=== PATIENT | female | born 1970 | race Two or more races ===

== ENCOUNTER 2020-03-19 14:58 | Outpatient (REF) | payer OTHER, SELFPAY | END 2020-03-19 14:59 | disposition home or self-care (01) | LOC: HO.LAB 14:58 | PROVIDERS: Visit Provider Internal Medicine | DX: Z20.828 Contact with and (suspected) exposure to other viral communicable diseases (principal) | CPT/HCPCS: C9803; U0003 ==

== ENCOUNTER 2020-03-23 13:32 | Outpatient (REF) | payer OTHER, SELFPAY ==
--- NOTE | 2020-03-23 13:39 | XR_ITS ---
EXAMINATION: XR CHEST CLINICAL INFORMATION: Cough COMPARISON: Previous chest x-ray December 2019 TECHNIQUE: 2 views of the chest were obtained. FINDINGS: No significant abnormality is noted involving the heart, lungs, mediastinum, bony thorax or soft tissues. XR/XR chest 2V IMPRESSION: Unremarkable examination.
== END 2020-03-23 13:33 | disposition home or self-care (01) ==
LOC: HO.XRAY 13:32
PROVIDERS: Absent Provider General Practice; PCP General Practice; Visit Provider Internal Medicine
DX: R05 Cough (principal)
CPT/HCPCS: 71046

== ENCOUNTER 2020-06-07 08:00 | Outpatient (REF) | payer MEDICAID, SELFPAY ==
--- NOTE | 2020-06-07 | PFT_ITS ---
Forced vital capacity and FEV1 are both slightly decreased. FEV1/FVC ratio is normal. [id number] and MVV are normal. Post bronchodilator therapy, there is no significant change. Total lung capacity normal. Residual volume is moderately increased. Diffusion capacity normal. CONCLUSION: FVC and FEV1 slightly decreased, but total lung capacity is normal, so there is no evidence of obstructive or restrictive pulmonary disorder. No response to bronchodilator therapy. Residual volume is moderately increased. This could be due to technical reason or some degree of air trapping. Clinical correlation recommended. MD SHANNON Whitman/MODL / [id number]
== END 2020-06-07 08:01 | disposition home or self-care (01) ==
LOC: HO.RESP 08:00
PROVIDERS: PCP General Practice; Visit Provider General Practice
DX: R05 Cough (principal); F17.210 Nicotine dependence, cigarettes, uncomplicated
CPT/HCPCS: 94060; 94727; 94729

== ENCOUNTER 2020-07-12 11:30 | Outpatient (REF) | payer MEDICAID, SELFPAY ==
--- NOTE | ~2020-07-12 | XR_ITS ---
EXAMINATION: RIGHT ANKLE AND FOOT X-RAY CLINICAL INFORMATION: Pain COMPARISON: None TECHNIQUE: 3 views of the right ankle and 3 views of the right foot FINDINGS: Right ankle: Bone alignment is normal. No fracture or dislocation is seen. The ankle mortise is normal. Soft tissues are normal. Right foot: Bone alignment is normal. No fracture or dislocation is seen. The joint spaces are normal. There are calcaneal spurs. Soft tissues are otherwise normal. XR/XR ankle RT min 3V IMPRESSION: Calcaneal spurs otherwise unremarkable exam.
--- NOTE | ~2020-07-12 | XR_ITS ---
EXAMINATION: RIGHT ANKLE AND FOOT X-RAY CLINICAL INFORMATION: Pain COMPARISON: None TECHNIQUE: 3 views of the right ankle and 3 views of the right foot FINDINGS: Right ankle: Bone alignment is normal. No fracture or dislocation is seen. The ankle mortise is normal. Soft tissues are normal. Right foot: Bone alignment is normal. No fracture or dislocation is seen. The joint spaces are normal. There are calcaneal spurs. Soft tissues are otherwise normal. XR/XR foot RT 2V IMPRESSION: Calcaneal spurs otherwise unremarkable exam.
== END 2020-07-12 11:31 | disposition home or self-care (01) ==
LOC: HO.XRAY 11:30
PROVIDERS: PCP General Practice; Visit Provider Student in an Organized Health Care Education/Training Program
DX: M25.571 Pain in right ankle and joints of right foot (principal)
CPT/HCPCS: 73610; 73620

== ENCOUNTER → 2020-08-10 09:01 | Outpatient (BNVA) | payer MEDICAID, SELFPAY | PROVIDERS: PCP General Practice; Visit Provider Internal Medicine Pulmonary Disease | DX: R05 Cough (principal); R06.00 Dyspnea, unspecified | CPT/HCPCS: 99202 ==

== ENCOUNTER 2020-10-27 13:04 | Outpatient (REF) | payer MEDICAID, SELFPAY ==
--- NOTE | ~2020-10-27 | MM_ITS ---
EXAMINATION: MM SCREENING DIGITAL BREAST TOMOSYNTHESIS, BILATERAL CLINICAL INFORMATION: Screening. Asymptomatic. The lifetime risk of breast cancer based on the Tyrer-Cuzick Model is 9%. COMPARISON: Mammography: 09/17/2018, 09/17/2015 TECHNIQUE: Digital breast tomosynthesis is performed in both the craniocaudal and mediolateral oblique views along with computer-aided detection (CAD). Synthesized 2D images are generated from the tomosynthesis. Additional left CC view is provided. FINDINGS: The breasts are almost entirely fatty (ACR BI-RADS breast composition Category a). There are no significant masses, abnormal calcifications, or other abnormalities. Background stromal markings are stable. The axilla and skin contours are unremarkable. MM/MM tomosynthesis screening BI IMPRESSION: No mammographic evidence of malignancy. ASSESSMENT: BI-RADS 1: Negative RECOMMENDATION: Routine annual mammography screening. This patient's information was entered into a reminder system with a target due date for their next mammogram.
== END 2020-10-27 13:05 | disposition home or self-care (01) ==
LOC: HO.MAMMO 13:04
PROVIDERS: PCP General Practice; Visit Provider General Practice
DX: Z12.31 Encounter for screening mammogram for malignant neoplasm of breast (principal)
CPT/HCPCS: 77063; 77067

== ENCOUNTER 2020-12-17 08:55 | Outpatient (REF) | payer MEDICAID, SELFPAY ==
[2020-12-17 09:50] LABS: COVID-19 Test Negative (Negative)
== END 2020-12-17 08:56 | disposition home or self-care (01) ==
LOC: HO.LAB 08:55
PROVIDERS: PCP General Practice; Visit Provider Internal Medicine
DX: Z20.822 Contact with and (suspected) exposure to COVID-19 (principal)
CPT/HCPCS: 36415; 87635; C9803

== ENCOUNTER 2021-02-11 09:15 | Outpatient (REF) | payer MEDICAID, SELFPAY ==
[2021-02-11 12:13] LABS: TSH reflex Free T4 1.31 uIU/mL (0.32-4.0)
[2021-02-11 12:21] LABS: Folate 4.6 ng/mL (> or = 4.0); Vitamin B12 449 pg/mL (200-900)
[2021-02-14 16:16] LABS: Transglutaminase Ab IgG <1.0 U/mL; Transglutaminase IgA <1.0 U/mL
[2021-02-17 17:22] LABS: Vitamin D 25-OH, D2 <4 ng/mL; Vitamin D 25-OH, D3 21 ng/mL; Vitamin D 25-OH, Total 21 ng/mL (30-100)
== END 2021-02-11 09:16 | disposition home or self-care (01) ==
LOC: HO.LAB 09:15
PROVIDERS: PCP General Practice; Referring Provider General Practice; Visit Provider Nurse Practitioner Family
DX: K21.9 Gastro-esophageal reflux disease without esophagitis (principal); K58.2 Mixed irritable bowel syndrome; R14.0 Abdominal distension (gaseous); R13.10 Dysphagia, unspecified; R19.7 Diarrhea, unspecified; R10.11 Right upper quadrant pain; E55.9 Vitamin D deficiency, unspecified
CPT/HCPCS: 36415; 82306; 82607; 82746; 83516; 84443; 99202

== ENCOUNTER 2021-03-18 10:22 | Outpatient (REF) | payer MEDICAID, SELFPAY ==
--- NOTE | ~2021-03-18 | FL_ITS ---
EXAMINATION: FL BARIUM SWALLOW CLINICAL INFORMATION: Dysphagia COMPARISON: None TECHNIQUE: Barium swallow examination is performed using fluoroscopic evaluation in addition to multiple fluoroscopic spot views. The patient is imaged both upright and prone and using both thick and thin sulfate along with effervescent granules. Fluoroscopy time: 2.2 minutes DAP: 10.509 Gycm2 Images: 57 FINDINGS: Following oral administration of thin, thick barium, barium coated saltine crackers and barium coated turkey in upright view there is normal propagation of bolus from the oral cavity through the pharynx, esophagus into the stomach without any evidence of obstruction, narrowing or stricture. There is no laryngeal penetration or aspiration or retention of barium in the valleculae or piriform sinuses. On placing patient supine and prone lying and oral administration of thick barium there is good distention of the entire esophagus without any intraluminal filling defect or extrinsic impression. No gastroesophageal reflux seen in supine or lying position. FL/FL barium swallow IMPRESSION: Unremarkable barium swallow exam. No obstructive or constricting lesions seen. No intraluminal filling defect.
== END 2021-03-18 10:23 | disposition home or self-care (01) ==
LOC: HO.XRAY 10:22
PROVIDERS: Visit Provider Nurse Practitioner Family
DX: R13.10 Dysphagia, unspecified (principal)
CPT/HCPCS: 74220

== ENCOUNTER → 2021-05-12 08:01 | Outpatient (BNVA) | payer MEDICAID, SELFPAY | PROVIDERS: PCP General Practice; Referring Provider General Practice; Visit Provider Nurse Practitioner Family | DX: K21.9 Gastro-esophageal reflux disease without esophagitis (principal); K58.1 Irritable bowel syndrome with constipation; R14.0 Abdominal distension (gaseous) | CPT/HCPCS: 99212 ==

== ENCOUNTER 2021-09-01 02:58 | Emergency (ER) | payer MEDICAID, SELFPAY ==
[2021-09-01 03:23] VITALS: BP 115/53; PULSE 84; RESP 16; TEMP 36.1; O2SAT 97; BMI 42.5
[2021-09-01 03:25] LABS: Basophils Percent Auto 0.3 % (0-2); Eosinophils Absolute Auto 0.3 X10*3/uL (0.0-0.4); Eosinophils Percent Auto 3.7 % (0-4); Hematocrit 42.7 % (37.0-47.0); Hemoglobin 14.1 g/dl (12.0-16.0); Imm Gran Abs Auto 0.02 X10*3/uL (0.00-0.03); Imm Gran Pct Auto 0.2 % (0.0-0.4); Lymphocytes Percent Auto 33.7 % (20-40); MANUAL DIFF FLAG NO; Mean Corpuscular Hemoglobin 28.3 pg (27.0-33.0); Mean Corpuscular Volume 85.7 fL (80.0-98.0); Mean Platelet Volume 8.3 fL (9.4-12.3); Monocytes Absolute Auto 0.6 X10*3/uL (0.1-1.2); Monocytes Percent Auto 7.2 % (2-11); Neutrophils Absolute Auto 4.9 x10*3/uL (2.0-8.3); Neutrophils Percent Auto 54.9 % (45-73); Platelet Count 285 X10*3/uL (160-400); Red Blood Count 4.98 X10*6/uL (4.20-5.50); Red Cell Distribution Width 14.1 % (11.0-16.0); White Blood Count 8.9 X10*3/uL (4.8-10.8)
[2021-09-01 03:27] LABS: Appearance Urine CLEAR; Color Urine YELLOW; Glucose Urine UA NEG (NEG); Leukocyte Esterase Urine NEG (NEG); Nitrite Urine NEG (NEG); Specific Gravity - Urine 1.025 (1.005-1.025); Urine Blood NEG (NEG); Urine Ketones NEG (NEG); Urine Protein NEG (NEG-TRACE)
[2021-09-01 03:28] LABS: UPreg QC Valid YES; Urine Pregnancy NEGATIVE (NEGATIVE)
[2021-09-01 03:44] LABS: Alanine Aminotransferase 12 U/L (0-31); Albumin Level 3.7 g/dL (3.5-5.0); Alkaline Phosphatase 86 U/L (39-117); Anion Gap 11 (12-20); Aspartate Amino Transferase 12 U/L (5-31); Bilirubin Total 0.2 mg/dL (0.0-1.0); Blood Urea Nitrogen 10 mg/dL (9-16); Calcium 9.1 mg/dL (8.4-10.2); Carbon Dioxide 25 mmol/L (22-29); Chloride 106 mmol/L (96-108); Creatinine Clr Calc Pharmacy 105.1; Estimated Glomerular Filt Rate > 60; Glucose Random 94 mg/dL (60-115); Lipase 17 U/L (8-78); Potassium 4.4 mmol/L (3.3-5.1); Sodium 138 mmol/L (135-145); Total Protein 6.6 g/dL (6.5-8.0)
--- NOTE | 2021-09-01 08:03 | ED.GENADULT ---
HPI - General Adult General Chief complaint: Abdominal Pain Stated complaint: Back pain/Abd pain Time Seen by Provider: 09/01/21 08:03 Source: patient and family () Mode of arrival: ambulatory Limitations: no limitations History of Present Illness HPI narrative: Patient is a 51 year old female presenting to the emergency department today with generalized abdominal pain and diarrhea. Patient states that she has this pain intermittently and this time it has been worsening since Sunday. Patient denies any dizziness, lightheadedness, nausea, vomiting, fever, chills, blurry vision, double vision, loss of vision, chest pain, difficulty breathing, shortness of breath, back pain, night sweats, pain with urination, increased urinary frequency, increased urinary urgency, blood in her urine or stool, syncope or a near syncopal episode, recent trauma or falls, bowel incontinence, bladder incontinence, bowel retention, bladder retention, or any other complaints at this time. Patient states that she has never seen a GI Specialist for this. Onset (ago): day(s) Location: abdomen Radiation: non-radiation Severity: mild Severity scale (1-10): 4 Quality: dull Pain Consistency: intermittent Relieving factors: none Exacerbating factors: none Associated symptoms: denies other symptoms Treatments prior to arrival: none Related Data Home Medications Medication Instructions Recorded Confirmed acetaminophen 500 mg tablet 500 mg PO Q6H PRN 02/11/21 (Tylenol Extra Strength) Previous Rx's Medication Instructions Recorded methylcellulose (laxative) 500 mg 500 mg PO DAILY #30 tab 02/11/21 tablet (Citrucel) cholecalciferol (vitamin D3) 50 50 mcg PO DAILY #30 cap 05/12/21 mcg (2,000 unit) capsule omeprazole 20 mg capsule,delayed 20 mg PO DAILY #30 cap 05/12/21 release sennosides 8.6 mg tablet (Natural 8.6 mg PO BEDTIME #30 tab 05/12/21 Senna Laxative) Allergies Allergy/AdvReac Type Severity Reaction Status Date / Time Penicillins Allergy Unknown Verified 09/01/21 03:24 Review of Systems Constitutional: Constitutional: Reports no additional constitutional complaints, Denies chills, Denies fever(s) and Denies night sweats Eyes: Eyes: Reports no additional eye complaints, Denies blurry vision, Denies change in vision, Denies diplopia, Denies eye discharge, Denies loss of vision and Denies eye pain ENT: Denies dizziness Cardiovascular: Cardiovascular: Reports no additional cardiovascular complaints, Denies chest pain, Denies lightheadedness, Denies Loss of Consciousness and Denies dyspnea Respiratory: Respiratory: Reports no additional respiratory complaints and Denies dyspnea Gastrointestinal: Gastrointestinal: Reports no additional gastrointestinal complaints, Reports abdominal pain, Denies melena, Denies hematochezia, Denies change in bowel habits, Denies change in stool character and Reports diarrhea Genitourinary: Genitourinary: Denies hematuria, Denies urinary frequency, Denies dysuria, Denies urinary incontinence, Denies urinary hesitancy and Denies urinary urgency Musculoskeletal: Musculoskeletal: Reports no additional musculoskeletal complaints, Denies numbness and Denies tingling Neurologic: Denies dizziness, Denies loss of vision, Denies numbness and Denies tingling Psychiatric: Psychiatric: Reports no additional psychiatric complaints Endocrine: Endocrine: Reports no additional endocrine complaints Hematologic/Lymphatic: Hematologic/Lymphatic: Reports no additional hematologic/lymphatic complaints Allergic/Immunologic: Allergic/Immunologic: Reports no additional allergic/immunologic complaints PMFSH Past Medical History Attestation statement: The following information was validated with the patient. Source: old records reviewed Surgical History History of esophagogastroduodenoscopy (EGD) Hx of section Family History Family History Mother Cancer Social History Social History Years Smoked: since 19 yrs old Advance Directives: Yes Advance Directives Information Provided: Yes Advance Directives on File: No Physical Exam ED Vital Signs: Vital Signs - 24 hr 09/01/21 03:23 Temperature 97 F Pulse Rate 84 Respiratory Rate 16 Blood Pressure 115/53 L Pulse Oximetry 97 BMI result Body Mass Index 42.5 Const General: cooperative, no acute distress, alert and awake Nutritional Appearance: well nourished Orientation/consciousness: patient oriented x3 Limitations: no limitations HENMT Head: Yes normal to inspection and Yes atraumatic Ears: hearing grossly normal bilaterally and external ears normal General nose exam: Normal external nose present, no nasal discharge noted and no epistaxis Face and sinus: Yes normal facial exam, No abrasion and No laceration Mouth: Normal oral and palatal mucosa present, no drooling and no muffled voice Eyes General: appearance normal, both eyes and all related structures Periorbital: periorbital findings normal Eyelids: Yes eyelids normal Conjunctivae: conjunctivae normal Pupils: Equal, round and reactive pupils present EOM: EOMs intact bilaterally Neck Neck: Yes normal visual inspection, Yes full ROM and Yes no lymphadenopathy Chest Chest palpation & inspection: normal inspection of the chest Resp Effort & Inspection: normal respiratory effort and able to speak in complete sentences Auscultation: clear to auscultation bilaterally Cardio Rate: regular rate Rhythm: regular rhythm GI Inspection: Yes normal to inspection Palpation (GI): Soft to palpation, not firm, nontender, no guarding and not rigid Neuro General: patient oriented x3 and moves all extremities Cranial nerves: Yes Equal, round and reactive pupils present Cognition (Neuro): normal cognition Motor exam (neuro): 5/5 motor strength present throughout Sensory Exam: Normal double simultaneous stimulation for sensation Coordination: [id number] test normal Extrem General: Yes normal to inspection, Yes full ROM and Yes capillary refill normal Psych Appearance: grossly normal Mental Status: mental status grossly normal Affect: normal affect Attitude: cooperative Thought process: Normal thought process present Thought content: Normal thought content present Insight: Good insight present (Psych) Medical Decision Making [facility] Narrative Medical decision making narrative: Patient is a 51 year old female presenting to the emergency department today with diarrhea and generalized abdominal pain. Patient's physical exam was unremarkable, including a normal abdominal examination. Patient's blood work was unremarkable. Patient's urine showed no acute process. I explained my physical exam findings as well as all test results to the patient and the patient's . I answered all questions asked by the patient and the patient's . Patient stated that she absolutely did not want to wait for a CT scan or any further testing and that she wanted to go. I explained to the patient that while it's unlikely she has an infectious process in her abdomen, I do not have the ability to rule it out definitively without imaging. Patient states that she understands that and wants to leave. I stressed the importance of the patient taking her medication as prescribed. I stressed the importance of the patient following up with her primary care provider and a GI specialist. I stressed the importance of the patient returning to the emergency department immediately if her symptoms were to worsen or if she were to develop any dizziness, shortness of breath, difficulty breathing, chest pain, blurry vision, loss of vision, nausea, vomiting, abdominal pain, fever, chills, back pain, or any other complaints. Patient and the patient's verbalized agreement and understanding with this treatment plan and discharge. Differential Diagnosis Differential Diagnosis: gastroenteritis, abdominal pain Medical Records Medical records reviewed: Yes I reviewed the patient's medical records. Lab Data Lab results reviewed: Yes I reviewed the patient's lab results. Result diagrams: 09/01/21 03:20 09/01/21 03:20 Labs: Lab Results 09/01/21 09/01/21 09/01/21 Range/Units 03:20 03:20 03:20 WBC 8.9 (4.8-10.8) X10*3/uL RBC 4.98 (4.20-5.50) X10*6/uL Hgb 14.1 (12.0-16.0) g/dl Hct 42.7 (37.0-47.0) % MCV 85.7 (80.0-98.0) fL MCH 28.3 (27.0-33.0) pg MCHC 33.0 (31.0-35.0) g/dl RDW 14.1 (11.0-16.0) % Plt Count 285 (160-400) X10*3/uL MPV 8.3 L (9.4-12.3) fL Immature Gran % (Auto) 0.2 (0.0-0.4) % Neut % (Auto) 54.9 (45-73) % Lymph % (Auto) 33.7 (20-40) % Sumner % (Auto) 7.2 (2-11) % Eos % (Auto) 3.7 (0-4) % Baso % (Auto) 0.3 (0-2) % Lymph # (Auto) 3.0 (1.2-4.9) X10*3/uL Sumner # (Auto) 0.6 (0.1-1.2) X10*3/uL Eos # (Auto) 0.3 (0.0-0.4) X10*3/uL Baso # (Auto) 0.0 (0.0-0.2) X10*3/uL Abs Immat Gran (auto) 0.02 (0.00-0.03) X10*3/uL Absolute Neuts (auto) 4.9 (2.0-8.3) x10*3/uL Absolute Nucleated RBC 0.000 (0.0-0.012) X10*3/uL Nucleated RBC % (auto) 0.0 (0.0-0.2) /100WBC Sodium 138 (135-145) mmol/L Potassium 4.4 (3.3-5.1) mmol/L Chloride 106 (96-108) mmol/L Carbon Dioxide 25 (22-29) mmol/L Anion Gap 11 L (12-20) BUN 10 (9-16) mg/dL Creatinine 0.71 (0.5-1.4) mg/dL Estim Creat Clear Calc 105.1 Estimated GFR > 60 Random Glucose 94 (60-115) mg/dL Calcium 9.1 (8.4-10.2) mg/dL Total Bilirubin 0.2 (0.0-1.0) mg/dL AST 12 (5-31) U/L ALT 12 (0-31) U/L Alkaline Phosphatase 86 (39-117) U/L Total Protein 6.6 (6.5-8.0) g/dL Albumin 3.7 (3.5-5.0) g/dL Lipase 17 (8-78) U/L Urine Color YELLOW Urine Appearance CLEAR Urine pH 6.0 (5.0-8.0) Ur Specific Emmett 1.025 (1.005-1.025) Urine Protein NEG (NEG-TRACE) MG/DL Urine Glucose (UA) NEG (NEG) MG/DL Urine Ketones NEG (NEG) MG/DL Urine Blood NEG (NEG) Urine Nitrite NEG (NEG) Ur Leukocyte Esterase NEG (NEG) Urine Test (NEGATIVE) 09/01/21 Range/Units 03:20 WBC (4.8-10.8) X10*3/uL RBC (4.20-5.50) X10*6/uL Hgb (12.0-16.0) g/dl Hct (37.0-47.0) % MCV (80.0-98.0) fL MCH (27.0-33.0) pg MCHC (31.0-35.0) g/dl RDW (11.0-16.0) % Plt Count (160-400) X10*3/uL MPV (9.4-12.3) fL Immature Gran % (Auto) (0.0-0.4) % Neut % (Auto) (45-73) % Lymph % (Auto) (20-40) % Sumner % (Auto) (2-11) % Eos % (Auto) (0-4) % Baso % (Auto) (0-2) % Lymph # (Auto) (1.2-4.9) X10*3/uL Sumner # (Auto) (0.1-1.2) X10*3/uL Eos # (Auto) (0.0-0.4) X10*3/uL Baso # (Auto) (0.0-0.2) X10*3/uL Abs Immat Gran (auto) (0.00-0.03) X10*3/uL Absolute Neuts (auto) (2.0-8.3) x10*3/uL Absolute Nucleated RBC (0.0-0.012) X10*3/uL Nucleated RBC % (auto) (0.0-0.2) /100WBC Sodium (135-145) mmol/L Potassium (3.3-5.1) mmol/L Chloride (96-108) mmol/L Carbon Dioxide (22-29) mmol/L Anion Gap (12-20) BUN (9-16) mg/dL Creatinine (0.5-1.4) mg/dL Estim Creat Clear Calc Estimated GFR Random Glucose (60-115) mg/dL Calcium (8.4-10.2) mg/dL Total Bilirubin (0.0-1.0) mg/dL AST (5-31) U/L ALT (0-31) U/L Alkaline Phosphatase (39-117) U/L Total Protein (6.5-8.0) g/dL Albumin (3.5-5.0) g/dL Lipase (8-78) U/L Urine Color Urine Appearance Urine pH (5.0-8.0) Ur Specific Emmett (1.005-1.025) Urine Protein (NEG-TRACE) MG/DL Urine Glucose (UA) (NEG) MG/DL Urine Ketones (NEG) MG/DL Urine Blood (NEG) Urine Nitrite (NEG) Ur Leukocyte Esterase (NEG) Urine Test NEGATIVE (NEGATIVE) Discharge Plan Discharge Clinical Impression: Gastroenteritis Patient Disposition: Home, Self-Care Instructions: Gastroenteritis (DC) Additional Instructions: Follow up with your primary care provider. Return to the emergency department immediately if your symptoms worsen or if you develop any dizziness, shortness of breath, difficulty breathing, chest pain, blurry vision, loss of vision, nausea, vomiting, abdominal pain, fever, chills, back pain, or any other complaints. Prescriptions: No Action acetaminophen [Tylenol Extra Strength] 500 mg tablet 500 mg PO Q6H [id number] Citrucel 500 mg tablet 500 mg PO DAILY Qty: 30 2RF Rx Instructions: take it with full glass of water after breakfast omeprazole 20 mg capsule,delayed release(DR/EC) 20 mg PO DAILY Qty: 30 6RF Rx Instructions: half an hour before breakfast cholecalciferol (vitamin D3) 50 mcg (2,000 unit) capsule 50 mcg PO DAILY Qty: 30 6RF sennosides [Natural Senna Laxative] 8.6 mg tablet 8.6 mg PO BEDTIME Qty: 30 6RF Referrals: [facility] [place]enterology Services [place] [facility] [place] [facility] [place] [facility] [Provider Group] [facility] [place] [facility] [Provider Group] Interventions: ED Discharge Assessment Last Done: 09/01/21 08:12 Discharge Date/Time: 09/01/21 08:13 Print Language: Ukrainian
--- NOTE | 2021-09-01 08:08 | PC.NURSE ---
after speaking with provider, pt and left ed
== END 2021-09-01 08:13 | disposition home or self-care (01) ==
PROVIDERS: Emergency Provider Emergency Medicine
DX: K52.9 Noninfective gastroenteritis and colitis, unspecified (principal); M54.50 Low back pain, unspecified; R10.9 Unspecified abdominal pain; Z79.899 Other long term (current) drug therapy
CPT/HCPCS: 36415; 80053; 81003; 81025; 83690; 85025; 99283; 99284

== ENCOUNTER → 2022-12-11 11:15 | Outpatient (BNV) | payer MEDICAID, SELFPAY | PROVIDERS: Visit Provider Radiology Diagnostic Radiology | DX: Z12.31 Encounter for screening mammogram for malignant neoplasm of breast (principal) | CPT/HCPCS: 77063; 77067 ==

== ENCOUNTER 2022-12-11 11:33 | Outpatient (REF) | payer MEDICAID, SELFPAY ==
--- NOTE | ~2022-12-11 | MM_ITS ---
EXAMINATION: MM SCREENING DIGITAL BREAST TOMOSYNTHESIS, BILATERAL CLINICAL INFORMATION: Screening. Asymptomatic. COMPARISON: Mammography: This study is compared with prior exams dating back to 2016. TECHNIQUE: Digital breast tomosynthesis is performed in both the craniocaudal and mediolateral oblique views along with computer-aided detection (CAD). Synthesized 2D images are generated from the tomosynthesis. FINDINGS: The breasts are almost entirely fatty (ACR BI-RADS breast composition Category a). There are no significant masses, abnormal calcifications, or other abnormalities. MM/MM tomosynthesis screening BI IMPRESSION: No mammographic evidence of malignancy. ASSESSMENT: BI-RADS BI-RADS 1 - Negative RECOMMENDATION: Routine annual mammography screening. 1 year F/U This examination should not preclude the clinical evaluation of a suspicious palpable abnormality. This patient's information was entered into a reminder system with a target due date for their next mammogram.
== END 2022-12-11 11:34 | disposition home or self-care (01) ==
LOC: HO.MAMMO 11:33
PROVIDERS: Visit Provider General Practice
DX: Z12.31 Encounter for screening mammogram for malignant neoplasm of breast (principal)
CPT/HCPCS: 77063; 77067

== ENCOUNTER 2023-03-06 08:01 | Outpatient (REF) | payer MEDICAID, SELFPAY ==
[2023-03-06 11:39] LABS: Alanine Aminotransferase 12 U/L (0-31); Albumin Level 3.8 g/dL (3.5-5.0); Alkaline Phosphatase 93 U/L (39-117); Anion Gap 10 (12-20); Aspartate Amino Transferase 16 U/L (5-31); Bilirubin Total 0.3 mg/dL (0.0-1.0); Blood Urea Nitrogen 10 mg/dL (9-16); Calcium 9.1 mg/dL (8.4-10.2); Carbon Dioxide 28 mmol/L (22-29); Chloride 105 mmol/L (96-108); Cholesterol 171 mg/dL (<200); Estimated Glomerular Filt Rate > 60; Glucose Random 95 mg/dL (60-115); HDL Cholesterol 43 mg/dL (>40); LDL Cholesterol Calculated 115 mg/dL (<100); Potassium 3.7 mmol/L (3.3-5.1); Sodium 139 mmol/L (135-145); Triglycerides 68 mg/dL (<150)
[2023-03-06 11:43] LABS: Estimated Average Glucose 111 mg/dL; Hemoglobin A1c % 5.5 % (<6.0)
== END 2023-03-06 08:02 | disposition home or self-care (01) ==
LOC: HO.HHCL 08:01
PROVIDERS: Visit Provider General Practice
DX: E66.3 Overweight (principal)
CPT/HCPCS: 36415; 80053; 80061; 83036

== ENCOUNTER 2023-05-08 09:21 | Outpatient (AMB) | payer MEDICAID, SELFPAY ==
--- NOTE | 2023-05-08 09:29 | A.OFFVIS_ITS ---
Intake Vital Signs 05/08/23 09:34 Height 5 ft 1 in Weight 231 lb 7.766 oz BMI 43.7 BP 107/62 Blood Pressure Location Lt brachial Position Sitting Pulse 80 Intake Visit Reasons: Rediscuss Colonoscopy Screening Intake Note: Violette presents in the office to dom having a colonoscopy. CC: She states that she does not want to do the procedure at all. 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 Back in January 2021 patient was asked to have H pylori testing done. Patient forgot to do it. Patient also reports that she has not been taking any of the medications that are prescribed to her. Patient only takes it when she has severe acid reflux. Patient reports that this happens about couple times a week. Patient states that she learned to live with that. Discussed with p atient the importance of avoiding dietary triggers and late night snacking. Stressed importance of staying upright for minimal 3 hours after meals. I will print directions for patient's on how to take medications and she will put it some were visible that will remind her to take the medications. IBS (irritable bowel syndrome) Postprandial abdominal bloating most likely related to the food that she eats. Patient reports to be constipated. If she does not have a bowel movement for 2-3 days she will have postprandial bloating. Patient has not been using Senokot or Citrucel on a daily basis is ordered. Patient reports that she will a cane will gently use it when she needs it. I stressed to her the importance of moving her bowels every day and feeling like she empty it completely Abdominal bloating Postprandial abdominal bloating especially if she does not have bowel movement for 2-3 days. Patient was encouraged to take prescribed Citrucel and Senokot to her. Also discussed with her avoiding dietary triggers. FODMAP diet discussed with her. Food that is recommended and food to avoid. List provided. I will see patient in 6 months. Patient will call me sooner if she will continue to have GI concerning symptoms. Patient was encouraged to going get her stool sample for H pylori. She is agreeable to plan of care and verbalizes understanding of instructions. She was given the opportunity to ask questions and all questions answered. ? Thank you for allowing me to participate in her care Plan Medications Changed From omeprazole half an hour before breakfast and half an hour before dinner 20 mg PO BID 60 caps 0RF K21.9 To omeprazole half an hour before breakfast 20 mg PO DAILY 30 caps 6RF K21.9 Refilled cholecalciferol (vitamin D3) 50 mcg PO DAILY 30 caps 6RF R79.89 sennosides (Natural Senna Laxative) 8.6 mg PO BEDTIME 30 tabs 6RF constipation K59.00 TODAY'S VISIT Patient is here today for follow-up. Patient states that she does not want to go for colonoscopy. Patient reports that she continues to have epigastric discomfort postprandially with dyspepsia without dysphagia or odynophagia. Patient states that she has not taken omeprazole as it was not helpful. Patient states that she is not avoiding any food, not on any particular diet. Patient has not done any of the test for H pylori that was ordered back in 2020. Patient has not seen me for almost 2 years. Patient denies any nausea or vomiting. Denies melena, hematochezia, unintentional weight loss or ribbon like stools. Patient denies any abdominal pain or discomfort. [facility] Surgical History History of esophagogastroduodenoscopy (EGD) Hx of section Family History Mother Cancer Social History Years Smoked: since 19 yrs old Review of Systems Const Denies weight gain and Denies weight loss ENT Reports no additional complaints, Denies dysphagia and Denies odynophagia Card Reports no additional complaints Resp Reports no additional complaints GI Reports abdominal pain (Epigastric), Denies belching, Denies melena, Denies bloating, Denies change in bowel habits, Denies dysphagia, Denies excessive flatus, Reports dyspepsia, Reports heartburn, Denies diarrhea, Denies loose stools, Denies nausea, Denies odynophagia and Denies vomiting Reports no additional complaints Musc Reports no additional complaints Neuro Reports no additional complaints Psych Reports no additional complaints Endo Reports no additional complaints Physical Exam Vital Signs: Last Vital Signs Pulse 80 05/08/23 09:34 BP 107/62 05/08/23 09:34 BMI result Body Mass Index 43.7 Const General: healthy appearing, no acute distress and well developed Nutritional Appearance: obese Orientation/consciousness: patient oriented x3 Resp Effort & Inspection: normal respiratory effort, able to speak in complete sentences, no tracheal deviation and symmetric chest movement Auscultation: clear to auscultation bilaterally Cardio Rate: regular rate GI Inspection: Yes normal to inspection, No distended and Yes obesity Palpation (GI): Soft to palpation, not firm, nontender and No hepatosplenomegaly present Auscultation: normal bowel sounds General: Yes no CVA tenderness Back/Spine/Pelvis Back: no CVA tenderness Skin General skin exam: elasticity normal, turgor normal and dry skin Neuro General: patient oriented x3 Psych Appearance: grossly normal Mental Status: mental status grossly normal Assessment & Plan Assessment & Plan (1) GERD (gastroesophageal reflux disease): Code(s): K21.9 - Gastro-esophageal reflux disease without esophagitis Qualifiers: Esophagitis presence: esophagitis presence not specified Qualified Code(s): K21.9 - Gastro-esophageal reflux disease without esophagitis (2) Postprandial epigastric pain: Code(s): R10.13 - Epigastric pain (3) IBS (irritable bowel syndrome): Code(s): K58.9 - Irritable bowel syndrome without diarrhea Qualifiers: Irritable bowel syndrome type: without diarrhea Qualified Code(s): K58.9 - Irritable bowel syndrome without diarrhea (4) Abdominal bloating: Code(s): R14.0 - Abdominal distension (gaseous) (5) Screen for colon cancer: Code(s): Z12.11 - Encounter for screening for malignant neoplasm of colon Plan Patient will avoid dietary triggers and late night snacking. Staying upright for minimum 3 hours after meals discussed with patient. Patient will stop omeprazole and start taking Nexium daily. Patient is refusing still to go for colonoscopy. Will order Cologuard. Patient will follow-up in 4 weeks, sooner on as needed basis. Patient is agreeable to this plan and verbalizes understanding of instructions. She was given the opportunity to ask questions and all questions answered. Thank you for allowing me to participate in her care Medications: New esomeprazole magnesium (Nexium) 40 mg PO DAILY 30 caps 5RF K21.9 - Gastro- esophageal reflux disease without esophagitis cholecalciferol (vitamin D3) 50 mcg PO DAILY 90 caps 3RF R79.89 - Other specified abnormal findings of blood chemistry Discontinued omeprazole half an hour before breakfast Discontinued Reason: Doctor's Order 20 mg PO DAILY 30 caps 6RF K21.9 - Gastro-esophageal reflux disease without esophagitis Coding Level of Care Code Est Pt Level 4 (82090) Diagnoses Gastroesophageal reflux disease, unspecified whether esophagitis present K21.9 Esophagitis presence: esophagitis presence not specified Postprandial epigastric pain R10.13 Irritable bowel syndrome without diarrhea K58.9 Irritable bowel syndrome type: without diarrhea Abdominal bloating R14.0 Screen for colon cancer Z12.11 Time Spent (min) 40 Comment 25 minutes spent with patient and additional 15 minutes spent reviewing her r ecords
[2023-05-08 09:34] VITALS: BP 107/62; PULSE 80; BMI 43.7
== END 2023-05-08 09:55 | disposition home or self-care (01) ==
PROVIDERS: Visit Provider Nurse Practitioner Family
DX: K21.9 Gastro-esophageal reflux disease without esophagitis (principal); K58.9 Irritable bowel syndrome, unspecified
CPT/HCPCS: 99214

== ENCOUNTER → 2023-05-08 09:21 | Outpatient (BNVA) | payer MEDICAID, SELFPAY | PROVIDERS: Visit Provider Nurse Practitioner Family | DX: K21.9 Gastro-esophageal reflux disease without esophagitis (principal); R10.13 Epigastric pain; K58.9 Irritable bowel syndrome, unspecified; R14.0 Abdominal distension (gaseous) | CPT/HCPCS: 99212 ==

== ENCOUNTER 2023-07-06 09:16 | Outpatient (AMB) | payer MEDICAID, SELFPAY ==
--- NOTE | 2023-07-06 09:20 | A.OFFVIS_ITS ---
Intake Vital Signs 07/06/23 09:22 Height 5 ft 1 in Weight 220 lb BMI 41.6 BP 111/64 Blood Pressure Location Lt brachial Position Sitting Pulse 85 Intake Visit Reasons: 2 month follow up Intake Note: Patient follow up for abdominal bloating Patient cc: abdominal bloating and esophagus inflammation, GERD is better with medication. 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 Staying upright for minimum 3 hours after meals discussed with patient. Patient will stop omeprazole and start taking Nexium daily. Patient is refusing still to go for colonoscopy. Will order Cologuard. Patient will follow-up in 4 weeks, sooner on as needed basis. Patient is agreeable to this plan and verbalizes understanding of instructions. She was given the opportunity to ask questions and all questions answered. ? Thank you for allowing me to participate in her care Medications New esomeprazole magnesium (Nexium) 40 mg PO DAILY 30 caps 5RF K21.9 cholecalciferol (vitamin D3) 50 mcg PO DAILY 90 caps 3RF R79.89 Discontinued omeprazole half an hour before breakfast Discontinued Reason: Doctor's Order 20 mg PO DAILY 30 caps 6RF K21.9 TODAY'S VISIT Patient is here today for follow-up. Patient reports that she has been feeling much better after starting Nexium, however she occasionally will feel burning sensation in epigastric area, feeling like there is something swollen or inflamed. Patient reports that she had an episode of severe epigastric pain and heartburn after eating pizza late at night. Patient reports that she is starting to change her diet, avoiding eating late at night, avoiding fast food and sweets. Patient's Cologuard came back negative. Patient denies melena, hematochezia, unintentional weight loss or ribbon like stools. Patient reports dyspepsia without dysphagia or odynophagia. Patient had no issues with anesthesia in the past. Not taking any anticoagulation medication. No history of sleep apnea. [facility] Surgical History History of esophagogastroduodenoscopy (EGD) Hx of section Family History Mother Cancer Social History Years Smoked: since 19 yrs old Review of Systems Const Denies weight gain and Denies weight loss ENT Reports no additional complaints, Denies dysphagia and Denies odynophagia Card Reports no additional complaints Resp Reports no additional complaints GI Denies abdominal pain, Denies belching, Denies melena, Denies bloating, Denies change in bowel habits, Denies dysphagia, Denies excessive flatus, Denies dyspepsia, Reports heartburn (occasional), Denies diarrhea, Denies loose stools, Denies nausea, Denies odynophagia and Denies vomiting Reports no additional complaints Musc Reports no additional complaints Neuro Reports no additional complaints Psych Reports no additional complaints Endo Reports no additional complaints Physical Exam Vital Signs: Last Vital Signs Pulse 85 07/06/23 09:22 BP 111/64 07/06/23 09:22 BMI result Body Mass Index 41.6 Const General: healthy appearing, no acute distress and well developed Nutritional Appearance: obese Orientation/consciousness: patient oriented x3 Resp Effort & Inspection: normal respiratory effort, able to speak in complete sentences, no tracheal deviation and symmetric chest movement Auscultation: clear to auscultation bilaterally Cardio Rate: regular rate GI Inspection: Yes normal to inspection, No distended and Yes obesity Palpation (GI): Soft to palpation, not firm, nontender and No hepatosplenomegaly present Auscultation: normal bowel sounds General: Yes no CVA tenderness Back/Spine/Pelvis Back: no CVA tenderness Skin General skin exam: elasticity normal, turgor normal and dry skin Neuro General: patient oriented x3 Psych Appearance: grossly normal Mental Status: mental status grossly normal Assessment & Plan Assessment & Plan (1) GERD (gastroesophageal reflux disease): Code(s): K21.9 - Gastro-esophageal reflux disease without esophagitis Qualifiers: Esophagitis presence: esophagitis presence not specified Qualified Code(s): K21.9 - Gastro-esophageal reflux disease without esophagitis (2) Postprandial epigastric pain: Code(s): R10.13 - Epigastric pain (3) IBS (irritable bowel syndrome): Code(s): K58.9 - Irritable bowel syndrome without diarrhea Qualifiers: Irritable bowel syndrome type: without diarrhea Qualified Code(s): K58.9 - Irritable bowel syndrome without diarrhea (4) Abdominal bloating: Code(s): R14.0 - Abdominal distension (gaseous) (5) Screen for colon cancer: Code(s): Z12.11 - Encounter for screening for malignant neoplasm of colon Plan Discussed with patient avoiding dietary triggers and late night snacking. Continue Nexium. Will add famotidine at bedtime staying upright for minimum 3 hours after meals discussed with patient. Patient reports epigastric burning, denies chest pain or shortness of breath with or without activity. Will send patient for upper GI study and for upper endoscopy to rule out gastritis, esophagitis, duodenitis, gastric or peptic ulcers, H pylori, Yin's. I will see patient after the procedure, sooner on as needed basis. Patient is agreeab le to this plan and verbalizes understanding of instructions. She was given the opportunity to ask questions and all questions answered. Thank you for allowing me to participate in her care Orders: Orders FL upper GI series Today K21.9 - Gastro-esophageal reflux disease without esophagitis Medications: New famotidine 40 mg PO BEDTIME 30 tabs 3RF K21.9 - Gastro-esophageal reflux disease without esophagitis Coding Level of Care Code Est Pt Level 4 (88675) Diagnoses Gastroesophageal reflux disease, unspecified whether esophagitis present K21.9 Esophagitis presence: esophagitis presence not specified Postprandial epigastric pain R10.13 Irritable bowel syndrome without diarrhea K58.9 Irritable bowel syndrome type: without diarrhea Abdominal bloating R14.0 Screen for colon cancer Z12.11 Time Spent (min) 35 Comment 20 minutes spent with patient and additional 15 minutes spent reviewing her records
[2023-07-06 09:22] VITALS: BP 111/64; PULSE 85; BMI 41.6
== END 2023-07-06 10:07 | disposition home or self-care (01) ==
PROVIDERS: Visit Provider Nurse Practitioner Family
DX: K21.9 Gastro-esophageal reflux disease without esophagitis (principal); R10.13 Epigastric pain; K58.9 Irritable bowel syndrome, unspecified; R14.0 Abdominal distension (gaseous); Z12.11 Encounter for screening for malignant neoplasm of colon
CPT/HCPCS: 99214

== ENCOUNTER → 2023-07-06 09:16 | Outpatient (BNVA) | payer MEDICAID, SELFPAY | PROVIDERS: Visit Provider Nurse Practitioner Family | DX: K21.9 Gastro-esophageal reflux disease without esophagitis (principal); R10.13 Epigastric pain; K58.9 Irritable bowel syndrome, unspecified; R14.0 Abdominal distension (gaseous); Z12.11 Encounter for screening for malignant neoplasm of colon | CPT/HCPCS: 99212 ==

== ENCOUNTER 2023-08-31 15:59 | Outpatient (REF) | payer MEDICAID, SELFPAY ==
[2023-08-31 17:37] LABS: MANUAL DIFF FLAG NO
[2023-08-31 17:53] LABS: Basophils Percent Auto 0.5 % (0-2); Eosinophils Absolute Auto 0.2 X10*3/uL (0.0-0.4); Eosinophils Percent Auto 2.2 % (0-4); Hematocrit 41.4 % (37.0-47.0); Hemoglobin 14.1 g/dl (12.0-16.0); Imm Gran Abs Auto 0.02 X10*3/uL (0.00-0.03); Imm Gran Pct Auto 0.2 % (0.0-0.4); Lymphocytes Absolute Auto 2.7 X10*3/uL (1.2-4.9); Lymphocytes Percent Auto 32.2 % (20-40); Mean Corpuscular HGB Conc 34.1 g/dl (31.0-35.0); Mean Corpuscular Hemoglobin 29.3 pg (27.0-33.0); Mean Corpuscular Volume 85.9 fL (80.0-98.0); Mean Platelet Volume 8.9 fL (9.4-12.3); Monocytes Absolute Auto 0.6 X10*3/uL (0.1-1.2); Monocytes Percent Auto 6.7 % (2-11); Neutrophils Absolute Auto 4.8 x10*3/uL (2.0-8.3); Neutrophils Percent Auto 58.2 % (45-73); Platelet Count 307 X10*3/uL (160-400); Red Blood Count 4.82 X10*6/uL (4.20-5.50); Red Cell Distribution Width 13.8 % (11.0-16.0); White Blood Count 8.3 X10*3/uL (4.8-10.8)
[2023-08-31 18:51] LABS: TSH reflex Free T4 0.99 uIU/mL (0.32-4.0)
[2023-09-01 09:40] LABS: Bacterial Vaginosis PCR POSITIVE (Negative); Candida Group PCR NOT DETECTED (Not Detect); Candida glab krusei PCR NOT DETECTED (Not Detect); Trichomonas vaginalis PCR NOT DETECTED (Not Detect)
[2023-09-07 03:14] LABS: HPV mRNA E6/E7 rflx Not Detected (Not Detected)
== END 2023-08-31 16:00 | disposition home or self-care (01) ==
LOC: HO.HHCL 15:59
PROVIDERS: Visit Provider General Practice
DX: N95.0 Postmenopausal bleeding (principal)
CPT/HCPCS: 0352U; 36415; 84443; 85025; 87624; 88142

== ENCOUNTER 2023-09-04 09:35 | Outpatient (REF) | payer MEDICAID, SELFPAY ==
--- NOTE | ~2023-09-04 | FL_ITS ---
EXAMINATION: XR FLUOROSCOPY UPPER GI WITH AIR CLINICAL INFORMATION: Reflux COMPARISON: Barium swallow 03/2021 TECHNIQUE: Fluoroscopic air contrast upper GI examination was performed utilizing standard techniques with thin and thick barium and effervescent granules. Numerous spot images were obtained, as well as numerous cine runs. FINDINGS: Pharyngeal and hypopharyngeal swallow appeared normal. No penetration or subglottic aspiration. No cricopharyngeal achalasia. No gross hypopharyngeal mass. Dual and single contrast images of the esophagus demonstrate normal caliber, contour, and mucosal pattern. No evidence of stricture, mass, or ulcerations identified. Esophageal peristalsis was mildly disorganized. No evidence of hiatus hernia identified. No significant gastroesophageal reflux was seen during the course of the examination and on reflux views. (Please note we do not use provocative maneuvers as we feel these are nonphysiologic). Dual contrast and single contrast images of the stomach demonstrated normal contour and mucosal pattern without evidence of mass, ulceration, or other abnormality. Contrast freely passed into the gastric antrum and duodenal bulb without delay. Single and air-contrast images of the duodenal bulb demonstrate no abnormality. The duodenal sweep has a normal appearance, course, and mucosal fold appearance. No malrotation. The imaged proximal jejunum has a normal fold pattern and caliber. FLUOROSCOPY TIME: 3 minutes 3 seconds Number of Spot Images: 8 Number of Cine: 15 DOSE AREA PRODUCT: 2910 uGy-m2 (microgray-meter squared) FL/FL upper GI series IMPRESSION: 1. Mildly disorganized esophageal peristalsis, otherwise unremarkable examination. 2. No evidence of reflux, hiatus hernia, stomach, duodenal, or proximal small bowel abnormality. This procedure was performed by Evangelist Monroy PA-C, and supervised by Dr. Hernandez
== END 2023-09-04 09:36 | disposition home or self-care (01) ==
LOC: HO.XRAY 09:35
PROVIDERS: PCP General Practice; Visit Provider Nurse Practitioner Family
DX: K21.9 Gastro-esophageal reflux disease without esophagitis (principal)
CPT/HCPCS: 74240

== ENCOUNTER → 2023-09-04 09:36 | Outpatient (BNV) | payer MEDICAID, SELFPAY | PROVIDERS: PCP General Practice; Visit Provider Physician Assistant Surgical | DX: K21.9 Gastro-esophageal reflux disease without esophagitis (principal) | CPT/HCPCS: 74246 ==

== ENCOUNTER 2023-09-07 16:26 | Outpatient (REF) | payer MEDICAID, SELFPAY ==
--- NOTE | ~2023-09-07 | US_ITS ---
EXAMINATION: US PELVIS CLINICAL INFORMATION: Postmenopausal bleeding COMPARISON: Pelvic ultrasound 03/01/2018, CT scan abdomen and pelvis 04/30/2019 TECHNIQUE: Ultrasound of the pelvis is performed using both transabdominal and transvaginal transducers along with Doppler. Transvaginal imaging is performed due to inadequate visualization transabdominally. FINDINGS: Uterus: The uterus is anteverted and measures 7.5 x 3.3 x 4.6 cm. No focal fibroid The endometrium is thickened for postmenopausal woman, measuring 0.7 cm. The uterus is smooth in contour and has normal myometrial echogenicity. No visible fibroid. Adnexa: Both ovaries are visualized. There is normal color flow to the adnexa. There is no ovarian torsion. There is no pelvic ascites or fluid collection. Right ovary measures 2.2 x 2.4 x 2.2 cm. Volume 5.9 mL. The right ovary contains a 1.5 x 2.0 x 1.7 cm simple cyst which is consistent with a benign simple cyst in a postmenopausal woman. No follow-up imaging recommended. Left ovary measures 1.7 x 2.3 x 1.8 cm. Volume 3.7 mL. US/US pelvic and transvaginal IMPRESSION: 1. Thickened endometrium for postmenopausal woman. Further evaluation 2. 2.0 cm simple right ovarian cyst. This is consistent with a benign simple cyst in a postmenopausal woman. No follow-up imaging recommended. 3. Normal left ovary.
== END 2023-09-07 16:27 | disposition home or self-care (01) ==
LOC: HO.US 16:26
PROVIDERS: PCP General Practice; Visit Provider General Practice
DX: N95.0 Postmenopausal bleeding (principal)
CPT/HCPCS: 76830; 76856

== ENCOUNTER 2023-09-28 16:09 | Outpatient (REF) | payer MEDICAID, SELFPAY ==
[2023-09-28 17:21] LABS: Bacterial Vaginosis PCR NEGATIVE (Negative); Candida Group PCR NOT DETECTED (Not Detect); Candida glab krusei PCR NOT DETECTED (Not Detect); Trichomonas vaginalis PCR NOT DETECTED (Not Detect)
== END 2023-09-28 16:10 | disposition home or self-care (01) ==
LOC: HO.HHCLNP 16:09
PROVIDERS: Visit Provider Nurse Practitioner
DX: N89.8 Other specified noninflammatory disorders of vagina (principal)
CPT/HCPCS: 0352U

== ENCOUNTER 2023-10-30 09:09 | Day surgery (SDC) | payer MEDICAID, SELFPAY ==
--- NOTE | 2023-10-29 12:46 | HO.ANESPROP2 ---
Documented by User: Yanna Novak NP 10/29/23 12:46 HPI - Anesthesia Eval Consult details Narrative: 53yo F for Upper Endoscopy PMFSH Active Problems Active Problems: All Active Problems Dyspnea on exertion (Acute) Chronic cough (Acute) Family History Family History Mother Cancer Surgical History Surgical History Hx of colonoscopy History of esophagogastroduodenoscopy (EGD) Hx of section Social History Social History Patient Tobacco Use Status: Current everyday Tobacco user Years Smoked: since 19 yrs old Are you DNR?: No Advance Directives: No Advance Directives Information Provided: Yes Nutrition Risks: No Nutritional Risk Meds Allergies Allergy/AdvReac Type Severity Reaction Status Date / Time Penicillins Allergy Unknown Verified 07/06/23 09:20 Home Medications ?Medication ?Instructions ?Recorded ?Confirmed ?Last Taken ?Type trazodone 50 mg tablet 50 mg PO BEDTIME PRN 05/08/23 Unknown History Assessment and Plan Assessment Anesthesia Assessment: Chart Reviewed Documented by User: Carmen Albrecht MD 10/30/23 10:30 PMFSH Family History Family History Mother Cancer Family history of problems with anesthesia: No Surgical History Surgical History Hx of colonoscopy History of esophagogastroduodenoscopy (EGD) Hx of section History of Problems with Anesthesia: No Social History Social History Patient Tobacco Use Status: Current everyday Tobacco user Years Smoked: since 19 yrs old Are you DNR?: No Advance Directives: No Advance Directives Information Provided: Yes Nutrition Risks: No Nutritional Risk Meds Allergies Allergy/AdvReac Type Severity Reaction Status Date / Time Penicillins Allergy Unknown Verified 07/06/23 09:20 Home Medications ?Medication ?Instructions ?Recorded ?Confirmed ?Last Taken ?Type trazodone 50 mg tablet 50 mg PO BEDTIME PRN 05/08/23 Unknown History Exam Airway Mallampati Class: II TM Dist: >3cm Neck ROM: Full Heart: rrr Lungs: cta Assessment and Plan Assessment Anesthesia Assessment: Anesthesia Plan Discussed Final Anesthetic Review Family History of Problems with Anesthesia: No History of Problems with Anesthesia: No NPO: Yes ASA Class: II Final Preanesthetic Review: No Changes in Pt Med Stat, Meds/Allgs Chart Reviewed, Consent Obtained/Reviewed and Anes Risks/Benef Reviewed Patient Risk: Low Procedure Risk: Low Anesthetic Plan Anesthetic Plan: MAC: Disposition: Standard PACU
[2023-10-30 06:12] VITALS: BMI 41.9
[2023-10-30 09:22] VITALS: BP 147/65; PULSE 81; RESP 20; TEMP 36.4; O2SAT 97
[2023-10-30] MEDS: Lactated Ringers 1,000 ML 100 ML IVCONT (09:42)
[2023-10-30 09:51] LABS: UPreg QC Valid YES; Urine Pregnancy NEGATIVE (NEGATIVE)
--- NOTE | 2023-10-30 10:29 | MHC.SHP ---
Pre-Procedural Eval Section A - 24 Hr Update-Section A only Date of Service: 10/30/23 Section B - Complete if H&P > 30 days Chief Complaint: Gastro-esophageal reflux disease without esophagit Relevant Family History (Specify if Yes): No Relevant Social History: Tobacco Use Present Medications: see Short Stay Collaborative assessment Medical History: Significant History (gerd) History of Previous Operations: Relevant previous surgery/procedure and date(s) ( History of esophagogastroduodenoscopy (EGD) Hx of section) Allergies: Allergies Allergy/AdvReac Type Severity Reaction Status Date / Time Penicillins Allergy Unknown Verified 07/06/23 09:20 Review of Systems Sugical H&P ROS: Negative: Constitution, Cardiovascular, Respiratory, Neurological, Psychiatric, Hem-Onc, Allergic/Immunologic, Gastrointestinal, Genitourinary, Musculoskeletal, Integumentary, Endocrine and Eyes/Ears/Nose/Throat Exam Surgical H&P Exam: Normal: HEENT, Normal: Heart, Normal: Lungs, Normal: Extremities, Normal: Abdomen, Normal: Skin and Normal: Neurological Plan Diagnosis/Plan: Unchanged I have reviewed the history and physical and performed a pertinent physical examination on my patient. No changes have occurred unless specified. Time Spent With Patient Time: Total time managing care of this patient today ____ minutes.
--- NOTE | 2023-10-30 11:10 | W.PM.OPN ---
Operative Note Operative Note Date of Service: 10/30/23 Narrative: Procedure Description: EGD Indication: epigastric pain Anesthesia: MAC FLEXIBLE TRANSORAL UPPER GASTROINTESTINAL ENDOSCOPY UPPER ENDOSCOPY Consent: Indications for the procedure and potential complications of bleeding, perforation, reaction to medications and missed diagnosis were discussed with the patient and informed consent was obtained. Instrument: Olympus GIF H 190 J mid size upper endoscope Monitoring: Vital signs and clinical assessment, continuous EKG monitoring, Pulse oximetry, Carbon Dioxide monitoring and blood pressure monitoring were done throughout the procedure. Procedure: The patient was placed in the left lateral decubitis position and pre-procedure medications were administered and a bite block was placed. The endoscope was inserted into the mouth and advanced under direct vision to the third part of duodenum. A careful inspection was made as the upper endoscope was withdrawn including a retroflexed examination of the proximal stomach; Findings and interventions are described below. Findings: Larynx:normal Esophagus: GE junction at 38 cm, diaphragm hiatus at 40 cm, consistent with 2 cm sliding hiatal hernia, with schatzki ring noted, bx taken from distal and proximal esophagus Stomach: patchy erythema and scarring . Biopsies were obtained. Grade 2 flap valve on retroflexed examination of the cardia. Duodenum: Normal bulb and descending duodenum, bx taken Intervention: Biopsies as noted above, Impression/Findings: gastritis hiatal hernia schatzki ring PLAN: cont PPI for the moment GERD precautions if H pylori pos then treat
[2023-10-30 11:42] VITALS: BP 117/72; PULSE 91; RESP 16; TEMP 36.3; O2SAT 97
[2023-10-30 11:57] VITALS: BP 149/84; PULSE 101; RESP 16; TEMP 36.3; O2SAT 98
[2023-10-30 12:12] VITALS: BP 124/84; PULSE 72; RESP 16; TEMP 36.3; O2SAT 97
== END 2023-10-30 12:35 | disposition home or self-care (01) ==
PROVIDERS: Anesthesiology; PCP General Practice; Visit Provider Internal Medicine Gastroenterology
PROC: 0DJ08ZZ Inspection of Upper Intestinal Tract, Via Natural or Artificial Opening Endoscopic (ICD-10-PCS; CPT 43235; principal; 2023-10-30 11:00)
DX: K29.70 Gastritis, unspecified, without bleeding (principal); K44.9 Diaphragmatic hernia without obstruction or gangrene; K22.2 Esophageal obstruction; K21.9 Gastro-esophageal reflux disease without esophagitis; F17.210 Nicotine dependence, cigarettes, uncomplicated; Z79.899 Other long term (current) drug therapy
CPT/HCPCS: 43239; 81025; 88305; 88313; 88342; J1596; J2704

== ENCOUNTER → 2023-10-30 09:09 | Outpatient (BNV) | payer MEDICAID, SELFPAY | PROVIDERS: PCP General Practice; Visit Provider Internal Medicine Gastroenterology | DX: K29.70 Gastritis, unspecified, without bleeding (principal); K22.2 Esophageal obstruction | CPT/HCPCS: 43239 ==

== ENCOUNTER 2023-11-15 18:12 | Outpatient (REF) | payer MEDICAID, SELFPAY ==
[2023-11-17 00:48] LABS: HPV mRNA E6/E7 rflx Not Detected (Not Detected)
== END 2023-11-15 18:13 | disposition home or self-care (01) ==
LOC: HO.CHCLNP 18:12
PROVIDERS: Visit Provider Family Medicine
DX: N95.0 Postmenopausal bleeding (principal); Z12.4 Encounter for screening for malignant neoplasm of cervix
CPT/HCPCS: 36415; 87624; 88175

== ENCOUNTER 2023-11-16 09:50 | Outpatient (AMB) | payer MEDICAID, SELFPAY ==
[2023-11-16 09:52] VITALS: BMI 42.7
--- NOTE | 2023-11-16 09:52 | MHC.OFFVIS ---
Vital Signs 11/16/23 09:52 Height 5 ft 1 in Weight 226 lb BMI 42.7 Intake Visit Reasons: f/u EGD Intake Note: This patient presents for a follow-up assessment status post EGD. Pt c/o; reports no complaints. 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 Continue Nexium. Will add famotidine at bedtime staying upright for minimum 3 hours after meals discussed with patient. Patient reports epigastric burning, denies chest pain or shortness of breath with or without activity. Will send patient for upper GI study and for upper endoscopy to rule out gastritis, esophagitis, duodenitis, gastric or peptic ulcers, H pylori, Yin's. I will see patient after the procedure, sooner on as needed basis. Patient is agreeable to this plan and verbalizes understanding of instructions. She was given the opportunity to ask questions and all questions answered. ? Thank you for allowing me to participate in her care Orders Orders FL upper GI series Today K21.9 Medications New famotidine 40 mg PO BEDTIME 30 tabs 3RF K21.9 UPPER ENDOSCOPY: Findings: Larynx:normal Esophagus: GE junction at 38 cm, diaphragm hiatus at 40 cm, consistent with 2 cm sliding hiatal hernia, with schatzki ring noted, bx taken from distal and proximal esophagus Stomach: patchy erythema and scarring . Biopsies were obtained. Grade 2 flap valve on retroflexed examination of the cardia. Duodenum: Normal bulb and descending duodenum, bx taken Intervention: Biopsies as noted above, Impression/Findings: gastritis hiatal hernia schatzki ring PLAN: cont PPI for the moment GERD precautions if H pylori pos then treat PATHOLOGY: Diagnosis A. Duodenum, biopsy: Duodenal mucosa within normal limits. B. Stomach, biopsy: Antral-type mucosa with moderate chronic inactive inflammation; no Helicobacter organisms seen. C. GE junction, biopsy: - Cardiofundic-type mucosa with mild chronic inactive inflammation; no intestinal metaplasia seen. - Squamous epithelium within normal limits. D. Esophagus, distal, biopsy: Squamous mucosa within normal limits; no inflammation seen. E. Esophagus, proximal, biopsy: Squamous epithelium within normal limits; no inflammation seen TODAY'S VISIT Patient is here today for follow-up and to discuss upper endoscopy results as well as results from upper GI series. Patient denies any ill effects from anesthesia or procedure. Patient reports that she is feeling better. Patient stopped taking Nexium as she is going to go for H pylori. Patient used to take famotidine, however she was also told to stop that as well. Patient admits to have epigastric pain all the time no matter what she eats. Upper GI series discussed with patient as well as endoscopy and biopsy results. Mild chronic inflammation in GE junction and moderate chronic inactive inflammation in her stomach. No H pylori or intestinal dysplasia found. PFSH Surgical History Hx of colonoscopy History of esophagogastroduodenoscopy (EGD) Hx of section Family History Mother Cancer Social History Patient Tobacco Use Status: Current everyday Tobacco user Years Smoked: since 19 yrs old Review of Systems Const Denies weight gain and Denies weight loss ENT Reports no additional complaints, Denies dysphagia and Denies odynophagia Card Reports no additional complaints Resp Reports no additional complaints GI Reports abdominal pain (Epigastric pain), Denies belching, Denies melena, Denies bloating, Denies change in bowel habits, Denies dysphagia, Denies excessive flatus, Denies dyspepsia, Denies heartburn, Denies diarrhea, Denies loose stools, Denies nausea, Denies odynophagia and Denies vomiting Reports no additional complaints Musc Reports no additional complaints Neuro Reports no additional complaints Psych Reports no additional complaints Endo Reports no additional complaints Physical Exam Vital Signs: BMI result Body Mass Index 42.7 Const General: healthy appearing and no acute distress Nutritional Appearance: obese Orientation/consciousness: patient oriented x3 Resp Effort & Inspection: normal respiratory effort, able to speak in complete sentences, no tracheal deviation and symmetric chest movement Auscultation: clear to auscultation bilaterally Cardio Rate: regular rate GI Inspection: Yes normal to inspection, No distended and Yes obesity Palpation (GI): Soft to palpation, not firm, nontender and No hepatosplenomegaly present Auscultation: normal bowel sounds General: Yes no CVA tenderness Back/Spine/Pelvis Back: no CVA tenderness Skin General skin exam: elasticity normal, turgor normal and dry skin Neuro General: patient oriented x3 Psych Appearance: grossly normal Mental Status: mental status grossly normal Results Reviewed Results Reviewed: UPPER GI SERIES IMPRESSION: 1. Mildly disorganized esophageal peristalsis, otherwise unremarkable examination. 2. No evidence of reflux, hiatus hernia, stomach, duodenal, or proximal small bowel abnormality. Assessment & Plan Assessment & Plan (1) GERD (gastroesophageal reflux disease): Code(s): K21.9 - Gastro-esophageal reflux disease without esophagitis Qualifiers: Esophagitis presence: without esophagitis Qualified Code(s): K21.9 - Gastro-esophageal reflux disease without esophagitis (2) Postprandial epigastric pain: Code(s): R10.13 - Epigastric pain (3) IBS (irritable bowel syndrome): Code(s): K58.9 - Irritable bowel syndrome without diarrhea Qualifiers: Irritable bowel syndrome type: without diarrhea Qualified Code(s): K58.9 - Irritable bowel syndrome without diarrhea (4) Abdominal bloating: Code(s): R14.0 - Abdominal distension (gaseous) Plan Patient has appointment for H pylori breath test on 12th of this month. She is complaining of epigastric pain postprandially, patient may take famotidine for now, stop famotidine 24-48 hours before testing and NPO 1 hour before breath test. Patient denies any nausea or vomiting. She states that she is moving her bowels well without any issues. Patient will follow-up in the office in 3 months. Will call patient if H pylori positive and will treat empirically. Patient is agreeable to current plan of care and verbalizes understanding of instructions. She was given the opportunity to ask questions and all questions answered. Thank you for allowing me to participate in her care Medications: Refilled famotidine 40 mg PO BEDTIME 30 tabs 3RF K21.9 - Gastro-esophageal reflux disease without esophagitis Coding Level of Care Code Est Pt Level 4 (73471) Diagnoses Gastroesophageal reflux disease without esophagitis K21.9 Esophagitis presence: without esophagitis Postprandial epigastric pain R10.13 Irritable bowel syndrome without diarrhea K58.9 Irritable bowel syndrome type: without diarrhea Abdominal bloating R14.0 Time Spent (min) 35 Comment 20 minutes spent with patient and additional 15 minutes spent reviewing her records
== END 2023-11-16 10:28 | disposition home or self-care (01) ==
PROVIDERS: PCP General Practice; Visit Provider Nurse Practitioner Family
DX: K21.9 Gastro-esophageal reflux disease without esophagitis (principal); R10.13 Epigastric pain; K58.9 Irritable bowel syndrome, unspecified; R14.0 Abdominal distension (gaseous)
CPT/HCPCS: 99214

== ENCOUNTER → 2023-11-16 09:50 | Outpatient (BNVA) | payer MEDICAID, SELFPAY | PROVIDERS: PCP General Practice; Visit Provider Nurse Practitioner Family | DX: K21.9 Gastro-esophageal reflux disease without esophagitis (principal); K58.9 Irritable bowel syndrome, unspecified; R10.13 Epigastric pain; R14.0 Abdominal distension (gaseous) | CPT/HCPCS: 99212 ==

== ENCOUNTER 2023-11-26 09:03 | Outpatient (AMB) | payer MEDICAID, SELFPAY ==
--- NOTE | 2023-11-26 09:17 | AM.OFFVISNUR ---
Intake Visit Reasons: H PYLORI Allergies Penicillins Allergy (Verified 11/16/23 09:55) Unknown Nursing Note Patient presents for collection of H Pylori breath test. Patient has been fasting for 1 hour (nothing to eat, drink, no chewing gum or smoking) has not taken any antacid medication for at least 2 weeks and has no allergies to artificial sweeteners.?? Assessment & Plan Assessment & Plan (1) Chronic cough: Code(s): R05 - Cough Category: Medical Plan Patient presents for collection of H Pylori breath test. Patient has been fasting for 1 hour (nothing to eat, drink, no chewing gum or smoking) has not taken any antacid medication for at least 2 weeks and has no allergies to artificial sweeteners.???This test checks for an overgrowth of bacteria in your stomach. We all have bacteria but some may have more than others. It is treatable. if the test comes back negative there is nothing else to do. If the test result is positive we will treat you with 2 antibiotics and a medication to decrease the acid in your stomach (PPI) for 2 weeks. Two weeks after you have completed the treatment we will retest you to make sure the overgrowth has resolved. Orders: Orders H Pylori Breath Test Today Patient Instructions: Process for specimen collection and reason for testing was explained to the patient. Specimen collection. Patient instructed to take a deep breath and then exhale into the blue bag, filling it up as much as possible. Patient instructed to drink a mixture of water and the artificial sweetener with a straw. A 15 minute wait period was observed. Patient instructed to take a deep breath and then exhale into the pink bag, filling it up as much as possible.??
== END 2023-11-26 09:37 | disposition home or self-care (01) ==
PROVIDERS: PCP General Practice; Visit Provider Internal Medicine Gastroenterology
DX: R05.9 Cough, unspecified (principal)

== ENCOUNTER → 2023-11-26 09:03 | Outpatient (BNVA) | payer MEDICAID, SELFPAY | PROVIDERS: PCP General Practice; Visit Provider Internal Medicine Gastroenterology | DX: Z11.0 Encounter for screening for intestinal infectious diseases (principal); R05.9 Cough, unspecified | CPT/HCPCS: 99211 ==

== ENCOUNTER 2023-11-26 16:53 | Outpatient (REF) | payer MEDICAID, SELFPAY ==
[2023-11-29 09:49] LABS: H Pylori Breath Test Positive (Negative)
== END 2023-11-26 16:54 | disposition home or self-care (01) ==
LOC: HO.LNP 16:53
PROVIDERS: Visit Provider Internal Medicine Gastroenterology
DX: Z11.0 Encounter for screening for intestinal infectious diseases (principal)
CPT/HCPCS: 83013

== ENCOUNTER 2024-01-11 11:35 | Outpatient (REF) | payer MEDICAID, SELFPAY ==
--- NOTE | ~2024-01-11 | MM_ITS ---
EXAMINATION: MM SCREENING DIGITAL BREAST TOMOSYNTHESIS, BILATERAL CLINICAL INFORMATION: Screening. Asymptomatic. COMPARISON: Mammography: Comparison is made with available priors TECHNIQUE: Digital breast mammography with tomosynthesis is performed in both the craniocaudal and mediolateral oblique views along with computer-aided detection (CAD). FINDINGS: There are scattered areas of fibroglandular density (ACR BI-RADS breast composition Category b). There are no significant masses, abnormal calcifications, or other abnormalities. MM/MM tomosynthesis screening BI IMPRESSION: No mammographic evidence of malignancy. ASSESSMENT: BI-RADS BI-RADS 1 - Negative RECOMMENDATION: Routine annual mammography screening. 1 year F/U This examination should not preclude the clinical evaluation of a suspicious palpable abnormality. This patient's information was entered into a reminder system with a target due date for their next mammogram. Electronically signed by: Kristie Mauricio DO 01/23/2024 03:16 PM EDT
== END 2024-01-11 11:36 | disposition home or self-care (01) ==
LOC: HO.MAMMO 11:35
PROVIDERS: PCP General Practice; Visit Provider General Practice
DX: Z12.31 Encounter for screening mammogram for malignant neoplasm of breast (principal)
CPT/HCPCS: 77063; 77067

== ENCOUNTER → 2024-01-11 12:00 | Outpatient (BNV) | payer MEDICAID, SELFPAY | PROVIDERS: PCP General Practice; Visit Provider Internal Medicine | DX: Z12.31 Encounter for screening mammogram for malignant neoplasm of breast (principal) | CPT/HCPCS: 77063; 77067 ==

== ENCOUNTER 2024-02-18 09:29 | Outpatient (AMB) | payer MEDICAID, SELFPAY ==
[2024-02-18 09:44] VITALS: BP 112/70; PULSE 78; O2SAT 97; BMI 44.4
--- NOTE | 2024-02-18 09:44 | A.OFFVIS_ITS ---
Vital Signs 02/18/24 09:44 Height 5 ft 1 in Weight 235 lb BMI 44.4 BP 112/70 Blood Pressure Location Lt brachial Position Sitting Pulse 78 Pulse Source Pulse Oximeter Pulse Oximetry (%) 97 Oxygen Delivery Method Room Air Intake Visit Reasons: 3 month follow up Intake Note: PRESCRIPTIONS LAST GENERATED famotidine 40 mg tablet?40 mg PO BEDTIME 30 tabs 3RF ErikaSander mcphersona D 11/16/23 10:15 (Transmitted) PRN ^^ Relevant Flags or Indicators ? Requires Cnc Applications Engineer? Britt Violette presents in office today for a scheduled 3 mos FUV. CC; No recent labs, diagnostics placed. Relevant GI Sx as reported per pt? Pt reports having L sided chest and L arm pain. Pt states that this has been present for weeks/months. Pt has been trying to avoid trigger foods and has been doing a little better. ? Hx of any recent surgeries? None Cnc Applications Engineer Required: No Allergies Penicillins Allergy (Verified 11/16/23 09:55) Unknown HPI HPI 3 month follow up: Details: LAST VISIT: GERD (gastroesophageal reflux disease) Postprandial epigastric pain IBS (irritable bowel syndrome) Abdominal bloating Plan Patient has appointment for H pylori breath test on 12th of this month. She is complaining of epigastric pain postprandially, patient may take famotidine for now, stop famotidine 24-48 hours before testing and NPO 1 hour before breath test. Patient denies any nausea or vomiting. She states that she is moving her bowels well without any issues. Patient will follow-up in the office in 3 months. Will call patient if H pylori positive and will treat empirically. Patient is agreeable to current plan of care and verbalizes understanding of instructions. She was given the opportunity to ask questions and all questions answered. ? Thank you for allowing me to participate in her care Medications Refilled famotidine 40 mg PO BEDTIME 30 tabs 3RF K21.9 TODAY'S VISIT Patient is here today for follow-up. Since last visit patient was diagnosed with H pylori via breath test. Patient try few days of antibiotics, however she states that she was unable to take them all together because they were causing her severe epigastric pain, diarrhea and vomiting. Patient states that she took it for about a week or so. Currently patient is taking Nexium and famotidine and reports that she is feeling better. Occasional postprandial epigastric pain depending on what she eats. Patient denies any nausea or vomiting. Denies any epigastric pain. Patient reports pain in her left chest and also nonradiating pain in her left arm. Patient thinks that maybe is because of where she works she uses a lot of her body. Patient denies any shortness of breath with or wi thout exertion. States that she is able to climb a set of stairs without feeling short of breath. Patient denies melena, hematochezia, unintentional weight loss or ribbon like stools. Patient denies any dyspepsia, dysphagia or odynophagia. PFSH Surgical History Hx of colonoscopy History of esophagogastroduodenoscopy (EGD) Hx of section Family History Mother Cancer Social History Patient Tobacco Use Status: Current everyday Tobacco user Years Smoked: since 19 yrs old Review of Systems Const Denies weight gain and Denies weight loss ENT Reports no additional complaints, Denies dysphagia and Denies odynophagia Card Reports no additional complaints Resp Reports no additional complaints GI Denies abdominal pain, Denies belching, Denies melena, Reports bloating, Denies change in bowel habits, Denies dysphagia, Denies excessive flatus, Denies dyspepsia, Reports heartburn, Denies diarrhea, Reports loose stools (occasional), Denies nausea, Denies odynophagia and Denies vomiting Reports no additional complaints Musc Reports no additional complaints Neuro Reports no additional complaints Psych Reports no additional complaints Endo Reports no additional complaints Physical Exam Vital Signs: Last Vital Signs Pulse 78 02/18/24 09:44 BP 112/70 02/18/24 09:44 Pulse Ox 97 02/18/24 09:44 Oxygen Delivery Method Room Air 02/18/24 09:44 BMI result Body Mass Index 44.4 Const General: healthy appearing and no acute distress Nutritional Appearance: obese Orientation/consciousness: patient oriented x3 Resp Effort & Inspection: normal respiratory effort, able to speak in complete sentences, no tracheal deviation and symmetric chest movement Auscultation: clear to auscultation bilaterally Cardio Rate: regular rate GI Inspection: Yes normal to inspection, No distended and Yes obesity Palpation (GI): Soft to palpation, not firm, nontender and No hepatosplenomegaly present Auscultation: normal bowel sounds General: Yes no CVA tenderness Back/Spine/Pelvis Back: no CVA tenderness Skin General skin exam: elasticity normal, turgor normal and dry skin Neuro General: patient oriented x3 Psych Appearance: grossly normal Mental Status: mental status grossly normal Assessment & Plan Assessment & Plan (1) GERD (gastroesophageal reflux disease): Code(s): K21.9 - Gastro-esophageal reflux disease without esophagitis Qualifiers: Esophagitis presence: esophagitis presence not specified Qualified Code(s): K21.9 - Gastro-esophageal reflux disease without esophagitis (2) Postprandial epigastric pain: Code(s): R10.13 - Epigastric pain (3) IBS (irritable bowel syndrome): Code(s): K58.9 - Irritable bowel syndrome, unspecified Qualifiers: Irritable bowel syndrome type: without diarrhea Qualified Code(s): K58.9 - Irritable bowel syndrome, unspecified (4) Abdominal bloating: Code(s): R14.0 - Abdominal distension (gaseous) Plan Continue Nexium and famotidine. Avoid dietary triggers and late night snacking. Patient reports that she has no symptoms and would like not to take antibiotic therapy. Patient will be retested again in the next few months. Staying upright for minimum 3 hours after meals discussed with patient. Patient reports left chest and left arm pain nonradiating. Given her age cardiology referral made. Patient denies any shortness of breath or chest pain with exertion. Able to climb stairs without any issues. Patient will follow-up in 6 months, sooner on as needed basis. She is agreeable to this plan and verbalizes understanding of instructions. She was given the opportunity to ask questions and all questions answered. Thank you for allowing me to participate in her care Orders: Referrals Cardiology Referral R07.9 - Chest pain, unspecified Coding Level of Care Code Est Pt Level 3 (27016) Diagnoses Gastroesophageal reflux disease, unspecified whether esophagitis present K21.9 Esophagitis presence: esophagitis presence not specified Postprandial epigastric pain R10.13 Irritable bowel syndrome without diarrhea K58.9 Irritable bowel syndrome type: without diarrhea Abdominal bloating R14.0 Time Spent (min) 30 Comment 20 minutes spent with patient and additional 10 minutes spent reviewing her records
== END 2024-02-18 10:22 | disposition home or self-care (01) ==
LOC: HO.HGI 09:29
PROVIDERS: PCP General Practice; Visit Provider Nurse Practitioner Family
DX: K21.9 Gastro-esophageal reflux disease without esophagitis (principal); R10.13 Epigastric pain; K58.9 Irritable bowel syndrome, unspecified; R14.0 Abdominal distension (gaseous)
CPT/HCPCS: 99213

== ENCOUNTER → 2024-02-18 09:29 | Outpatient (BNVA) | payer MEDICAID, SELFPAY | PROVIDERS: PCP General Practice; Visit Provider Nurse Practitioner Family | DX: K21.9 Gastro-esophageal reflux disease without esophagitis (principal); K58.9 Irritable bowel syndrome, unspecified; R10.13 Epigastric pain; R14.0 Abdominal distension (gaseous); R07.9 Chest pain, unspecified | CPT/HCPCS: 99212 ==

== ENCOUNTER 2024-05-16 09:32 | Outpatient (REF) | payer MEDICAID, SELFPAY ==
--- NOTE | ~2024-05-16 | XR_ITS ---
EXAMINATION: XR FOOT, LEFT CLINICAL INFORMATION: 3 days of severe left foot pain after a fall COMPARISON: None available. TECHNIQUE: AP, lateral, and oblique views of the left foot. FINDINGS: No fracture, dislocation, or suspicious bone lesion. No malalignment. Preserved plantar arch. There is a moderate-sized plantar and small dorsal calcaneal spur. Mild arthritic changes in the intertarsal joints. No soft tissue abnormalities. XR/XR foot LT min 3V IMPRESSION: No acute findings left foot. Electronically signed by: Rohith Hernandez MD 05/16/2024 09:48 AM [facility]
--- OUTSIDE RECORDS SUMMARY | 2024-05-16 10:09 | XMS_ITS | Encounter Summary ---
Author Organization [employer] Address [address] [place] [address] 7 [place] [address] Care Team Providers Care Mechanical Press Operator Name Role Phone Maggi Sparrow MD Primary Care Provider [phone] Reason for Visit * Reason Onset Date Comments Med Refill 07/17/2023 Encounter Details Date Type Department Care Team ([facility] st Contact Info) Description 07/17/2023 Refill [facility] MEDICINE [address] [place] [address] Maggi Sparrow MD [address] [place] [address] Primary insomnia Social History Tobacco Use Types Packs/Day Years Used Date Smoking Tobacco: Every Day Cigarettes Smokeless Tobacco: Never Alcohol Use Standard Drinks/Week Comments Never 0 (1 standard drink = 0.6 oz pur e alcohol) Depression Answer Date Recorded Patient Health Questionnaire-9 Score 20 10/10/2022 Housing Stability Answer Date Recorded What is your housing situation today? I have fannie brownlee 01/31/[address] you li ve. Do you have problems with any of the following? I am not sure 01/31/2023 Food Insecurity Answer Date Recorded Within the past 12 months, y ou worried that your food would run out before you got money to buy more: Never True 01/31/2023 Within the past 12 months,th e food you bought just didn't last and you didn't have enough money to get more: Never True Transportation Answer Date Recorded In the past 12 months, has l ack of transportation kept you from medical appts, meetings, work or from getting things needed for daily living? No 01/31/2023 Utilities Answer Date Recorded In the past 12 months, has t he electric, gas, oil or water company threatened to shut off services in your home? No 01/31/2023 Depression Answer Date Recorded Patient Health Questionnaire-2 Score 6 10/10/2022 Comments Unknown Sex and Gender Information Value Date Recorded Sex Assigned at Female 02/13/2022 10:29 AM EDT Legal Sex Female 10:29 AM EDT Gender Identity Female 02/13/2022 10:29 AM EDT Sexual Orientation Straight 02/13/2022 10 :29 AM EDT documented as of this encounter Plan of Treatment Not on file documented as of this encounter Visit Diagnoses Diagnosis Primary insomnia Persistent disorder of initiating or maintaining sleep documented in this encounter Additional Health Concerns Assessment Noted Time PHQ-9 Depression Total Score: 20 023 1:04 PM EDT documented as of this encounter Care Teams Mechanical Press Operator Relationship Specialty Start Date End Date Maggi Sparrow MD [address] [place] [id number] PCP - General Family Medicine 02/26/20 documented as of this encounter
--- OUTSIDE RECORDS SUMMARY | 2024-05-16 10:09 | XMS_ITS | Encounter Summary ---
Author Organization [employer] Address [address] [place] [address] [address] [place] [address] Care Team Providers Care Mathematics Improvement Teacher Name Role Phone Maggi Sparrow MD Primary Care Provider [phone] Reason for Referral * Consultation (Routine) - Pending Review Specialty Diagnoses / Procedures Referred By Tegan t Referred To Contact Obstetrics and Gynecology Diagnoses Postmenopausal bleeding Maggi Sparrow MD [address] [place] [phone] Phone: tel: fax: Referral ID Status Reason Start Date Expiration Date Visits Requested Visits Authorized [id number] Pending Review Specialty Services Required 09/23/2023 09/22/2024 1 1 Encounter Details Date Type Department Care Team ([facility] st Contact Info) Description 09/23/2023 Orders Only [facility] MEDICINE [address] [place] [phone] Maggi Sparrow MD [address] [place], [place] [phone] Postmenopausal bleeding (Primary Dx) Social History Tobacco Use Types Packs/Day Years Used Date Smoking Tobacco: Every Day Cigarettes Smokeless Tobacco: Never Alcohol Use Standard Drinks/Week Comments Never 0 (1 standard drink = 0.6 oz pur e alcohol) Depression Answer Date Recorded Patient Health Questionnaire-9 Score 0 08/31/2023 Patient Health Questionnaire-9 Score 0 08/31/2023 Last PHQ-9: Questionnaire Data Not on file 0 08/31/2023 Housing Stability Answer Date Recorded What is [...] Answer Date Recorded Patient Health Questionnaire-2 Score 0 08/31/2023 Comments Unknown Sex and Gender Information Value Date Recorded Sex Assigned at Female 02/13/2022 10:29 AM EDT Legal Sex Female 10:29 AM EDT Gender Identity Female 02/13/2022 10:29 AM EDT Sexual Orientation Straight 02/13/2022 10 :29 AM EDT documented as of this encounter Plan of Treatment Scheduled Referrals Name Type Priority Associated Diagnoses Order Schedule Referral to Obstetrics / Gynecology Outpatient Referral Routine Postmenopausal bleeding Expected: 09/23/2023 (Approximate), Expires: 09/22/2024 documented as of this encounter Visit Diagnoses Diagnosis Postmenopausal bleeding- Primary documented in this encounter Additional Health Concerns Assessment Noted Time PHQ-9 Depression Total Score: 0 08/31/19 24 3:19 PM EDT documented as of this encounter Care Teams Mathematics Improvement Teacher Relationship Specialty Start Date End Date Maggi Sparrow MD [address] [place] [phone] PCP - General Family Medicine 02/26/20 documented as of this encounter
--- OUTSIDE RECORDS SUMMARY | 2024-05-16 10:09 | XMS_ITS | Encounter Summary ---
Author Organization [employer] Address [address] [place] [address] [address] [place] [address] Care Team Providers Care Continuous Process Coffee Roaster Name Role Phone Maggi Sparrow MD Primary Care Provider [phone] Reason for Visit * Reason Onset Date Comments Appointment 10/11/2022 Encounter Details Date Type Department Care Team ([facility] st Contact Info) Description 10/11/2022 Telephone [facility] [address] [place] [address] Beny Bliss, DMD [address] [place] [address] Appointment Social History Tobacco Use Types Packs/Day Years Used Date Smoking Tobacco: Every Day Cigarettes Smokeless Tobacco: Never Alcohol Use Standard Drinks/Week Comments Never 0 (1 standard drink = 0.6 oz pur e alcohol) Depression Answer Date Recorded Patient Health Questionnaire-9 Score 20 10/10/2022 Depression Answer Date Recorded Patient Health Questionnaire-2 Score 6 10/10/2022 Comments Unknown Sex and Gender Information Value Date Recorded Sex Assigned at Female 02/13/2022 10:29 AM EDT Legal Sex Female 10:29 AM EDT Gender Identity Female 02/13/2022 10:29 AM EDT Sexual Orientation Straight 02/13/2022 10 :29 AM EDT COVID-19 Exposure Response Date Recorded In the last 10 days, have yo u been in contact with someone who was confirmed or suspected to have Coronavirus/COVID-19? No / Unsure 10/10/2022 10:54 AM EDT documented as of this encounter Miscellaneous Notes * Telephone Encounter - Jessica Davis - 10/11/2022 3:29 PM EDT Hi, thank you patient was informed * Telephone Encounter - Jessica Davis - 10/11/2022 11:19 AM EDT Violette Camacho 1970 Patient called in and stated that she was seen on 10/05/22 for Exo andwas given ibuprofen 600 and stated she can't take ibuprofen and would like know if something else can be sent to pharmacy please advise. documented in this encounter Plan of Treatment Not on file documented as of this encounter Visit Diagnoses Not on filedocumented in this encounter Additional Health Concerns Assessment Noted Time PHQ-9 Depression Total Score: 20 023 1:04 PM EDT documented as of this encounter Care Teams Continuous Process Coffee Roaster Relationship Specialty Start Date End Date Maggi Sparrow MD [address] [place] [address] PCP - General Family Medicine 02/26/20 documented as of this encounter
--- OUTSIDE RECORDS SUMMARY | 2024-05-16 10:09 | XMS_ITS | Encounter Summary ---
Author Organization [employer] Address [address] [facility] [address] [place] [address] Care Team Providers Care Industrial Eng Name Role Phone Maggi Sparrow MD Primary Care Provider [phone] Encounter Details Date Type Department Care Team (Late st Contact Info) Description 10/09/2022 Abstract [facility] [address] [place] [address] eBny Bliss, DMD [address] [place] [address] Social History Tobacco Use Types Packs/Day Years [...] Assessment Noted Time PHQ-9 Depression Total Score: 14 023 11:54 AM EDT documented as of this encounter Care Teams Industrial Eng Relationship Specialty Start Date End Date Maggi Sparrow MD [address] [place] [address] PCP - General Family Medicine 02/26/20 documented as of this encounter
--- OUTSIDE RECORDS SUMMARY | 2024-05-16 10:10 | XMS_ITS | Clinical Summary ---
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 Family Medicine 02/26/20
--- OUTSIDE RECORDS SUMMARY | 2024-05-16 10:10 | XMS_ITS | Encounter Summary ---
Author Organization [employer] Address [address] [place] [address] Care Team Providers Care Speedboat Operator Name Role Phone Maggi Sparrow MD Primary Care Provider [phone] Reason for Visit * Reason Comments Foot Pain Encounter Details Date Type Department Care Team ([facility] Contact Info) Description 05/16/2024 9:00 AM EST Office Visit [facility] [address] [place] [phone] Name, MD Cuate [address] [place] [phone] Left foot pain (Primary Dx) Social History Tobacco Use Types [...] AM EDT documented as of this encounter Last Filed Vital Signs Vital Sign Reading Time Taken Comments Blood Pressure 103/75 05/16/2024 9:00 AM EST Pulse 94 05/16/2024 9:00 AM EST Temperature 36.8 ??C (98.3 ??F) 05/16/2024 9:00 AM ES T Respiratory Rate 19 05/16/2024 9:00 AM EST Oxygen Saturation - - Inhaled Oxygen Concentration - - Weight 110 kg (242 lb 9.6 oz) 05/16/2024 9:00 AM EST Height 157.5 cm (5' 2 ) 05/16/2024 9:00 AM EST Body Mass Index 44.37 05/16/2024 9:00 AM EST documented in this encounter Progress Notes * Cuate Lubin MD - 05/16/2024 9:00 AM EST Subjective Patient ID: Violette Camacho is a 54 y.o. female who presents for Foot Pain. Patient comes complaining of 3 days of severe left foot pain. The patient tells me she had a fall on Sunday. The patient was getting off an [address] truck and did not realize how high it was andshe fell hard on the left foot. The patient is unable to bear weight on the left foot since the fall. She has mild swelling of the left foot. The patient feels most of the pain in the left heel area. Review of Systems Constitutional: Negative for chills and fever. HENT: Negative for sore throat. Respiratory: Negative for cough. Cardiovascular: Negative for chest pain. Musculoskeletal: See HPI Visit Vitals BP 103/75 (BP Location: Left arm, Patient Position: Sitting, BP Cuff Size: Large adult) Pulse 94 Temp 98.3 ??F (36.8 ??C) (Oral) Resp 19 Ht 5' 2 (1.575 m) Wt 242 lb 9.6 oz (110 kg) BMI 44.37 kg/m?? Smoking Status Every Day BSA 2.19 m?? Objective Physical Exam Constitutional: General: She is not in acute distress. Appearance: She is not toxic-appearing. Cardiovascular: Rate and Rhythm: Normal rate and regular rhythm. Pulmonary: Effort: Pulmonary effort is normal. No respiratory distress. Musculoskeletal: Comments: Antalgic gait, mild left foot swelling, severe pain on palpation of the left heel. Assessment/Plan Diagnoses and all orders for this visit: Left foot pain Comments: Patient was evaluated with x-ray of the left foot that was negative for fracture. The patient has alarge left heel spur. I recommended rest, ice, elevation of the foot, course of Celebrex. Come backif not much better by next week. I will contact her if the official reading of X-ray is different than mine. Orders: - XR Foot 3+ Views Left; Future Other orders - celecoxib (CeleBREX) 200 MG capsule; Take 1 capsule (200 mg) by mouth 2 times daily for 20 days. documented in this encounter Plan of Treatment Not on file documented as of this encounter Procedures Procedure Name Priority Date/Time Associated Diagnosis Comments XR FOOT 3+ VIEWS LEFT Routine 05/16/2024 9:32 AM EST Left foot pain documented in this encounter Results * XR Foot 3+ Views Left (05/16/2024 9:32 AM EST) Anatomical Region Laterality Modality Lower Extremities, Foot Left [facility] 05/16/2024 9:32 AM EST Narrative 05/16/2024 9:51 AM EST ?[facility] [facility] ?[address] ?[place] [address] ?XRay Report ? Signed ? Patient: Camacho,Violette V ?MR#: [id number] ?? [id number] ? : 1970 ?Acct:[id number] ? Age/Sex: 54 / F ?ADM Date: 05/16/24 ? Loc: HO.HHCX ? Attending Dr: Cuate Lubin MD ? Ordering Physician: Cuate Lubin MD ?? Date of Service: 05/16/24 ?? Procedure(s): XR foot LT min 3V ?? Accession Number(s): [id number] ? cc: Cuate Lubin MD ? EXAMINATION: [...] DD/ 0932 ? TD/TT: 05/16/24 0944 ? Wheelage Clerk: ? Procedure Note Lance, Carlos Alberto - 05/16/[address] [address] XRay Report Signed Patient: Violette Camacho R#: [id number] : 1970Acct:[id number] Age/Sex: 54 / FADM Date: 05/16/24 Loc: HO.HHCX Attending Dr: Cuate Lubin MD Ordering Physician: Cuate Lubin MD Date of Service: 05/16/24 Procedure(s): XR foot LT min 3V Accession Number(s): [id number] cc: Cuate Lubin MD EXAMINATION: XR FOOT, [...] by: Rohith Hernandez MD 05/16/2024 09:48 AM [facility] Dictated By: Rohith Hernandez MD Signed By: <Electronically signed by Rohith Hernandez MD in OV> 05/16/2448 DD/ 1 TD/TT: 05/16/24943 Wheelage Clerk: Cuate Lubin MD IMG XR PROCEDURES Final Result documented in this encounter Visit Diagnoses Diagnosis Left foot pain- Primary Pain in soft tissues of limb documented in this encounter Additional Health Concerns Assessment Noted Time PHQ-9 Depression Total Score: 0 08/31/19 24 3:19 PM EDT documented as of this encounter Care Teams Speedboat Operator Relationship Specialty Start Date End Date Maggi Sparrow MD [address] [place] [phone] PCP - General Family Medicine 02/26/20 documented as of this encounter
== END 2024-05-16 09:33 | disposition home or self-care (01) ==
LOC: HO.HHCX 09:32
PROVIDERS: Visit Provider Internal Medicine Geriatric Medicine
DX: M79.672 Pain in left foot (principal)
CPT/HCPCS: 73630

== ENCOUNTER → 2024-05-16 09:32 | Outpatient (BNV) | payer MEDICAID, SELFPAY | PROVIDERS: Visit Provider Radiology Diagnostic Radiology | DX: M77.32 Calcaneal spur, left foot (principal) | CPT/HCPCS: 73630 ==

== ENCOUNTER 2024-07-29 13:25 | Outpatient (AMB) | payer MEDICAID, SELFPAY ==
[2024-07-29 13:27] VITALS: BP 120/74; PULSE 77; BMI 47.1
--- NOTE | 2024-07-29 13:27 | A.OFFVIS_ITS ---
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 chest pain Electrical Controls Technician Required: No Allergies Penicillins Allergy (Verified 11/16/23 09:55) Unknown Medication List - Last Reconciled 07/29/24 by Vincent Washington MD cholecalciferol (vitamin D3) (Vitamin D3) 2,000 units PO DAILY esomeprazole magnesium (Nexium) 40 mg PO DAILY famotidine 40 mg PO BEDTIME PRN trazodone 50 mg PO BEDTIME PRN HPI Comments Details: I was consulted to see Violette in cardiology consultation today for precordial chest discomfort. She is a 54-year-old female who has been having precordial chest discomfort but more concerning radiating to left arm which is concerning. She was longstanding history of acid reflux and thinks the pain related to acid reflux but she was unsure. She mostly gets pain at rest but sometimes with exertion. She describes this pain as a dull ache bubble like feeling in his left side of the chest radiating to left arm. Symptoms resolved after few minutes. No associated symptoms of shortness of breath. No lightheadedness, syncope. No orthopnea, PND, leg edema. No prolonged palpitation irregular heartbeat. Risk factors include mild hyperlipidemia and smoking. She denies any strong family history of premature coronary artery disease PFSH Surgical History Hx of colonoscopy History of esophagogastroduodenoscopy (EGD) Hx of section Family History Mother Cancer Social History Patient Tobacco Use Status: Current everyday Tobacco user Years Smoked: since 19 yrs old Review of Systems Const Denies chills, Denies daytime sleepiness, Denies fatigue, Denies fever(s), Denies frequent falls, Denies poor appetite, Denies snoring, Denies stops breathing during sleep, Denies weakness, Denies weight gain and Denies weight loss Eyes Denies loss of vision ENT Denies dizziness and Denies hearing loss Card Denies chest pain, Denies claudication, Denies leg edema, Denies lightheadedness, Denies palpitations, Denies dyspnea, Denies dyspnea on exertion and Denies orthopnea Resp Denies cough, Denies excessive phlegm production, Denies dyspnea, Denies dyspnea on exertion, Denies snoring and Denies wheezing GI Denies abdominal pain, Denies hematochezia, Denies change in bowel habits, Denies nausea and Denies vomiting Denies urinary frequency and Denies dysuria Musc Denies arthralgias, Denies muscle weakness, Denies numbness and Denies other (frequent falls) Skin/Breast Denies nail changes and Denies rash Neuro Denies Abnormal speech present, Denies dizziness, Denies frequent falls, Denies loss of vision, Denies memory loss, Denies numbness and Denies weakness Psych Denies depression and Denies memory loss Endo Denies fatigue and Denies palpitations Arvind/Lymph Reports easy bruising and Reports other (anemia) Aller/Immun Denies wheezing Physical Exam Vital Signs: Last Vital Signs Pulse 77 07/29/24 13:27 BP 120/74 07/29/24 13:27 BMI result Body Mass Index 47.1 Const General: cooperative, comfortable, no acute distress, alert and awake Nutritional Appearance: obese Orientation/consciousness: patient oriented x3 Limitations: no limitations HEENT Head: Yes normocephalic and Yes atraumatic Neck Neck: Yes trachea midline, Yes supple and Yes no JVD Resp Effort & Inspection: normal respiratory effort Auscultation: clear to auscultation bilaterally Cardio Jugular venous distension: no JVD Palpation: normal PMI Rate: regular rate Rhythm: regular rhythm Heart sounds: S1 normal heart sound present, S2 normal heart sound present, no click, no gallops, no murmurs and no rubs GI Auscultation: normal bowel sounds Skin General skin exam: no rashes or lesions noted Neuro General: patient oriented x3 and no focal motor deficits Speech: No Abnormal speech present Extrem General: Yes no clubbing, cyanosis or edema Psych Appearance: grossly normal Office Procedures EKG Details: EKG shows normal sinus rhythm with sinus arrhythmias 53367-[id number], Complete Assessment & Plan Assessment & Plan (1) Atypical chest pain: Code(s): R07.89 - Other chest pain Category: Medical Plan: Atypical precordial chest pain this middle-aged woman with risk factors of obesity, smoking and mild hyperlipidemia. Patient's symptoms are fairly at ypical for myocardial ischemia. Patient will be scheduled for treadmill exercise stress test to evaluate for myocardial ischemia and echocardiogram to evaluate LV systolic and diastolic function to evaluate LVH as well as pulmonary hypertension. These tests will be scheduled in near future. Strongly recommend smoking cessation for her. Continue participate in regular physical activity and weight loss program should overall help her metabolic risk factors. She understands agrees. Follow up in the clinic after above-mentioned test. Thank you for allowing me to partake in her care Orders: Orders CA stress test Today Vincent Washington MD R07.89 - Other chest pain CA echo transthoracic complete Today Vincent Washingtno MD R07.89 - Other chest pain Medications: Changed From famotidine 40 mg PO BEDTIME 30 tabs 3RF K21.9 - Gastro-esophageal reflux disease without esophagitis To famotidine 40 mg PO BEDTIME PRN K21.9 - Gastro-esophageal reflux disease without esophagitis CEDRICK De La Cruz- Coding Level of Care Code New Pt Level 4 (64529) Complex EM visit Add On G2211 Diagnoses Atypical chest pain R07.89 CPT Codes EKG - CPT: 56027-[id number], Complete ([id number])
== END 2024-07-29 14:09 | disposition home or self-care (01) ==
LOC: HO.HCS 13:25
PROVIDERS: PCP General Practice; Visit Provider Internal Medicine Cardiovascular Disease
DX: R07.89 Other chest pain (principal)
CPT/HCPCS: 93010; 99204

== ENCOUNTER → 2024-07-29 13:25 | Outpatient (BNVA) | payer MEDICAID, SELFPAY | PROVIDERS: PCP General Practice; Visit Provider Internal Medicine Cardiovascular Disease | DX: R07.89 Other chest pain (principal); K21.9 Gastro-esophageal reflux disease without esophagitis | CPT/HCPCS: 93005; 99202 ==

== ENCOUNTER 2024-08-11 10:32 | Outpatient (AMB) | payer MEDICAID, SELFPAY ==
--- NOTE | 2024-08-11 10:35 | MHC.OFFVIS ---
Vital Signs 08/11/24 10:41 Height 5 ft 1 in Weight 252 lb 3.341 oz BMI 47.6 BP 116/76 Blood Pressure Location Lt brachial Position Sitting Pulse 84 Pulse Source Pulse Oximeter Pulse Oximetry (%) 96 Oxygen Delivery Method Room Air Intake Visit Reasons: 6 mos FUV. Intake Note: ESTABLISHED PATIENT for GERD + IBS mgmt. Chief Complaint; C/O occasional GERD episodes but reports that the nexium has been quite helpful in controlling sx. No additional concerns at this time. Heavy Equipment Service Technician Required: No Accompanied by: Self / Same As Patient Allergies Penicillins Allergy (Verified 11/16/23 09:55) Unknown HPI HPI 6 mos FUV.: Details: LAST VISIT: GERD (gastroesophageal reflux disease) Postprandial epigastric pain IBS (irritable bowel syndrome) Abdominal bloating Plan Continue Nexium and famotidine. Avoid dietary triggers and late night snacking. Patient reports that she has no symptoms and would like not to take antibiotic therapy. Patient will be retested again in the next few months. Staying upright for minimum 3 hours after meals discussed with patient. Patient reports left chest and left arm pain nonradiating. Given her age cardiology referral made. Patient denies any shortness of breath or chest pain with exertion. Able to climb stairs without any issues. Patient will follow-up in 6 months, sooner on as needed basis. She is agreeable to this plan and verbalizes understanding of instructions. She was given the opportunity to ask questions and all questions answered. ? Thank you for allowing me to participate in her care Orders Referrals Cardiology Referral R07.9 TODAY'S VISIT Patient is here today for follow-up. Patient reports that she has been feeling better in her acid reflux suppressed for the most part. She still experiences occasional left chest pain, however denies having acid reflux when she has the chest pain. Patient is taking famotidine at bedtime only as needed maybe once or twice a week. Patient denies any nausea or vomiting. Denies any dyspepsia, dysphagia or odynophagia. Reports frequent bowel movements sometimes she will have a 1 bowel movement a day and other days she will 3-4 bowel movements a day. Occasionally there are loose. Mostly happens after eating. Patient denies melena, hematochezia. Patient reports that she does not eat too many vegetables or fruits. Does not take zrer-lys-cjscxrm fiber supplements. Patient reports abdominal bloating quite often. Denies any abdominal pain or discomfort. Occasional cramping with urge to have a bowel movement. PFSH Surgical History Hx of colonoscopy History of esophagogastroduodenoscopy (EGD) Hx of section Family History Mother Cancer Social History Patient Tobacco Use Status: Current everyday Tobacco user Years Smoked: since 19 yrs old Review of Systems Const Denies weight gain and Denies weight loss ENT Reports no additional complaints, Denies dysphagia and Denies odynophagia Card Reports no additional complaints Resp Reports no additional complaints GI Denies abdominal pain, Denies belching, Denies melena, Reports bloating, Denies change in bowel habits, Denies dysphagia, Denies excessive flatus, Denies dyspepsia, Reports heartburn, Denies diarrhea, Reports loose stools (occasional), Denies nausea, Denies odynophagia and Denies vomiting Reports no additional complaints Musc Reports no additional complaints Neuro Reports no additional complaints Psych Reports no additional complaints Endo Reports no additional complaints Physical Exam Vital Signs: Last Vital Signs Pulse 84 08/11/24 10:41 BP 116/76 08/11/24 10:41 Pulse Ox 96 08/11/24 10:41 Oxygen Delivery Method Room Air 08/11/24 10:41 BMI result Body Mass Index 47.6 Const General: healthy appearing and no acute distress Nutritional Appearance: obese Orientation/consciousness: patient oriented x3 Resp Effort & Inspection: normal respiratory effort, able to speak in complete sentences, no tracheal deviation and symmetric chest movement Auscultation: clear to auscultation bilaterally Cardio Rate: regular rate GI Inspection: Yes normal to inspection, No distended and Yes obesity Palpation (GI): Soft to palpation, not firm, nontender and No hepatosplenomegaly present Auscultation: normal bowel sounds General: Yes no CVA tenderness Back/Spine/Pelvis Back: no CVA tenderness Skin General skin exam: elasticity normal, turgor normal and dry skin Neuro General: patient oriented x3 Psych Appearance: grossly normal Mental Status: mental status grossly normal Assessment & Plan Assessment & Plan (1) GERD (gastroesophageal reflux disease): Code(s): K21.9 - Gastro-esophageal reflux disease without esophagitis Qualifiers: Esophagitis presence: without esophagitis Qualified Code(s): K21.9 - Gastro-esophageal reflux disease without esophagitis (2) Postprandial epigastric pain: Code(s): R10.13 - Epigastric pain (3) IBS (irritable bowel syndrome): Code(s): K58.9 - Irritable bowel syndrome, unspecified Qualifiers: Irritable bowel syndrome type: with both diarrhea and constipation Qualified Code(s): K58.2 - Mixed irritable bowel syndrome (4) Abdominal bloating: Code(s): R14.0 - Abdominal distension (gaseous) Plan Patient will continue current regimen with PPI and H2 davon. Avoid dietary triggers and late night snacking. Staying upright for minimal 3 hours after meals discussed with patient. Patient reports that she does not eat vegetables or foods as she has been having weird reaction like burning in her throat after eating banana, strawberries or raspberries. Will send a script for Citrucel to help her bulk stools. Increase fluid intake and activity to promote better bowel motility. Patient reports postprandial abdominal bloating. Low FODMAP diet discussed with patient. List of food recommended as well as list of food to avoid given to patient. Patient will follow-up in 4 months, sooner on as needed basis. She is agreeable to this plan and verbalizes understanding of instructions. She was given the opportunity to ask questions and all questions answered. Thank you for allowing me to participate in her care Medications: New methylcellulose (laxative) (Citrucel) 500 mg PO DAILY 60 tabs 2RF Coding Level of Care Code Est Pt Level 4 (63133) Complex EM visit Add On G2211 Diagnoses Gastroesophageal reflux disease without esophagitis K21.9 Esophagitis presence: without esophagitis Postprandial epigastric pain R10.13 Irritable bowel syndrome with both constipation and diarrhea K58.2 Irritable bowel syndrome type: with both diarrhea and constipation Abdominal bloating R14.0 Time Spent (min) 35 Comment 25 minutes spent with patient and additional 10 minutes spent reviewing her records
[2024-08-11 10:41] VITALS: BP 116/76; PULSE 84; O2SAT 96; BMI 47.6
--- OUTSIDE RECORDS SUMMARY | 2024-08-11 12:25 | XMS_ITS | Clinical Summary ---
Author Organization [employer] Address [address] [facility] 7t [place] [address] Care Team Providers Care Product Manager Financial Services Name Role Phone Maggi Sparrow MD Primary Care Provider [phone] Allergies Active Allergy Reactions Criticality Noted Date [...] 18 g 11 4 11/12/19 25 Active Spacer/Aero-Holdin g Chambers (AeroChamber Holding Chamber) device 1 each 1 (one) time if needed (Use with albuterol inhaler as instructed) for up to 1 dose. 1 each 4 Active traZODone (Desyrel) 50 MG tabletIndications: Primary insomnia TAKE 1 TABLET BY MOUTH AT [...] DAYS 4 Active cyclobenzaprine (Flexeril) 10 MG tabletIndications: Acute bilateral low back pain without sciatica Take 1 tablet (10 mg) by mouth 3 times daily for 10 days. 30 tablet 4 Active lidocaine (Lidoderm) 5 % patchIndications:A cute bilateral low back pain without sciatica Apply 1 patch topically Once per day. Remove & discard patch within 12 hours or as directed by MD. 30 patch 1 4 Active Active Problems Problem Noted Date Diagnosed Date Acute bilateral low back pain without sciatica 1 05/18/2023 Assessment & Plan (03/17/2024 12:35 PM EST): Apply heat on affected area If symptoms persist or worse please reports back Plantar wart of right foot 02/08/2024 Vaginal itching 09/28/2023 Assessment & Plan (09/28/2023 12:54 PM EDT): -suspicious for lichen sclerosis -will refer to [facility] community [facility] for biopsy before initiating treatment -vaginal swab obtained for BV and yeast testing. Will treat accordingly if positive -vaginal health reviewed. Discouraged against use of soap intravaginally as to not alter vaginal pH -may take benadryl for itching until evaluated by director community center. Postmenopausal bleeding 09/03/2023 Assessment & Plan (11/15/2023 4:25 PM EDT): Patient request to procedure to stop when she was being sounded, complied with patient and stopped procedure. She reports she didn't tolerate the sound, at this moment will be better served in FIELD SERVICES DIRECTOR office, could consider sedation to assist with [...] positive gastritis 09/27/2022 Overview (09/27/2022): EGD 12/2018 [facility]: Esophagitis with No Niko's + Moderate Active [...] [place]. Mother gave her away to the [facility] and was in [facility] from age 14 until 20 y/o. She reported sxs such as lack of motivation, depressed, sleep disturbance, little energy, poor appetite, trouble with concentration, thoughts without plan or intention, feeling nervous, irritability, fearful. She denies SI, HI, AVH or self-harm at this time. Symptoms do not appear to be due to substance use or other medical disorder. 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 Patient will benefit from Ind. Therapy and Medication Management. At this time Violette Camacho meets criteria for Visit Diagnoses: Problem List Items Addressed This Visit Other Mixed anxiety and depressive disorder Patient ready to address current needs Yes Strengths include Family support, and willing to engage in services. PLAN: 1. Follow up with [facility]: Recommended for follow-up: 10/06/22 at 1pm 2. [...] Encounters Date Type Department Care Team Description 07/09/2024 Population Health Risk Score [facility] Department [address] [address] Provider, Population Health Generic 07/01/2024 11:00 AM EDT Office Visit [facility] ADULT DENTAL [address] [place] [address] Reji Ramesh Dental caries (Primary Dx); Full coverage crown needed for root canal-treated tooth; Dental calculus 05/16/2024 9:00 AM EST Office Visit [facility] WALK-IN CENTER [address] [place] [address] Name, MD Cuate Left foot pain (Primary Dx) from Last 3 Months Immunizations Name Administration [...] Sign Reading Time Taken Comments Blood Pressure 138/74 07/01/2024 11:03 AM EDT Pulse 75 07/01/2024 11:03 AM EDT Temperature 36.8 ??C (98.3 ??F) 05/16/2024 9:00 AM ES T Respiratory Rate 19 05/16/2024 9:00 AM EST Oxygen Saturation 98% 04/15/2024 8:41 AM EST Inhaled Oxygen Concentration - - Weight 110 kg (242 lb 9.6 oz) 05/16/2024 9:00 AM EST Height 157.5 cm (5' 2 ) 05/16/2024 9:00 AM EST Body Mass Index 44.37 05/16/2024 9:00 AM EST Plan of Treatment Upcoming Encounters Date Type Department Care Team (Late st Contact Info) Description 08/22/2024 10:30 AM EDT Office Visit [facility] MEDICINE [address] [place] [address] Rosa Adams MD [address] [place] [address] Health Maintenance Due Date Last Done Comments CT Colonography 1972 Colonoscopy 1972 Colorectal Cancer Screening 1972 FIT DNA/Cologuard 1972 FIT 1972 FOBT 1972 HIV Screening 1972 Sigmoidoscopy 1972 Alcohol/Substance Use Screening 1984 Family Planning (PISQ) 1987 Hepatitis B Vaccines (1 of 3 - 19+ 3-dose series) 1991 Pneumococcal Vaccine: 50+ Years (1 of 2 - PCV) 1991 Zoster Vaccines (1 of 2) 2022 SDOH Screening 09/23/2023 09/22/2022 COVID-19 Vaccine ( - 2023- season) 2023 09/15/2020, 08/18/2020 Influenza Vaccine (#1) 2023 , 03/23/2020, 01/15/2018, Additional history exists Depression Screening 08/30/2024 08/31/2023, 08/31/19 24 Dental Oral Exam 01/02/2025 07/01/2024, 06/2022, 03/07/2022, Additional history exists Dental Prophylaxis 01/02/2025 07/01/2024, 11/23/2015 Mammogram 01/10/2025 01/11/2024, 11/15, 10/27/2020, Additional history exists Dental X-Ray: Full Mouth 03/08/2025 03/07/2022, 04/0 10/2015 Tobacco Screening 07/01/2025 07/01/2024 Dental X-Ray: Bitewings 07/02/2025 07/02/19 25, 03/07/2022, 07/22/2015 DTaP/Tdap/Td Vaccines (2 - Td or Tdap) 02/07/2026 02/08/2016 Lipid Panel 03/06/2028 03/06/2023 Cervical Cancer Screening 11/14/2028 HPV/Cotest 11/14/2028 11/15/2023, 08/31/2023 Pap Smear 11/14/2028 11/15/2023, 08/14, 09/20/2020 RSV Patients and Patients Aged 60 [...] Procedure Name Priority Date/Time Associated Diagnosis Comments PERIODIC ORAL EVALUATION - ESTABLISHED PATIENT Routine 07/01/2024 11:00 AM EDT Dental caries Full coverage crown needed for root canal-treated tooth INTRAORAL - PERIAPICAL FIRST RADIOGRAPHIC IMAGE Routine 07/01/2024 11:00 AM EDT Dental caries Full coverage crown needed for root canal-treated tooth ORAL HYGIENE INSTRUCTIONS Routine 07/01/2024 11:00 AM EDT Dental caries Full coverage crown needed for root canal-treated tooth BITEWINGS - 4 RADIOGRAPHIC IMAGES Routine 07/01/2024 11:00 AM EDT Dental caries Full coverage crown needed for root canal-treated tooth Full PROPHYLAXIS - ADULT Routine 07/01/2024 11:00 AM EDT Dental caries Full coverage crown needed for root canal-treated tooth CASE PRESENTATION, DETAILED AND EXTENSIVE TREATMENT PLANNING Routine 07/01/2024 11:00 AM EDT Dental caries Full coverage crown needed for root canal-treated tooth XR FOOT 3+ VIEWS LEFT Routine 05/16/2024 9:32 AM EST Left foot pain BI MAMMOGRAM SCREENING TOMOSYNTHESIS BILATERAL Routine 01/11/2024 11:40 AM EDT HPV MRNA E6/E7 REFLEX TO HPV 16, 18/45 Routine 11/15/2023 4:20 PM EDT Postmenopausal bleeding Cervical cancer screening THINPREP IMAGING SYSTEM PAP Routine 11/15/2023 4:20 PM EDT Postmenopausal bleeding Cervical cancer screening LIPID PANEL, STANDARD Routine 03/06/2023 8:03 AM EST Overweight INTRAORAL - COMPLETE SERIES OF RADIOGRAPHIC IMAGES Routine 03/07/2022 12:00 AM EST ZZZ HISTORICAL HEPATITIS C AB W/REFL TO HCV RNA, QN, PCR Routine 09/20/2020 9:37 AM EDT from Last 3 Months or Most Recently Relevant to Health Maintenance Results * XR Foot 3+ Views Left (05/16/2024 9:32 AM EST) Anatomical Region Laterality Modality Lower Extremities, Foot Left Radiogra phic Imaging 05/16/2024 9:32 AM EST Narrative 05/16/2024 9:51 AM EST ?[facility] ?[address] ?[place] [address] ?XRay Report ? Signed ? Patient: Violette Camacho V ?MR#: [id number] ?? [id number] ? : 1970 ?Acct:[id number] ? Age/Sex: 54 / F ?ADM Date: 05/16/24 ? Loc: HO.HHCX ? Attending Dr: Cuate Lubin MD ? Ordering Physician: Cuate Lubin MD ?? Date of Service: 05/16/24 ?? Procedure(s): XR foot LT min 3V ?? Accession Number(s): [id number] ? cc: Cuate Lubin MD ? EXAMINATION: [...] ?05/16/24 0948 ? DD/ 0932 ? TD/TT: 05/16/2444 ? Senior Peoplesoft Developer: ? Procedure Note Donotuseinterpreter, Image - 05/16/[address] [address] XRay Report Signed Patient: Violette Camacho VMR#: [id number] : 1970Acct:[id number] Age/Sex: 54 / FADM Date: 05/16/24 Loc: HO.HHCX Attending Dr: Cuate Lubin MD Ordering Physician: Cuate Lubin MD Date of Service: 05/16/24 Procedure(s): XR foot LT min 3V Accession Number(s): [id number] cc: Cuate Lubin MD EXAMINATION: XR FOOT, [...] Rohith Hernandez MD 05/16/2024 09:48 AM EST RP Dictated By: Rohith Hernandez MD Signed By: <Electronically signed by Rohith Hernandez MD in OV> 05/16/24947 DD/ 1 TD/TT: 05/16/24943 Senior Peoplesoft Developer: Cuate Lubin MD IMG XR PROCEDURES Final Result * BI Mammogram Screening Tomosynthesis Bilateral (01/11/2024 11:40 AM EDT) Anatomical Region Laterality Modality Breast Bilateral Mammography 01/11/2024 11:4 0 AM EDT Narrative 01/23/2024 3:20 PM EDT ? [place] [facility] ? [address] [place] [address] ? Mammography Report ? Signed ? Patient: Camacho,Violette V ?MR#: [id number] ?? [id number] ? : 1970 ?Acct:[id number] ? Age/Sex: 53 / F ?ADM Date: 01/11/24 ? Loc: HO.MAMMO ? Attending Dr: Maggi Sparrow MD ? Ordering Physician: Maggi Sparrow ?Results: 1Negative ? Date of Service: 01/11/24 ?Follow Up: 1 Year From Orig ?? inal Mammogram ? Procedure(s): MM tomosynthesis screening BI ?? Accession Number(s): [id number] ? cc: Maggi Sparrow ? EXAMINATION: ?? [...] Kristie Mauricio, DO in OV> ? 01/23/24 151 ? DD/ 1140 ? TD/TT: 01/11/24 1159 ? Senior Peoplesoft Developer: ? Procedure Note Carlos Alberto Lucas - 01/23/2024 [place] [facility] [address] [place] [address] Mammography Report Signed Patient: Violette Camacho VMR#: [id number] 477 : 1970Acct:[id number] Age/Sex: 53 / FADM Date: 01/11/24 Loc: HO.MAMMO Attending Dr: Maggi Sparrow MD Ordering Physician: Calixto Sparrowults: 1Negative Date of Service: 01/11/24Follow Up: 1 Year From Orig inal Mammogram Procedure(s): MM tomosynthesis screening BI Accession Number(s): [id number] cc: Maggi Sparrow EXAMINATION: MM SCREENING DIGITAL [...] 01/23/24 1516 DD/ 1140 TD/TT: 01/11/24 1159 Senior Peoplesoft Developer: Maggi Sparrow MD IMG BI PROCEDURES Final Result * Pap Smear (11/15/2023 4:20 PM EDT) SOURCE: SEE NOTE [facility] Comment:None given Report Status: [facility] Clinical Information: SEE NOTE [facility] Comment:None given LMP: SEE NOTE [facility] Comment:NONE GIVEN Prev. PAP: SEE NOTE [facility] Comment:NONE GIVEN Prev. BX: SEE NOTE [facility] Comment:NONE GIVEN Statement Of Adequacy: SEE NOTE [facility] Comment:Satisfactory for edith luation.Endocervical/transformation zone componentpresent. General Categorization: [facility] Interpretation/Result: SEE NOTE [facility] Comment:Cytology Results: Ne gative for intraepitheliallesion or malignancy. Cytology Comment SEE NOTE [facility] Comment:This Pap test has be en evaluated with computerassisted technology. Alarm Service Technician: SEE NOTE [facility] Comment:CMB, CT(ASCP) CT Scr eening Location: [email or web address] [place],[address] [place] [address]Pjahu preparation performed at: [email or web address], [address] [place] [address] CLIA No. [id number] Review Alarm Service Technician: [facility] Pathologist TNP [facility] See Note SEE NOTE [facility] Comment:EXPLANATORY NOTE:The Pap is a screening test for cervical cancer. It isnot a diagnostic test and is subject to false negativeand false positive results. It is most reliable when asatisfactory sample, regularly obtained, is submittedwith relevant clinical findings and history, and whenthe Pap result is evaluated along with historic andcurrent clinical information.THIS TEST WAS PERFORMED AT:[facility] [address] [phone] MERATI,MD Pap Vial Vaginal structure / Unknown 11/15/2023 4:20 PM EDT 11/15/2023 6:14 PM EDT Narrative [facility] - 11/21/2023 3:04 PM EDT SEE SCANNED RESULTS IN EMR us Keren Davis MD LAB PATHOLOGY ORDERABLES Ne stoll Result [facility] [address] [place] [address] [phone] * HPV mRNA E6/E7 w/Reflex to HPV Genotypes 16, 18/45 (11/15/2023 4:20 PM EDT) HPV nRNA E6/E7 Not Detected Not Detected [facility] Comment:Methodology: Transcr iption-Mediated AmplificationThis assay detects E6/E7 viral messenger RNA (mRNA) from 14high-risk HPV types (16,18,31,33,35,39,45,51,52,56,58,59,66,68).Cervical sources are required for HPV testing.If a vaginal source from a patient who has had atotal hysterectomy with removal of cervix wassubmitted, please contact the testing laboratoryfor alternative testing options.For additional information, please refer tohttp://education.Maxta/faq/FUW642t4(This link if provided for information/educational purposes only.)THIS TEST WAS PERFORMED AT:[facility] [address] [phone] CURIEL MD HPV mRNA E6/E7 TNP [facility] HPV 16 RNA TNP [facility] HPV 18/45 RNA TNP [facility] Vaginal Fluid Cervix uteri structure / Unknown 11/15/2023 4:20 PM EDT 11/15/2023 6:14 PM EDT Narrative [facility] - 11/21/2023 3:05 PM EDT Collection Date: [id number] by: MAGO Contreras: Cervix us Keren Davis MD LAB CYTOLOGY ORDERABLES Final Result [facility] [address] [place] [phone] * (ABNORMAL) Lipid Panel, Standard (03/06/2023 8:03 AM EST) Triglycerides 68 <150 mg/dL [facility] Comment:Desirable Triglyceri de: less than 150 mg/dLBorderline High Triglyceride 150-199 mg/dLHigh Triglyceride: 200-499 mg/dLVery High Triglyceride: greater than or equal to 5OO mg/dL Cholesterol 171 <200 mg/dL [facility] Comment:Desirable Cholestero l: less than 200 mg/dLBorderline High Cholesterol: 200-239 mg/dLHigh Cholesterol: greater than 239 mg/dL LDL Cholesterol Calculated 115(H) <100 mg/dL [facility] Comment:Desirable LDL: less than 100 mg/dLNear Optimal/Above Optimal LDL: 110- 129 mg/dLBorderline High LDL: 130-159 mg/dLHigh LDL: 160-189 mg/dLVery High LDL: greater than or equal to 190 mg/dL HDL Cholesterol 43 >40 mg/dL [facility] Comment:Desirable HDL: great er than 40 mg/dL Note: This HDL assay may give artificially low results in patients with liver disease. Blood Venous blood specimen / Unknown 03/06/2023 8:03 AM EST 03/06/2023 11:16 AM EST us Maggi Sparrow MD LAB BLOOD ORDERABLES Final Res ult [facility] [address] [place] [address] [phone] * HEPATITIS C AB W/REFL TO HCV RNA, QN, PCR (09/20/2020 9:37 AM EDT) HEPATITIS C ANTIBODY NON-REACT JOHN NON-REACT JOHN [facility] INDEX 0.03 <1.00 [facility] Comment: ?? HCV antibody was non-reactive. There is no laboratory ?? evidence of HCV infection. ?? In most cases, no further action is required. However, if recent HCV exposure is suspected, a test for HCV RNA (test code 93357) is suggested. ?? For additional information please refer to http://CasterStats.Maxta/faq/WLI11t3 (This link is being provided for informational/ educational purposes only.) ?? 09/20/2020 9:37 AM EDT us Maggi Sparrow MD HISTORICAL/NON ORDERABLE LABS Final Result Performing Organization Address City/[facility] Co de Phone Number [facility] [address] from Last 3 Months or Most Recently Relevant to Health Maintenance Insurance HSN PARTIAL [facility] [place]ANDARD D[place] STAND AD[place] Care Teams Product Manager Financial Services Relationship Specialty Start Date End Date Maggi Sparrow MD [address] [place] [address] PCP - General Family Medicine 02/26/20
--- OUTSIDE RECORDS SUMMARY | 2024-08-11 12:25 | XMS_ITS | Encounter Summary ---
Author Organization [employer] Address [address] [place] [address] [address] [place] [address] Care Team Providers Care Harvest Worker Field Crop Name Role Phone Maggi Sparrow MD Primary Care Provider [phone] Reason for Visit * Reason Onset Date Comments Appointment 10/11/2022 Encounter Details Date Type Department Care Team ([facility] st Contact Info) Description 10/11/2022 Telephone [facility] ADULT DENTAL [address] [place] [address] Beny Bliss, DMD [address] [place] [address] Appointment Social History Tobacco Use Types Packs/Day [...] documented in this encounter Plan of Treatment Upcoming Encounters Date Type Department Care Team (Late st Contact Info) Description 08/22/2024 10:30 AM EDT Office Visit [facility] MEDIC[facility] [address] [place] [address] Rosa Adams MD [address] [place] [address] documented as of this encounter Visit Diagnoses Not on filedocumented in this encounter Additional Health Concerns Assessment Noted Time PHQ-9 Depression Total Score: 20 023 1:04 PM EDT documented as of this encounter Care Teams Harvest Worker Field Crop Relationship Specialty Start Date End Date Maggi Sparrow MD [address] [place] [address] PCP - General Family Medicine 02/26/20 documented as of this encounter
--- OUTSIDE RECORDS SUMMARY | 2024-08-11 12:25 | XMS_ITS | Encounter Summary ---
Author Organization [employer] Address [address] [place] [address] 7 [place] [address] Care Team Providers Care Media Marketing Director Name Role Phone Maggi Sparrow MD Primary Care Provider [phone] Reason for Referral * Consultation (Routine) - Pending Review Specialty Diagnoses / Procedures Referred By Tegan t Referred To Contact Obstetrics and Gynecology Diagnoses Postmenopausal bleeding Maggi Sparrow MD [address] [place] [address] Phone: tel: fax: Referral ID Status Reason Start Date Expiration Date Visits Requested Visits Authorized [id number] Pending Review Specialty Services Required 09/23/2023 09/22/2024 1 1 Encounter Details Date Type Department Care Team ([facility] st Contact Info) Description 09/23/2023 Orders Only [facility] [address] [place] [address] [phone] Maggi Sparrow MD [address] [place], [place] [phone] Postmenopausal bleeding (Primary Dx) Social History Tobacco [...] as of this encounter Plan of Treatment Upcoming Encounters Date Type Department Care Team (Late st Contact Info) Description 08/22/2024 10:30 AM EDT Office Visit [facility] [address] [place] [address] Rosa Adams MD [address] [place] [phone] Scheduled Referrals Name Type Priority Associated Diagnoses Order Schedule Referral to Obstetrics / Gynecology Outpatient Referral Routine Postmenopausal bleeding Expected: 09/23/2023 (Approximate), Expires: 09/22/2024 documented as of this encounter Visit Diagnoses Diagnosis Postmenopausal bleeding- Primary documented in this encounter Additional Health Concerns Assessment Noted Time PHQ-9 Depression Total Score: 0 08/31/19 24 3:19 PM EDT documented as of this encounter Care Teams Media Marketing Director Relationship Specialty Start Date End Date Maggi Sparrow MD [address] [place] [phone] PCP - General Family Medicine 02/26/20 documented as of this encounter
--- OUTSIDE RECORDS SUMMARY | 2024-08-11 12:25 | XMS_ITS | Encounter Summary ---
Author Organization [employer] Address [address] [place] [address] 7 [place] [address] Care Team Providers Care Cereal Chemist Name Role Phone Maggi Sparrow MD Primary Care Provider [phone] Reason for Visit * Reason Onset Date Comments Med Refill 07/17/2023 Encounter Details Date Type Department Care Team ([facility] st Contact Info) Description 07/17/2023 Refill [facility] MEDICINE [address] [place] [address] Maggi Sparrow MD [address] [place] [address] Primary insomnia Social History Tobacco Use Types [...] Description 08/22/2024 10:30 AM EDT Office Visit [facility] MEDICINE [address] [place] [address] Rosa Adams MD [address] [place], [place] [phone] documented as of this encounter Visit Diagnoses Diagnosis Primary insomnia Persistent disorder of initiating or maintaining sleep documented in this encounter Additional Health Concerns Assessment Noted Time PHQ-9 Depression Total Score: 20 023 1:04 PM EDT documented as of this encounter Care Teams Cereal Chemist Relationship Specialty Start Date End Date Maggi Sparrow MD [address] [place] [address] PCP - General Family Medicine 02/26/20 documented as of this encounter
--- OUTSIDE RECORDS SUMMARY | 2024-08-11 12:25 | XMS_ITS | Encounter Summary ---
Author Organization [employer] Address [address] [place] [address] [address]t [place] [address] Care Team Providers Care Travel Physical Therapist Name Role Phone Maggi Sparrow MD Primary Care Provider [phone] Encounter Details Date Type Department Care Team (Late Contact Info) Description 10/09/2022 Abstract [facility] ADULT DENTAL [address] [place] [address] Beny Bliss, DMD [address] [place] [address] Social History Tobacco Use Types Packs/Day Years [...] Encounters Date Type Department Care Team (Late Contact Info) Description 08/22/2024 10:30 AM EDT Office Visit [facility] MEDICINE [address] [place] [address] Rosa Adams MD [address] [place] [address] documented as of this encounter Visit Diagnoses Not on filedocumented in this encounter Additional Health Concerns Assessment Noted Time PHQ-9 Depression Total Score: 14 023 11:54 AM EDT documented as of this encounter Care Teams Travel Physical Therapist Relationship Specialty Start Date End Date Maggi Sparrow MD [address] [place] [address] PCP - General Family Medicine 02/26/20 documented as of this encounter
== END 2024-08-11 11:00 | disposition home or self-care (01) ==
LOC: HO.HGI 10:33
PROVIDERS: PCP General Practice; Visit Provider Nurse Practitioner Family
DX: K21.9 Gastro-esophageal reflux disease without esophagitis (principal); R10.13 Epigastric pain; K58.2 Mixed irritable bowel syndrome; R14.0 Abdominal distension (gaseous)
CPT/HCPCS: 99214

== ENCOUNTER → 2024-08-11 10:32 | Outpatient (BNVA) | payer MEDICAID, SELFPAY | PROVIDERS: PCP General Practice; Visit Provider Nurse Practitioner Family | DX: K21.9 Gastro-esophageal reflux disease without esophagitis (principal); K58.2 Mixed irritable bowel syndrome; R10.13 Epigastric pain; R14.0 Abdominal distension (gaseous) | CPT/HCPCS: 99212 ==

== ENCOUNTER → 2024-09-10 09:07 | Outpatient (REF) | payer MEDICAID, SELFPAY ==
--- NOTE | 2024-09-10 09:12 | CA_ITS ---
Acquisition Time: 2024-09-10 10:03:02 Total Exercise Time: 00:05:02 Test Indications: CP Medications: SEE H&P Protocol: TYREL Max HR: 153 BPM 91% of Pred: 168 BPM Max BP: 148/70 mmHG Max Work Load: 7.0 METS Exercise stress test with exercise 5 mins 2 secs of Tyrel Protocol, achieving 91% MPHR, with reports of mild SOB, no chest pain, without any arrythmias, with normotensive response to exercise. Without any EKG changes meeting criteria for ischemia. In recovery, breathing returned to baseline. Test reviewed with Dr. Washington. Referred By: Vincent Washington Electronically Signed By: Thierno Mena
--- NOTE | 2024-09-10 09:12 | CA_ITS ---
Transthoracic Echocardiogram Patient (Last, First, Middle): Violette Camacho V Gender: Female Date of : 1970 Age: 54 Procedure Date: 09/10/2024 Procedure Type: Transthoracic Echocardiogram Location: OP Height: 154.94 cm Weight: 114.31 kg BSA: 2.08 m2 Heart Rate: bpm BP: 116 / 76 mmHg Branch Retail Executive: MICHAEL Referring MD: Vincent Washington MD Chief Architect: Vincent Washington MD Symptoms: R07.89 - Other chest pain Study Quality: Adequate ECG Rhythm: Sinus with extra beats Conclusions: - Essentially normal study Findings Left Ventricle Normal left ventricular size, thickness, and systolic function. The visually estimated ejection fraction is between 60-65%. Spectral Doppler is indicative of a normal filling pattern. Right Ventricle Normal right ventricular cavity size. There is normal right ventricular systolic function. Atria The left atrium is likely dilated. Interatrial shunt cannot be excluded. The right atrium is normal in size. Aortic Valve The aortic valve structure and function is likely normal. There is no aortic valve stenosis. There is no aortic valve regurgitation. Mitral Valve Normal mitral valve structure and function. There is trace mitral valve regurgitation. There is no mitral valve stenosis. Pulmonic Valve The pulmonic valve was not well visualized. Tricuspid Valve Likely normal tricuspid valve structure and function. Tricuspid regurgitation envelope is inadequate for calculation of right ventricular systolic pressure. Normal right atrial pressure. Great Vessels All visible segments of the aorta are normal in size. The pulmonary artery was not well visualized. Venous The inferior vena cava is normal in size and collapses greater than 50% with inspiration. Pericardium/Pleural There is no evidence of pericardial effusion. Prior Study Comparison No prior study available for comparison. Measurements 2D Linear Measurements IVSd: 0.82 0.6-0.9/0.6-1.0 cm LVIDd: 5.04 3.9-5.3/4.2-5.9 cm LVIDd Index: 2.42 2.4-3.2/2.2-3.1 cm/m2 LVIDs: 3.36 2.0-3.6 cm LVPWd: 0.79 0.7-1.1 cm LA Diam: 3.60 2.7-3.8/3.0-4.0 cm LAIDs Index: 1.73 1.5-2.3 cm/m2 LV Mass: 172.42 67-162/88-224 g LV Mass Index: 82.90 43-95/49-115 g/m2 LVOT Diam: 2.30 3.0+(-)1.3 cm 2D Systolic Function EF 4C: 59.20 >55% EF 2C: 62.70 >55% EF BiP: 60.20 >55% Mitral Valve MV Pk E: 1.12 MV PK A: 0.96 MV Decel Time: 242.00 E/A: 1.20 E'Lateral: 10.70 E'Medial: 9.79 E/E' Med: 11.40 E/E' Lat: 10.50 PHT: 71.00 MVA PHT: 3.10 Decel Butts: 4.64 Aortic Valve AoV Pk Bryan: 1.37 AoV Mn Bryan: 0.90 AoV VTI: 0.31 AoV Pk Grad: 8.00 Aov Mn Grad: 4.00 RADHA Cont.VTI: 2.94 LVOT LVOT Pk Bryan: 0.94 LVOT Mn Bryan: 0.62 LVOT VTI: 0.22 LVOT Pk Grad: 4.00 LVOT Mn Grad: 2.00 LVOT Diam: 2.30 LVOT Area: 4.15 Diastolic Function MV Pk E: 1.12 MV Pk A: 0.96 E/A: 1.20 E'Medial: 9.79 E/E' Med: 11.40 E' Laterial: 10.70 E/E' Lat: 10.50 Right Ventricle TAPSE (mm): 25.80 TVS' Bryan: 10.80 Tricuspid Valve RA Press: 3.00 Great Vessels Aorta Sinus of Valsalva: 2.98 2.0-3.5 cm Ao Asc: 2.60 2.1-3.4 cm Updated in Other Vendor System with Status of Final Vincent Washington MD electronically signed on 09/11/2024 8:22:02 AM with status of Final
--- OUTSIDE RECORDS SUMMARY | 2024-09-10 09:41 | XMS_ITS | Encounter Summary ---
Author Organization [employer] Address [address] [facility] [address] [place] [address] Care Team Providers Care Latcher Name Role Phone Maggi Sparrow MD Primary Care Provider [phone] Reason for Visit * Reason Onset Date Comments Med Refill 07/17/2023 Encounter Details Date Type Department Care Team ([facility] st Contact Info) Description 07/17/2023 Refill [facility] MEDICINE [address] [place] [address] Maggi Sparrow MD [address] [place] [address] Primary insomnia Social History Tobacco Use Types [...] documented as of this encounter Care Teams Latcher Relationship Specialty Start Date End Date Maggi Sparrow MD [address] [place] [id number] PCP - General Family Medicine 02/26/20 documented as of this encounter
== END ==
LOC: HO.CARD 09:07
PROVIDERS: PCP General Practice; Visit Provider Internal Medicine Cardiovascular Disease
DX: R07.89 Other chest pain (principal)
CPT/HCPCS: 93017; 93306

== ENCOUNTER → 2024-09-10 09:12 | Outpatient (BNV) | payer MEDICAID, SELFPAY | PROVIDERS: PCP General Practice | DX: R06.02 Shortness of breath (principal) | CPT/HCPCS: 93016; 93018; 93320; 93350 ==

== ENCOUNTER 2024-10-01 12:47 | Outpatient (AMB) | payer MEDICAID, SELFPAY ==
--- NOTE | 2024-10-01 13:00 | A.OFFVIS_ITS ---
Vital Signs 10/01/24 13:03 Height 5 ft 1 in Weight 252 lb 3.341 oz BMI 47.6 BP 110/70 Blood Pressure Location Lt brachial Position Sitting Pulse 85 Pulse Source Pulse Oximeter Intake Visit Reasons: 2 mth s/p ett/ echo NS Intake Note: 2 mth f/up/ ett/ echo Greenkeeper Required: No Accompanied by: Self / Same As Patient Allergies Penicillins Allergy (Verified 11/16/23 09:55) Unknown Medication List - Last Reconciled 10/01/24 by Thierno Mena NP cholecalciferol (vitamin D3) (Vitamin D3) 2,000 units PO DAILY esomeprazole magnesium (Nexium) 40 mg PO DAILY famotidine 40 mg PO BEDTIME PRN trazodone 50 mg PO BEDTIME PRN HPI Comments Details: This is a 54-year-old female patient coming in for a follow-up visit. Patient was previously seen in the office for complaints of chest discomfort. Subsequently patient underwent a myocardial perfusion study and a echocardiogram. Patient is reporting feeling well overall and denies any exert ional symptoms of chest pain and shortness of breath, palpitations, dizziness, orthopnea, PND, leg edema, presyncope, or syncope. Patient states that epigastric pain from GERD is intermittent and was recently started on Nexium which patient states is effective. PFSH Surgical History Hx of colonoscopy History of esophagogastroduodenoscopy (EGD) Hx of section Family History Mother Cancer Social History Patient Tobacco Use Status: Current everyday Tobacco user Years Smoked: since 19 yrs old Review of Systems Const Denies chills, Denies fatigue, Denies fever(s), Denies frequent falls, Denies weakness, Denies weight gain and Denies weight loss ENT Denies dizziness Card Denies chest pain, Denies leg edema, Denies lightheadedness, Denies palpitations, Denies dyspnea and Denies dyspnea on exertion Resp Denies cough, Denies dyspnea and Denies dyspnea on exertion GI Denies hematochezia Musc Denies abnormal gait, Denies muscle weakness, Denies numbness, Denies radiating pain into limb and Denies tingling Neuro Denies abnormal gait, Denies dizziness, Denies frequent falls, Denies numbness, Denies tingling and Denies weakness Endo Denies fatigue and Denies palpitations Physical Exam Vital Signs: Last Vital Signs Pulse 85 10/01/24 13:03 BP 110/70 10/01/24 13:03 BMI result Body Mass Index 47.6 Const General: cooperative, healthy appearing, comfortable and no acute distress Orientation/consciousness: patient oriented x3 HEENT Head: Yes normal to inspection Neck Neck: Yes normal visual inspection, Yes trachea midline and Yes supple Chest Chest palpation & inspection: normal inspection of the chest Resp Effort & Inspection: normal respiratory effort Auscultation: clear to auscultation bilaterally, no crackles, no rales, no rhonchi and no wheezes Cardio Jugular venous distension: no JVD Palpation: normal PMI Rate: regular rate Rhythm: regular rhythm Heart sounds: S1 normal heart sound present, S2 normal heart sound present, no click, no gallops, no murmurs and no rubs Peripheral pulses: Peripheral pulses 2+ throughout GI Inspection: Yes normal to inspection Palpation (GI): Soft to palpation Auscultation: normal bowel sounds Skin General skin exam: no rashes or lesions noted Neuro General: patient oriented x3 Extrem General: Yes normal to inspection, No no pedal edema and No calf tenderness Psych Appearance: grossly normal Mental Status: mental status grossly normal Speech and movement: Normal speech and movement present Assessment & Plan Assessment & Plan (1) Atypical chest pain: Code(s): R07.89 - Other chest pain Category: Medical Plan: 09/10/2024-patient underwent an echocardiogram that showed a normal LV systolic function with an ejection fraction between 60-65% with no wall motion abnormality or valvular pathology. 09/10/2024-patient underwent a myocardial perfusion study that showed normal perfusion. Given above findings, patient's symptoms most likely related to GI pathology. Follows with GI for this. Blood pressure within normal limits. Cause LDL from 2022 was slightly elevated at 115. Patient states that she has made dietary changes since. Patient will follow up with PCP in regards to cholesterol levels at her annual visit, LDL goal should be closer to 70s. Advised heart healthy diet, smoking cessation, regular exercise, losing weight, and management of vascular risk factors. Follow-up on an as-needed basis. In the interim, patient will call the office with any concerns or change in symptoms. This note was generated using voice recognition software. While every effort has been made to ensure accuracy and proper cooperative education director, there may be occasional errors that could affect the content or meaning of the described symptoms. Coding Level of Care Code Est Pt Level 3 (26954) Complex EM visit Add On G2211 Diagnoses Atypical chest pain R07.89 Time Spent (min) 29 Comment Time spent in reviewing the chart, test results, assessment, counseling and documentation.
[2024-10-01 13:03] VITALS: BP 110/70; PULSE 85; BMI 47.6
--- OUTSIDE RECORDS SUMMARY | 2024-10-01 14:37 | XMS_ITS | Encounter Summary ---
Author Organization [employer] Address [address] [facility] 7t [place] [address] Care Team Providers Care Neon Sign Erector Name Role Phone Maggi Sparrow MD Primary Care Provider [phone] Reason for Visit * Reason Onset Date Comments Med Refill 07/17/2023 Encounter Details Date Type Department Care Team ([facility] st Contact Info) Description 07/17/2023 Refill [facility] MEDICINE [address] [place] [address] Maggi Sparrow MD [address] [place] [address] Primary insomnia Social History Tobacco Use Types [...] Care Team (Late st Contact Info) Description 10/09/2024 8:00 AM EDT Office Visit [facility] [address] [place] [address] Beny Bliss, DMD [address] [place] [address] documented as of this encounter Visit Diagnoses Diagnosis Primary insomnia Persistent disorder of initiating or maintaining sleep documented in this encounter Additional Health Concerns Assessment Noted Time PHQ-9 Depression Total Score: 20 023 1:04 PM EDT documented as of this encounter Care Teams Neon Sign Erector Relationship Specialty Start Date End Date Maggi Sparrow MD [address] [place] [address] PCP - General Family Medicine 02/26/20 documented as of this encounter
== END 2024-10-01 13:15 | disposition home or self-care (01) ==
LOC: HO.HCS 12:47
PROVIDERS: PCP General Practice
DX: R07.89 Other chest pain (principal)
CPT/HCPCS: 99213

== ENCOUNTER → 2024-10-01 12:47 | Outpatient (BNVA) | payer MEDICAID, SELFPAY | PROVIDERS: PCP General Practice | DX: R07.89 Other chest pain (principal); K21.9 Gastro-esophageal reflux disease without esophagitis; R10.13 Epigastric pain | CPT/HCPCS: 99212 ==

== ENCOUNTER 2024-12-08 10:35 | Outpatient (AMB) | payer MEDICAID, SELFPAY ==
--- NOTE | 2024-12-08 10:39 | A.OFFVIS_ITS ---
Vital Signs 12/08/24 10:43 Height 5 ft 1 in Weight 251 lb BMI 47.4 BP 110/64 Blood Pressure Location Rt brachial Position Sitting Pulse 94 Pulse Source Pulse Oximeter Pulse Oximetry (%) 95 Oxygen Delivery Method Room Air Intake Visit Reasons: 4 mo f/u Intake Note: ESTABLISHED PATIENT for GERD + IBS mgmt. Chief Complaint; Pt denies any GI changes or new sx since last visit. Hospitality Intern Required: No Accompanied by: Self / Same As Patient Allergies Penicillins Allergy (Verified 12/08/24 10:42) Unknown HPI HPI 4 mo f/u: Details: LAST VISIT GERD (gastroesophageal reflux disease) Postprandial epigastric pain IBS (irritable bowel syndrome) Abdominal bloating Plan Patient will continue current regimen with PPI and H2 davon. Avoid dietary triggers and late night snacking. Staying upright for minimal 3 hours after meals discussed with patient. Patient reports that she does not eat vegetables or foods as she has been having weird reaction like burning in her throat after eating banana, strawberries or raspberries. Will send a script for Citrucel to help her bulk stools. Increase fluid intake and activity to promote better bowel motility. Patient reports postprandial abdominal bloating. Low FODMAP diet discussed with patient. List of food recommended as well as list of food to avoid given to patient. Patient will follow-up in 4 months, sooner on as needed basis. She is agreeable to this plan and verbalizes understanding of instructions. She was given the opportunity to ask questions and all questions answered. ? Thank you for allowing me to participate in her care New methylcellulose (laxative) (Citrucel) 500 mg PO DAILY 60 tabs 2RF PATIENT HAD NEGATIVE COLOGUARD IN MAY OF 2023 TODAY'S VISIT Patient is here today for follow-up. Patient reports that she has been feeling fairly well. Only uses famotidine as needed. Patient is trying to eat smaller meals only couple times a day. Sometimes patient does not eat still to o'clock in the afternoon 1st meal. Nexium is helping. Patient denies dyspepsia, dysphagia or odynophagia. Patient reports that she is moving her bowels well. However she admits that sometimes she will have 3-4 bowel movements him in the morning before she goes to work. Patient denies melena, hematochezia, unintentional weight loss or ribbon like stools. Patient had negative Cologuard in May of 2023. Patient still does not want to go for colonoscopy. She will do Cologuard again when it is due. [facility] Surgical History Hx of colonoscopy History of esophagogastroduodenoscopy (EGD) Hx of section Family History Mother Cancer Social History Patient Tobacco Use Status: Current everyday Tobacco user Years Smoked: since 19 yrs old Physical Exam Vital Signs: Last Vital Signs Pulse 94 12/08/24 10:43 BP 110/64 12/08/24 10:43 Pulse Ox 95 12/08/24 10:43 Oxygen Delivery Method Room Air 12/08/24 10:43 BMI result Body Mass Index 47.4 Assessment & Plan Assessment & Plan (1) Gastroesophageal reflux disease: Code(s): K21.9 - Gastro-esophageal reflux disease without esophagitis Qualifiers: Esophagitis presence: esophagitis presence not specified Qualified Code(s): K21.9 - Gastro-esophageal reflux disease without esophagitis (2) Postprandial epigastric pain: Code(s): R10.13 - Epigastric pain (3) Irritable bowel syndrome: Code(s): K58.9 - Irritable bowel syndrome, unspecified Qualifiers: Irritable bowel syndrome type: with diarrhea Qualified Code(s): K58.0 - Irritable bowel syndrome with diarrhea (4) Abdominal bloating: Code(s): R14.0 - Abdominal distension (gaseous) Plan Patient will continue taking Nexium in the morning and famotidine as needed at bedtime. Continue avoiding dietary triggers. Avoid late night snacking. Staying upright for minimum 3 hours after meals discussed with patient. Patient will continue low FODMAP diet. Follow-up in 6 months, sooner on as needed basis. Patient is agreeable to plan of care and verbalizes understanding of instructions. She was given the opportunity to ask questions and all questions answered. Thank you for allowing me to participate her care Medications: Changed From famotidine 40 mg PO BEDTIME PRN K21.9 - Gastro-esophageal reflux disease without esophagitis To famotidine 40 mg PO BEDTIME 30 tabs 4RF K21.9 - Gastro-esophageal reflux disease without esophagitis Refilled esomeprazole magnesium (Nexium) 40 mg PO DAILY 90 caps 3RF K21.9 - Gastro- esophageal reflux disease without esophagitis Coding Level of Care Code Est Pt Level 3 (93141) Diagnoses Gastroesophageal reflux disease, unspecified whether esophagitis present K21.9 Esophagitis presence: esophagitis presence not specified Postprandial epigastric pain R10.13 Irritable bowel syndrome with diarrhea K58.0 Irritable bowel syndrome type: with diarrhea Abdominal bloating R14.0 Time Spent (min) 25 Comment 25 minutes spent with patient and additional 10 minutes spent reviewing her records
[2024-12-08 10:43] VITALS: BP 110/64; PULSE 94; O2SAT 95; BMI 47.4
--- OUTSIDE RECORDS SUMMARY | 2024-12-08 11:49 | XMS_ITS | Encounter Summary ---
Author Organization [employer] Address [address] [facility] 7t [place] [address] Care Team Providers Care Behavioral Health Care Manager Name Role Phone Maggi Sparrow MD Primary Care Provider [phone] Reason for Visit * Reason Onset Date Comments Med Refill 07/17/2023 Encounter Details Date Type Department Care Team ([facility] st Contact Info) Description 07/17/2023 Refill [facility] MEDICINE [address] [place] [address] Maggi Sparrow MD [address] [place] [address] Primary insomnia Social History Tobacco Use Types [...] Care Team (Late st Contact Info) Description 12/17/2024 8:00 AM EDT Office Visit [facility] ADULT DENTAL [address] [place], [place] [id number] Beny Bliss, DMD [address] [place], [place] [phone] 01/12/2025 2:30 PM EDT Office Visit [facility] MEDICINE [address] [place] [address] Maggi Sparrow MD [address] [place] [address] [phone] documented as of this encounter Visit Diagnoses Diagnosis Primary insomnia Persistent disorder of initiating or maintaining sleep documented in this encounter Additional Health Concerns Assessment Noted Time PHQ-9 Depression Total Score: 20 023 1:04 PM EDT documented as of this encounter Care Teams Behavioral Health Care Manager Relationship Specialty Start Date End Date Maggi Sparrow MD [address] [place] [id number] PCP - General Family Medicine 02/26/20 documented as of this encounter
--- OUTSIDE RECORDS SUMMARY | 2024-12-08 11:49 | XMS_ITS | Encounter Summary ---
Author Organization [facility] Address [address] [facility] [address] [place] [phone] Phone Care Team Providers Care Animal Nursery Worker Name Role Phone Pcp, Unknown Primary Care Provider Unavailabl e Encounter Details Date Type Department Care Team (Late st Contact Info) Description 09/04/2021 Procedure Pass [facility], Ct Scan - [address] [address] Social History Tobacco Use Types Packs/Day Years Used Date Smoking Tobacco: Never Assessed Comments Unknown Sex and Gender Information Value Date Recorded Sex Assigned at Not on file Legal Sex Female 12:41 PM EDT Gender Identity Not on file Sexual Orientation Not on file documented as of this encounter Functional Status * Calculated C-SSRS Risk Score (Lifetime/Recent) Answer Date of Assessment Author Moderate Risk 09/04/2021 12:47 PM EDT Anna Chatterjee RN * Maynard Suicide Severity Rating Scale (Screener/Recent Self-Report) Question Answer Date of Assessment Author 1. Wish to be (Past 1 Month) Yes 09/04/2021 12:47 PM EDT Anna Chatterjee RN 2. Non-Specific Active Suici magnolia Thoughts (Past 1 Month) Yes 09/04/2021 12:47 PM EDT Valentina Chatterjee cia, RN 3. Active Suicidal Ideation with any Methods (Not Plan) Without Intent to Act (Past 1 Month) Yes 09/04/2021 12:47 PM EDT Anna Chatterjee RN 4. Active Suicidal Ideation with Some Intent to Act, Without Specific Plan (Past 1 Month) No 09/04/2021 12:47 PM EDT Anna Chatterjee RN 6. Suicidal Behavior (Lifetime) No 12:47 PM EDT Chatterjee, Anna A, RN documented as of this encounter Plan of Treatment Not on file documented as of this encounter Visit Diagnoses Not on filedocumented in this encounter Care Teams Animal Nursery Worker Relationship Specialty Start Date End Date Pcp, Unknown PCP - General 09/04/21 documented as of this encounter Additional Source Comments The information contained in this document represents components of the legal health record. It is not the complete legal health record.[facility]
== END 2024-12-08 10:57 | disposition home or self-care (01) ==
LOC: HO.HGI 10:37
PROVIDERS: PCP General Practice; Visit Provider Nurse Practitioner Family
DX: K21.9 Gastro-esophageal reflux disease without esophagitis (principal); R10.13 Epigastric pain; K58.0 Irritable bowel syndrome with diarrhea; R14.0 Abdominal distension (gaseous)
CPT/HCPCS: 99213

== ENCOUNTER → 2024-12-08 10:35 | Outpatient (BNVA) | payer MEDICAID, SELFPAY | PROVIDERS: PCP General Practice; Visit Provider Nurse Practitioner Family | DX: K21.9 Gastro-esophageal reflux disease without esophagitis (principal); R10.13 Epigastric pain; K58.0 Irritable bowel syndrome with diarrhea; R14.0 Abdominal distension (gaseous) | CPT/HCPCS: 99212 ==

== ENCOUNTER 2025-01-16 11:35 | Outpatient (REF) | payer MEDICAID, SELFPAY ==
--- OUTSIDE RECORDS SUMMARY | 2025-01-12 14:30 | XMS_ITS | Encounter Summary ---
Author Organization [employer] Address [address] [place] [address] 7[address] [place] [address] Care Team Providers Care Artifacts Conservator Name Role Phone Maggi Sparrow MD Primary Care Provider [phone] Reason for Referral * Consultation (Routine) - Closed Specialty Diagnoses / Procedures Referred By Tegan madera Referred To Contact Obstetrics and Gynecology Diagnoses Endometrial stripe increased Maggi Sparrow MD [address] [place] [address] Phone: tel: fax: [address] Phone: tel: fax: Referral ID Status Reason Start Date Expiration Date V isits Requested Visits Authorized [id number] Closed Specialty Services Required 01/13/2025 01/13/2026 9 9 * Imaging (Routine) - Authorized Specialty Diagnoses / Procedures Referred By Contac t Referred To Contact Radiology Diagnoses Encounter for screening mammogram for malignant neoplasm of breast Procedures BI Mammogram Screening Tomosynthesis Bilateral Maggi Sparrow MD [address] [place] [address] Phone: tel: fax: [address] Phone: tel: fax: Referral ID Status Reason Start Date Expiration Date V isits Requested Visits Authorized [id number] Authorized 01/12/2025 01/12/2026 1 1 Reason for Visit * Reason Comments Follow-up Encounter Details Date Type Department Care Team (Late st Contact Info) Description 01/12/2025 2:30 PM EDT Office Visit [facility] [address] [place] [address] Maggi Sparrow MD [address] [place] [address] Encounter for screening mammogram for malignant neoplasm of breast (Primary Dx); Dietary counseling; Exercise counseling; Class 3 severe obesity without serious comorbidity with body mass index (BMI) of 40.0 to 44.9 in adult, unspecified obesity type; Plantar wart of right foot; Acute bilateral low back pain without sciatica; Endometrial stripe increased; Primary insomnia; Moderate major depression (CMS/HCC); Mixed anxiety and depressive disorder Social History Tobacco Use Types Packs/Day Years Used Date Smoking Tobacco: Every Day Cigarettes Passive Smoke Exposure: Current Smokeless Tobacco: Never Alcohol Use Standard Drinks/Week Comments Never 0 (1 standard drink = 0.6 oz pur e alcohol) Depression Answer Date Recorded Patient Health Questionnaire-9 Score 13 01/12/2025 Patient Health Questionnaire-9 Score 13 01/12/2025 Last PHQ-9: Questionnaire Data Not on file 0 01/12/2025 Housing Stability Answer Date Recorded What is [...] Answer Date Recorded Patient Health Questionnaire-2 Score 4 01/12/2025 Comments Unknown Sex and Gender Information Value Date Recorded Sex Assigned at Female 02/13/2022 10:29 AM EDT Legal Sex Female 10:29 AM EDT Gender Identity Female 02/13/2022 10:29 AM EDT Sexual Orientation Straight 02/13/2022 10 :29 AM EDT documented as of this encounter Last Filed Vital Signs Vital Sign Reading Time Taken Comments Blood Pressure 114/74 01/12/2025 2:30 PM EDT Pulse 68 01/12/2025 2:30 PM EDT Temperature 37.1 C (98.7 F) 01/12/2025 2:30 PM EDT Respiratory Rate 20 01/12/2025 2:30 PM EDT Oxygen Saturation - - Inhaled Oxygen Concentration - - Weight 115 kg (253 lb 12.8 oz) 01/12/2025 2:30 P M EDT Height 154.9 cm (5' 1 ) 01/12/2025 2:30 PM EDT Body Mass Index 47.96 01/12/2025 2:30 PM EDT documented in this encounter Functional Status * Over the past 2 weeks, how often have you been bothered by any of the following problems? Question Answer Date of Assessment Author Patient Health Questionnaire-2 Score 4 01/12/2025 3:56 PM EDT Francisco Javier Young * Little interest or pleasure in doing things Answer Date of Assessment Author More than half the days 01/12/2025 3:56 PM EDT Francisco Javier Chase * Feeling down, depressed, or hopeless Answer Date of Assessment Author More than half the days 01/12/2025 3:56 PM EDT Francisco Javier Chase * Trouble falling or staying asleep, or sleeping too much Answer Date of Assessment Author Several days 01/12/2025 3:56 PM EDT Francisco Javier Alegria * Feeling tired or having little energy Answer Date of Assessment Author Several days 01/12/2025 3:56 PM EDT Francisco Javier Alegria * Poor appetite or overeating Answer Date of Assessment Author Several days 01/12/2025 3:56 PM EDT Francisco Javier Alegria * Feeling bad about yourself - or that you are a failure or have let yourself or your family down Answer Date of Assessment Author More than half the days 01/12/2025 3:56 PM EDT Francisco Javier Chase * Trouble concentrating on things, such as reading the newspaper or watching television Answer Date of Assessment Author More than half the days 01/12/2025 3:56 PM EDT Francisco Javier Chase * Moving or speaking so slowly that other people could have noticed? Or the opposite - being so fidgety or restless that you have been moving around a lot more than usual. Answer Date of Assessment Author Not at all 01/12/2025 3:56 PM EDT Francisco Javier Alegria * Thoughts that you would be better off or hurting yourself in some way Answer Date of Assessment Author More than half the days 01/12/2025 3:56 PM EDT Francisco Javier Chase * Patient Health Questionnaire-9 Score Answer Date of Assessment Author 13 01/12/2025 3:56 PM EDT Francisco Javier Alegria * How difficult have these problems made it for you to do your work, take care of things at home, or get along with other people? Answer Date of Assessment Author Very difficult 01/12/2025 3:56 PM EDT Francisco Javier Alegria * Over the last 2 weeks, how often have you been bothered by any of the following problems? Question Answer Date of Assessment Author Feeling nervous, anxious, or on edge 0 01/12/2025 3:56 PM EDT Francisco Javier Corbin Not being able to stop or control worrying 1 01/12/2025 3:56 PM EDT Francisco Javier Lewis Worrying too much about different things 1 01/12/2025 3:56 PM EDT Francisco Javier Corbin Trouble relaxing 1 01/12/2025 3:56 PM EDT Francisco Javier Chase Being so restless that it is hard to sit still 0 01/12/2025 3:56 PM EDT Francisco Javier Corbin Becoming easily annoyed or irritable 2 01/12/2025 3:56 PM EDT Francisco Javier Corbin Feeling afraid as if something awful might happen 2 01/12/2025 3:56 PM EDT Francisco Javier Mejia STAR-7 Total Score 7 01/12/2025 3:56 PM EDT Francisco Javier Corbin documented as of this encounter Progress Notes * Maggi Sparrow MD - 01/12/2025 2:30 PM EDT SUBJECTIVE: Violette Camacho is a 54 y.o. female who presents for chronic disease management. Denies recent illness, ER visit, or hospitalization. Acute Concerns: Musculoskeletal pain and spasms - Reports severe pain in legs and back, with onset after returning to work three days ago - Describes pain in the bottom of foot as feeling like it is about to fall off , has long-standingplantar wart there - Back pain described as horrible, with difficulty getting up stairs and out of bed - Noted a knot on back yesterday, suspected to be muscle spasm - Muscle spasms occurring frequently in legs and back - Takes hot showers in attempt to relieve pain - History of muscle spasms linked to increased physical activity at work Mental health concerns - Reports significant decline in mental health over the past few months, with worsening symptoms inthe last two weeks - Experiences episodes of extreme anger and self-harm - Describes persistent depressive symptoms, including constant crying, feelings of drowning and dying, and self-belittling thoughts - Expresses recurrent passive suicidal ideation, wishing for - History of prior psychiatric hospitalization, expresses fear of being institutionalized again - Avoids discussing mental health symptoms with family due to concern for their well-being - Notes increased irritability and short temper, especially with - Attributes some mood changes to menopause or perimenopause Menopausal symptoms - Reports ongoing perimenopausal symptoms for two years - Experiences hot flashes, especially around 4:00 AM, with sudden onset and rapid resolution, followed by feeling cold - Menstrual cycle described as irregular, with periods of amenorrhea lasting 6-8 months, followed by return of menses for 7 days - Reports monthly cramps with or without menstruation - Notes increased severity and pain with periods Plantar wart - Reports painful wart of R foot, causing significant pain with walking and lifting foot - Has used various treatments including liquids, pads, and scraping, with only temporary relief - 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, including scraping and discussion of surgery prior to pandemic - Unable to pursue surgical intervention due to inability to take extended time off work Gastroesophageal reflux disease (GERD) - History of reflux symptoms, currently managed with Nexium - Symptoms fluctuate, with some days asymptomatic and other days experiencing difficulty swallowing - Manages symptoms with medication and increased water intake Appetite and weight - Reports decreased appetite but no weight loss - Not actively attempting weight loss - Eating habits have changed drastically but weight remains stable Chronic Conditions and Plans: Perimenopausal since 08/04/23, period every 6-9 months Bleeding is bright red and brisk at time, changing pads every few hours. Last pap 11/2023 NILM/HPV neg 08/2023 Pelvic US 1. Thickened endometrium for postmenopausal woman with 7mm stripe 2. 2.0 cm simple right ovarian cyst. This is consistent with a benign simple cyst in a postmenopausal woman. No follow-up imaging recommended. 3. Normal left ovary. Intermittent chest pain 07/29/24 saw cardiology, Dr Washington, treadmill test normal Got dentures recently, able to chew solid foods. Drinking 3-4 cups of coffee or Pepsi daily Epigastric pain took abx for H pylori x 14 days September 2022, with neg test of cure Taking Famotidine. Gets diarrhea, unable to tolerate lots of heavy or greasy foods. Lost 6 pounds. Intermittent diarrhea and gassiness 10/02/23 barium swallow 1. Mildly disorganized esophageal peristalsis, otherwise unremarkable examination. 2. No evidence of reflux, hiatus hernia, stomach, duodenal, or proximal small bowel abnormality. 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 Avoid dietary triggers and late night snacking. Patient reports that she has no symptoms and would like not to take antibiotic therapy. Patient will be retested again in the next few months. 08/12/24 Gi, PPI/H2 davon for GERD 12/08/24 GI for GERD/IBS, continue Nexium in the moning and Famotadine at night Mood swings did not start with BHN or psychopharm because she wants everything to be in person in order to forma relationship, not phone or tele - has in person appointments now - denies SI/HI Rectal bleeding resolved with meds (nitroglycerin and hydrocortisone) Plantar wart on R foot bothering her Rahel-menopause, periods every 3-4 months since June 2021 feeling hot flashes and mood swings Health maintenance: Colon- declines, does not think she could handle the prep Pap 10/2020 NILM, HPV not performed; 07/2023 insufficient cells HPV neg; 11/2023 NILM HPV neg Mammo 11/2022, Birads 1, order placed 01/12/25 Imms due for zoster and PCV 20, declines Patient Active Problem List Diagnosis Date Noted PTSD (post-traumatic stress disorder) 01/13/2025 Endometrial stripe increased 01/13/2025 Moderate major depression (CMS/HCC) 01/12/2025 Acute bilateral low back pain without sciatica 03/17/2024 Plantar wart of right foot 02/08/2024 Vaginal itching 09/28/2023 Postmenopausal bleeding 09/03/2023 Primary insomnia 03/10/2023 Overweight 03/10/2023 Perimenopause 09/27/2022 Encounter for screening colonoscopy 09/27/2022 Gastroesophageal reflux disease without esophagitis 09/27/2022 Helicobacter positive gastritis 09/27/2022 Mixed anxiety and depressive disorder 09/22/2022 Median nerve entrapment 09/21/2022 [place] node 09/21/2022 Anxiety 05/07/2018 Impacted cerumen 03/04/2018 Acute conjunctivitis 02/21/2018 Acute maxillary sinusitis 02/21/2018 Surgical History[1] Social History Social History Narrative Works [employer] partner Review of Systems Constitutional: Negative. Respiratory: Negative. Cardiovascular: Negative. Genitourinary: Positive for vaginal bleeding. Musculoskeletal: Positive for arthralgias, back pain, gait problem and myalgias. Psychiatric/Behavioral: Positive for dysphoric mood, self-injury, sleep disturbance and suicidal ideas. The patient is nervous/anxious. OBJECTIVE: Vitals: 01/12/25 1430 BP: 114/74 BP Location: Left arm Patient Position: Sitting BP Cuff Size: Large adult Pulse: 68 Resp: 20 Temp: 98.7 ??F (37.1 ??C) TempSrc: Oral Weight: 253 lb 12.8 oz (115 kg) Height: 5' 1 (1.549 m) Physical Exam Vitals and nursing note reviewed. Constitutional: Appearance: Normal appearance. HENT: Head: Normocephalic and atraumatic. Cardiovascular: Rate and Rhythm: Normal rate and regular rhythm. Pulses: Normal pulses. Heart sounds: Normal heart sounds. Pulmonary: Effort: Pulmonary effort is normal. Breath sounds: Normal breath sounds. Musculoskeletal: Comments: Plantar wart R foot Skin: General: Skin is warm and dry. Neurological: General: No focal deficit present. Mental Status: She is alert and oriented to person, place, and time. Psychiatric: Mood and Affect: Mood normal. Behavior: Behavior normal. ASSESSMENT/PLAN Assessment & Plan Dietary counseling: - Ordered blood work to evaluate for metabolic abnormalities prior to considering weight loss medications. Class 3 severe obesity without serious comorbidity with body mass index (BMI) of 40.0 to 44.9 in adult, unspecified obesity type (HCC): - Obesity present, not actively seeking weight loss at this time. - Ordered blood work to assess for metabolic causes; discussed possible eligibility for injectable or oral weight loss medications if indicated by lab results. Plantar wart of right foot: - Recurrent painful plantar wart, previously treated with topical agents and cryotherapy; surgical excision discussed but deferred due to inability to take extended time off work. - Continued use of topical salicylic acid and pads; offered to assist with application during visit. Acute bilateral low back pain without sciatica: - Acute low back pain likely musculoskeletal in origin, associated with increased physical activityat new job and muscle spasms. - Prescribed muscle relaxant for nighttime use to alleviate muscle spasms and pain. Perimenopausal symptoms and mood disturbance: - Mood disturbance, including depressive symptoms, irritability, anger, self- injurious behavior, and passive suicidal ideation, exacerbated by perimenopausal hormonal fluctuations. - Prescribed paroxetine (Paxil) for mood stabilization and depressive symptoms; offered referral totherapist for ongoing mental health support; discussed crisis resources including 988 text line. Prescription - Paroxetine (Paxil), as antidepressant and mood stabilizer for perimenopausal mood swings - Unspecified muscle relaxant, nightly for muscle spasms and back knots Problem List Items Addressed This Visit Mixed anxiety and depressive disorder Relevant Medications PARoxetine (Paxil) 10 MG tablet Primary insomnia Relevant Medications PARoxetine (Paxil) 10 MG tablet Plantar wart of right foot Relevant Medications Salicylic Acid 40 % pads Acute bilateral low back pain without sciatica Moderate major depression (CMS/HCC) Current Assessment & Plan Severe symptoms currently, including passive SI, wanting pain to end Francisco Javier COX in with patient immediately after my appointment for further evaluate and connection to therapy Relevant Medications PARoxetine (Paxil) 10 MG tablet Endometrial stripe increased Overview Seen 08/2023, no biopsy done at 11/[address] Davis due to pt not able to tolerate procedure Current Assessment & Plan Referral replaced to wrapper stitcher for EMB Relevant Orders Referral to Obstetrics / Gynecology Other Visit Diagnoses Encounter for screening mammogram for malignant neoplasm of breast - Primary Relevant Orders BI Mammogram Screening Tomosynthesis Bilateral Dietary counseling Exercise counseling Class 3 severe obesity without serious comorbidity with body mass index (BMI) of 40.0 to 44.9 in adult, unspecified obesity type Relevant Orders Hemoglobin A1c Comprehensive Metabolic Panel TSH W/Reflex to FT4 Follow Up: 3 months or sooner prn Allergies[2] Current Medications[3] British Translation: Patient is bilingual and declines translation services [1] Past Surgical History: Procedure Laterality Date PROSTHODONTIC PROCEDURE [2] Allergies Allergen Reactions Penicillins Turns red Other reaction(s): redness all over body, with burning sensation [3] Current Outpatient Medications: cyclobenzaprine (Flexeril) 5 MG tablet, Take 1 tablet (5 mg) by mouth at bedtime., Disp: 30 tablet,Rfl: 3 D3 Super Strength 50 MCG (2000 UT) capsule, Take by mouth Once per day., Disp: , Rfl: esomeprazole (NexIUM) [address] capsule, Take 40 mg by mouth Once per day., Disp: , Rfl: PARoxetine (Paxil) 10 MG tablet, Take 1 tablet (10 mg) by mouth in the morning., Disp: 90 tablet, Rfl: 3 Salicylic Acid 40 % pads, Apply 1 Pad topically if needed at bedtime (wart)., Disp: 30 each, Rfl: 3 Spacer/Aero-Holding Chambers (AeroChamber Holding Chamber) device, 1 each 1 (one) time if needed (Use with albuterol inhaler as instructed) for up to 1 dose., Disp: 1 each, Rfl: 0 documented in this encounter Miscellaneous Notes * Assessment & Plan Note - Maggi Sparrow MD - 01/13/2025 10:06 AM EDT Associated Problem(s): Moderate major depression (CMS/HCC) (HCC) Severe symptoms currently, including passive SI, wanting pain to end BH, Francisco Javier in with patient immediately after my appointment for further evaluate and connection to therapy * Assessment & Plan Note - Maggi Sparrow MD - 01/13/2025 10:02 AM EDT Associated Problem(s): Endometrial stripe increased Referral replaced to wrapper stitcher for EMB documented in this encounter Plan of Treatment Scheduled Orders Name Type Priority Associated Diagnoses Orde r Schedule BI Mammogram Screening Tomosynthesis Bilateral Imaging Routine Encounter for screening mammogram for malignant neoplasm of breast Expected: 01/12/2025, Expires: 03/14/2026 Hemoglobin A1c Lab Routine Class 3 severe obesity without serious comorbidity with body mass index (BMI) of 40.0 to 44.9 in adult, unspecified obesity type Expected: 01/12/2025 (Approximate), Expires: 01/12/2026 Comprehensive Metabolic Panel Lab Routine Class 3 severe obesity without serious comorbidity with body mass index (BMI) of 40.0 to 44.9 in adult, unspecified obesity type Expected: 01/12/2025 (Approximate), Expires: 01/12/2026 TSH W/Reflex to FT4 Lab Routine Class 3 severe obesity without serious comorbidity with body mass index (BMI) of 40.0 to 44.9 in adult, unspecified obesity type Expected: 01/12/2025 (Approximate), Expires: 01/12/2026 Scheduled Referrals Name Type Priority Associated Diagnoses Order Schedule Referral to Obstetrics / Gynecology Outpatient Referral Routine Endometrial stripe increased Expected: 01/13/2025 (Approximate), Expires: 01/13/2026 documented as of this encounter Visit Diagnoses Diagnosis Encounter for screening mammogram for malignant neoplasm of breast- Primary Dietary counseling Dietary surveillance and counseling Exercise counseling Class 3 severe obesity without serious comorbidity with body mass index (BMI) of 40.0 to 44.9 in adult, unspecified obesity type (HCC) Plantar wart of right foot Plantar wart Acute bilateral low back pain without sciatica Endometrial stripe increased Nonspecific (abnormal) findings on radiological and other examination of genitourinary organs Primary insomnia Persistent disorder of initiating or maintaining sleep Moderate major depression (CMS/HCC) (HCC) Major depressive disorder, single episode, moderate Mixed anxiety and depressive disorder Dysthymic disorder documented in this encounter Additional Health Concerns Assessment Noted Time PHQ-9 Depression Total Score: 13 025 3:56 PM EDT documented as of this encounter Care Teams Artifacts Conservator Relationship Specialty Start Date End Date Maggi Sparrow MD [address] [place] [id number] PCP - General Family Medicine 02/26/20 documented as of this encounter
--- OUTSIDE RECORDS SUMMARY | 2025-01-16 12:41 | XMS_ITS | Encounter Summary ---
Author Organization [employer] Address [address] [facility] [address] [place] [address] Care Team Providers Care Wrapper Caser Name Role Phone Maggi Sparrow MD Primary Care Provider Reason for Visit * Reason Onset Date Comments Med Refill 07/17/2023 Encounter Details Date Type Department Care Team ([facility] st Contact Info) Description 07/17/2023 Refill [facility] [address] [place] [address] Maggi Sparrow MD [address] [place] [address] Primary insomnia Social History Tobacco Use Types [...] documented as of this encounter Care Teams Wrapper Caser Relationship Specialty Start Date End Date Maggi Sparrow MD [address] [place] [id number] PCP - General Family Medicine 02/26/20 documented as of this encounter
--- OUTSIDE RECORDS SUMMARY | 2025-01-16 12:41 | XMS_ITS | Encounter Summary ---
Author Organization [employer] Address [address] [facility] [address] [place] [address] Care Team Providers Care Shop Teacher Name Role Phone Maggi Sparrow MD Primary Care Provider [phone] Encounter Details Date Type Department Care Team ([facility] st Contact Info) Description 10/21/2024 Orders Only [facility] [address] [place], [place] [phone] Maggi Sparrow MD [address] [place], [place] [phone] Situational anxiety (Primary Dx) Social History Tobacco Use Types [...] as of this encounter Visit Diagnoses Diagnosis Situational anxiety- Primary documented in this encounter Additional Health Concerns Assessment Noted Time PHQ-9 Depression Total Score: 0 08/31/19 24 3:19 PM EDT documented as of this encounter Care Teams Shop Teacher Relationship Specialty Start Date End Date Maggi Sparrow MD [address] [place] [id number] PCP - General Family Medicine 02/26/20 documented as of this encounter
--- OUTSIDE RECORDS SUMMARY | 2025-01-16 12:42 | XMS_ITS | Encounter Summary ---
Author Organization [employer] Address [address] [facility] [address] [place] [address] Care Team Providers Care Board Operator Name Role Phone Maggi Sparrow MD Primary Care Provider [phone] Encounter Details Date Type Department Care Team ([facility] st Contact Info) Description 09/23/2023 Orders Only [facility] [address] [place], [place] [phone] Maggi Sparrow MD [address] [place], [place] [phone] Postmenopausal bleeding (Primary Dx) Social History Tobacco [...] documented as of this encounter Care Teams Board Operator Relationship Specialty Start Date End Date Maggi Sparrow MD [address] [place] [id number] PCP - General Family Medicine 02/26/20 documented as of this encounter
--- OUTSIDE RECORDS SUMMARY | 2025-01-16 12:42 | XMS_ITS | Encounter Summary ---
Author Organization [employer] Address [address] [place] [address] Care Team Providers Care Advice Nurse Name Role Phone Maggi Sparrow MD Primary Care Provider [phone] Encounter Details Date Type Department Care Team (Latest Contact Info) Description 01/12/2025 Travel Social History Tobacco Use Types Packs/Day Years [...] AM EDT documented as of this encounter Functional Status * Over the past 2 weeks, how often have you been bothered by any of the following problems? Question Answer Date of Assessment Author Patient Health Questionnaire-2 Score 4 01/12/2025 3:56 PM EDT Francisco Jaiver Young * Little interest or pleasure in [...] 01/12/2025 3:56 PM EDT Francisco Javier Corbin Worrying too much about different things 1 [...] Javier Corbin documented as of this encounter Plan of Treatment Not on file documented as of this encounter Visit Diagnoses Not on filedocumented in this encounter Additional Health Concerns Assessment Noted Time PHQ-9 Depression Total Score: 13 01/12/2 025 3:56 PM EDT documented as of this encounter Care Teams Advice Nurse Relationship Specialty Start Date End Date Maggi Sparrow MD [address] [place] [address] PCP - General Family Medicine 02/26/20 documented as of this encounter
--- OUTSIDE RECORDS SUMMARY | 2025-01-16 12:42 | XMS_ITS | Encounter Summary ---
Author Organization [facility] Address [address] [facility] [address] [place] [phone] Phone Care Team Providers Care Assistant Shift Supervisor Name Role Phone Pcp, Unknown Primary Care Provider Unavailabl e Encounter Details Date Type Department Care Team (Late st Contact Info) Description 09/04/2021 Procedure Pass [facility], Ct Scan - [address] [address] Social History Tobacco Use Types Packs/Day Years [...] 12:47 PM EDT Anna Chatterjee RN * [place] Suicide Severity Rating Scale (Screener/Recent Self-Report) Question [...] on filedocumented in this encounter Care Teams Assistant Shift Supervisor Relationship Specialty Start Date End Date Pcp, Unknown PCP - General 09/04/21 documented as of this encounter Additional Source Comments The information contained in this document represents components of the legal health record. It is not the complete legal health record.[facility]
--- OUTSIDE RECORDS SUMMARY | 2025-01-16 12:42 | XMS_ITS | Clinical Summary ---
Author Organization [facility] Address [address] [facility] [address] [place] [phone] Phone Care Team Providers Care Welt Sewer Name Role Phone Pcp, Unknown Primary Care Provider Unavailabl e Allergies Active Allergy Reactions Criticality Noted Date Comments Penicillins 09/04/2021 Medications methylPREDNISol one (MEDROL DOSEPACK) 4 mg tablet follow package directions 21 tablet Active Social History Tobacco Use Types Packs/Day Years Used Date Smoking Tobacco: Never Assessed Education Answer Date Recorded Are you interested in more education? Not on alfredito e 08/12/2022 Are you concerned about learning? Not on file 08/12/2022 No 08/12/2022 No 08/12/2022 Digital Access Answer Date Recorded No 09/12/2022 No 09/12/2022 Reliable internet access at home? Not on file 09/12/2022 Device with a working camera? Not on file Comments No Sex and Gender Information Value Date Recorded Sex Assigned at Not on file Legal Sex Female 12:41 PM EDT Gender Identity Not on file Sexual Orientation Not on file Last Filed Vital Signs Vital Sign Reading Time Taken Comments Blood Pressure 125/82 12/16/2021 1:58 PM EDT Pulse 85 12/16/2021 1:58 PM EDT Temperature 36.2 C (97.2 F) 12/16/2021 1:58 PM EDT Respiratory Rate 19 12/16/2021 1:58 PM EDT Oxygen Saturation 98% 12/16/2021 1:58 PM EDT Inhaled Oxygen Concentration - - Weight 102.1 kg (225 lb) 09/04/2021 12:42 PM EDT Height 175.3 cm (5' 9 ) 09/04/2021 12:42 PM EDT Body Mass Index 33.23 09/04/2021 12:42 PM EDT Plan of Treatment Not on file Medical Devices Not on file Insurance [facility] C3 ACO Care Teams Welt Sewer Relationship Specialty Start Date End Date Pcp, Unknown PCP - General 09/04/21 Additional Source Comments The information contained in this document represents components of the legal health record. It is not the complete legal health record.[facility]
--- OUTSIDE RECORDS SUMMARY | 2025-01-16 12:42 | XMS_ITS | Clinical Summary ---
Author Organization [employer] Address [address] [facility] 7[address] [place] [address] Care Team Providers Care Material Handler Loader Name Role Phone Maggi Sparrow MD Primary Care Provider [phone] Allergies Active Allergy Reactions Criticality Noted Date Comments Penicillins 06/02/2015 Turns red Other reaction(s): redness all over body, with burning sensation Medications * This document contains information received from the source organization and may not represent a complete record from that organization. D3 Super Strength 50 MCG (1999) capsule Take by mouth Once per day. 4 Active esomeprazole (NexIUM) [address] capsule Take 40 mg by mouth Once per day. 4 Active Spacer/Aero-Holdi ng Chambers (AeroChamber Holding Chamber) device 1 each 1 (one) time if needed (Use with albuterol inhaler as instructed) for up to 1 dose. 1 each 4 Active cyclobenzaprine (Flexeril) 5 MG tablet Take 1 tablet (5 mg) by mouth at bedtime. 30 tablet 3 5 026 Active Salicylic Acid 40 % pads Apply 1 Pad topically if needed at bedtime (wart). 30 each 3 5 Active PARoxetine (Paxil) 10 MG tablet Take 1 tablet (10 mg) by mouth in the morning. 90 tablet 3 5 026 Active famotidine (Pepcid) 40 MG tablet Take 1 tablet (40 mg) by mouth in the morning. 90 tablet 1 3 025 Discontin ued(Thera py completed ) albuterol 108 (90 Base) MCG/ACT inhaler Inhale 2 puffs every 6 (six) hours if needed for wheezing. 18 g 11 4 025 Discontin ued(Thera py completed ) traZODone (Desyrel) 50 MG tabletIndications :Primary insomnia TAKE 1 TABLET BY MOUTH AT BEDTIME 90 tablet 1 4 025 Discontin ued(Thera py completed ) bismuth subsalicylate (Pepto Bismol) 262 MG chewable tablet TAKE 2 TABLETS BY MOUTH FOUR TIMES DAILY FOR FOURTEEN DAYS 4 025 Discontin ued(Thera py completed ) pantoprazole (ProtoNix) 20 MG EC tablet TAKE 1 TABLET BY MOUTH TWICE DAILY FOR FOURTEEN DAYS 4 025 Discontin ued(Thera py completed ) tetracycline 500 MG capsule TAKE 1 CAPSULE BY MOUTH EVERY SIX HOURS FOR FOURTEEN DAYS 4 025 Discontin ued(Thera py completed ) metroNIDAZOLE (Flagyl) 500 MG tablet TAKE 1 TABLET BY MOUTH THREE TIMES DAILY FOR FOURTEEN DAYS 4 025 Discontin ued(Thera py completed ) cyclobenzaprine (Flexeril) 10 MG tabletIndications :Acute bilateral low back pain without sciatica Take 1 tablet (10 mg) by mouth 3 times daily for 10 days. 30 tablet 4 025 Discontin ued(Thera py completed ) lidocaine (Lidoderm) 5 % patchIndications: Acute bilateral low back pain without sciatica Apply 1 patch topically Once per day. Remove & discard patch within 12 hours or as directed by MD. 30 patch 1 4 025 Discontin ued(Thera py completed ) LORazepam (Ativan) 1 MG tabletIndications :Situational anxiety Take 1 tablet (1 mg) by mouth 1 (one) time for 1 dose. 1 tablet 5 025 Discontin ued(Thera py completed ) Active Problems Problem Noted Date Diagnosed Date PTSD (post-traumatic stress disorder) 01/13/2025 Endometrial stripe increased 01/13/2025 Overview (01/13/2025): Seen 08/2023, no biopsy done at 11/[address] Davis due to pt not able to tolerate procedure Assessment & Plan (01/13/2025 10:02 AM EDT): Referral replaced to sandwich artist for EMB Moderate major depression (CMS/HCC) 01/12/2025 Assessment & Plan (01/13/2025 10:06 AM EDT): Severe symptoms currently, including passive SI, wanting pain to end BH, Francisco Javier in with patient immediately after my appointment for further evaluate and connection to therapy Acute bilateral low back pain without sciatica 1 05/18/2023 Assessment & Plan (03/17/2024 12:35 PM EST): Apply heat on affected area If symptoms persist or worse please reports back Plantar wart of right foot 02/08/2024 Vaginal itching 09/28/2023 Assessment & Plan (09/28/2023 12:54 PM EDT): -suspicious for lichen sclerosis -will refer to [facility] sandwich artist for biopsy before initiating treatment -vaginal swab obtained for BV and yeast testing. Will treat accordingly if positive -vaginal health reviewed. Discouraged against use of soap intravaginally as to not alter vaginal pH -may take benadryl for itching until evaluated by sandwich artist. Postmenopausal bleeding 09/03/2023 Assessment & Plan (11/15/2023 4:25 PM EDT): Patient request to procedure to stop when she was being sounded, complied with patient and stopped procedure. She reports she didn't tolerate the sound, at this moment will be better served in [employer] office, could consider sedation to assist with [...] positive gastritis 09/27/2022 Overview (09/27/2022): EGD 12/2018 [facility]: Esophagitis with No Niko's + Moderate Active [...] [place]. Mother gave her away to the [facility] and was in Correction from age 14 until 20 y/o. She reported sxs such as lack of motivation, depressed, sleep disturbance, little energy, poor appetite, trouble with concentration, thoughts without plan or intention, feeling nervous, irritability, fearful. She denies SI, HI, AVH or self-harm at this time. Symptoms do not appear to be due to substance use or other medical disorder. 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 Patient will benefit from Ind. Therapy and Medication Management. At this time Violette Camacho meets criteria for Visit Diagnoses: Problem List Items Addressed This Visit Other Mixed anxiety and depressive disorder Patient ready to address current needs Yes Strengths include Family support, and willing to engage in services. PLAN: 1. Follow up with [facility]: Recommended for follow-up: 10/06/22 at 1pm 2. [...] syndrome 07/16/2015 11/13/2022 Obesity 07/16/2015 03/05/2023 Encounters * This document contains information received from the source organization and may not represent a complete record from that organization. Date Type Department Care Team Description 01/12/2025 2:30 PM EDT Office Visit [address] [address] Maggi Sparrow MD Encounter for screening mammogram for malignant neoplasm of breast (Primary Dx); Dietary counseling; Exercise counseling; Class 3 severe obesity without serious comorbidity with body mass index (BMI) of 40.0 to 44.9 in adult, unspecified obesity type; Plantar wart of right foot; Acute bilateral low back pain without sciatica; Endometrial stripe increased; Primary insomnia; Moderate major depression (CMS/HCC); Mixed anxiety and depressive disorder 01/12/2025 Travel 12/25/2024 8:30 AM EDT Office Visit [facility] [address] [place] [address] Beny Bliss DMD Full coverage crown needed for root canal-treated tooth (Primary Dx) 11/26/2024 8:00 AM EDT Office Visit [facility] [address] [place] [address] Beny Bliss DMD Full coverage crown needed for root canal-treated tooth (Primary Dx) 11/06/[address] [address] Maggi Sparrow MD Appt booked with pcp 10/30/2024 8:00 AM EDT Office Visit [facility] [address] [place] [address] Beny Bliss DMD Symptomatic irreversible pulpitis (Primary Dx) 10/21/2024 Orders Only [address] [address] Maggi Sparrow MD Situational anxiety (Primary Dx) from Last 3 Months Immunizations Immunization Administration Dates Next Due Influenza injectable quadriv [...] 20 01/12/2025 2:30 PM EDT Oxygen Saturation 98% 04/15/2024 8:41 AM EST Inhaled Oxygen Concentration - - Weight 115 kg (253 lb 12.8 oz) 01/12/2025 2:30 P M EDT Height 154.9 cm (5' 1 ) 01/12/2025 2:30 PM EDT Body Mass Index 47.96 01/12/2025 2:30 PM EDT Plan of Treatment Health Maintenance Due Date Last Done Comments CT Colonography 1972 Colonoscopy 1972 Colorectal Cancer Screening 1972 FIT DNA/Cologuard 1972 FIT 1972 FOBT 1972 HIV Screening 1972 Sigmoidoscopy 1972 Disability Screening 1972 Alcohol/Substance Use Screening 1984 Family Planning (PISQ) 1987 Hepatitis B Vaccines (1 of 3 - 19+ 3-dose series) 1991 Pneumococcal Vaccine: 50+ Years (1 of 2 - PCV) 1991 Zoster Vaccines (1 of 2) 2022 SDOH Screening 09/23/2023 09/22/2022 COVID-19 Vaccine (3 - season) 2024 09/15/2020, 08/18/2020 Influenza Vaccine (#1) 2024 , 03/23/2020, 01/15/2018, Additional history exists Dental Oral Exam 01/02/2025 07/01/2024, 06/2022, 03/07/2022, Additional history exists Dental Prophylaxis 01/02/2025 07/01/2024, 11/23/2015 Mammogram 01/10/2025 01/11/2024, 11/15, 10/27/2020, Additional history exists Dental X-Ray: Full Mouth 03/08/2025 03/07/2022, 04/0 10/2015 Dental X-Ray: Bitewings 07/02/2025 07/02/19 25, 03/07/2022, 07/22/2015 Depression Monitoring 07/12/2025 01/12/2025, 025 Tobacco Screening 01/12/2026 01/12/2025 DTaP/Tdap/Td Vaccines (2 - Td or Tdap) [...] patient's age to complete this topic Meningococcal B Vaccine Aged Out No l onger eligible based on patient's age to complete [...] Procedure Name Priority Date/Time Associated Diagnosis Comments CASE PRESENTATION, DETAILED AND EXTENSIVE TREATMENT PLANNING Routine 12/25/2024 8:30 AM EDT Full coverage crown needed for root canal-treated tooth 19 CROWN - PORCELAIN/CERAMIC Routine 12/25/2024 8:30 AM EDT Full coverage crown needed for root canal-treated tooth CASE PRESENTATION, DETAILED AND EXTENSIVE TREATMENT PLANNING Routine 11/26/2024 8:00 AM EDT Full coverage crown needed for root canal-treated tooth 19 CROWN PREP Routine 11/26/2024 8:00 AM EDT Full coverage crown needed for root canal-treated tooth 19 CORE BUILDUP, INCL ANY PINS WHEN REQ Routine 11/26/2024 8:00 AM EDT Full coverage crown needed for root canal-treated tooth CASE PRESENTATION, DETAILED AND EXTENSIVE TREATMENT PLANNING Routine 10/30/2024 8:00 AM EDT Symptomatic irreversible pulpitis 19 ENDODONTIC THERAPY, MOLAR TOOTH Routine 10/30/2024 8:00 AM EDT Symptomatic irreversible pulpitis Full PROPHYLAXIS - ADULT Routine 07/01/2024 11:00 AM EDT Dental caries Full coverage crown needed for root canal-treated tooth BITEWINGS - 4 RADIOGRAPHIC IMAGES Routine 07/01/2024 11:00 AM EDT Dental caries Full coverage crown needed for root canal-treated tooth PERIODIC ORAL EVALUATION - ESTABLISHED PATIENT Routine 07/01/2024 11:00 AM EDT Dental caries Full coverage crown needed for root canal-treated tooth BI MAMMOGRAM SCREENING TOMOSYNTHESIS BILATERAL Routine 01/11/2024 [...] Recently Relevant to Health Maintenance Results * BI Mammogram Screening Tomosynthesis Bilateral (01/11/2024 11:40 AM EDT) Anatomical Region Laterality Modality Breast Bilateral Mammography 01/11/2024 11:4 0 AM EDT Narrative 01/23/2024 3:20 PM EDT [facility] [address] [place], [place] [address] Mammography Report Signed Patient: Violette Camacho V MR#: [id number] : 1970 Acct:[id number] Age/Sex: 53 / F ADM Date: 01/11/24 Loc: HO.MAMMO Attending Dr: Maggi Sparrow MD Ordering Physician: Maggi Sparrow Results: 1Negative Date of Service: 01/11/24 Follow Up: 1 Year From Orig inal Mammogram Procedure(s): MM tomosynthesis screening BI Accession Number(s): [id number] cc: Maggi Sparrow EXAMINATION: MM SCREENING DIGITAL [...] 01/23/24 1516 DD/ 1140 TD/TT: 01/11/24 1159 Chief Compliance Officer: Procedure Note Donotuseinterpreter, Image - 01/23/2024 [facility] [address] [place] [address] Dr. Kim, [place] [address] Mammography Report Signed Patient: Violette Camacho VMR#: [id number] : 1970Acct:[id number] Age/Sex: 53 / FADM Date: 01/11/24 Loc: JIMENEZ Attending Dr: Maggi Sparrow MD Ordering Physician: Calixto Sparrowults: 1Negative Date of Service: 01/11/24Follow Up: 1 Year From Orig inal Mammogram Procedure(s): MM tomosynthesis screening BI Accession Number(s): [id number] cc: Maggi Sparrow EXAMINATION: MM SCREENING DIGITAL [...] Kristie Mauricio DO 01/23/2024 03:16 PM EDT Dictated By: Kristie Mauricio DO Signed By: <Electronically signed by Kristie Mauricio DO in OV> 01/23/24 1516 DD/ 1140 TD/TT: 01/11/24 1159 Chief Compliance Officer: Maggi Sparrow MD IMG BI PROCEDURES Final Result * Pap Smear (11/15/2023 4:20 PM EDT) SOURCE: SEE NOTE [facility] Comment:None given Report Status: [facility] Clinical Information: SEE NOTE [facility] Comment:None given LMP: SEE NOTE [facility] Comment:NONE GIVEN Prev. PAP: SEE NOTE [facility] Comment:NONE GIVEN Prev. BX: SEE NOTE [facility] Comment:NONE GIVEN Statement Of Adequacy: SEE NOTE [facility] Comment:Satisfactory for edith luation.Endocervical/transformation zone componentpresent. General Categorization: [facility] Interpretation/Result: SEE NOTE [facility] Comment:Cytology Results: Ne gative for intraepitheliallesion or malignancy. Cytology Comment SEE NOTE [facility] Comment:This Pap test has be en evaluated with computerassisted technology. Second Butler: SEE NOTE [facility] Comment:CMB, CT(ASCP) CT Scr eening Location: [facility] [address] preparation performed at: [facility], [address] [place] [id number] CLIA No. [id number] Review Second Butler: [facility] Pathologist [facility] PAP Infection [facility] See Note SEE NOTE [facility] Comment:EXPLANATORY NOTE:The Pap is a screening test for cervical cancer. It isnot a diagnostic test and is subject to false negativeand false positive results. It is most reliable when asatisfactory sample, regularly obtained, is submittedwith relevant clinical findings and history, and whenthe Pap result is evaluated along with historic andcurrent clinical information.THIS TEST WAS PERFORMED AT:[facility] [address] [id number] MERATI,MD Pap Vial Vaginal structure / Unknown 11/15/2023 4:20 PM EDT 11/15/2023 6:14 PM EDT Narrative [facility] - 11/21/2023 3:04 PM EDT SEE SCANNED RESULTS IN EMR us Keren Davis MD LAB PATHOLOGY ORDERABLES Ne jerman Result [facility] [address] [place] [address] [phone] * HPV mRNA E6/E7 w/Reflex to HPV Genotypes 16, 18/45 (11/15/2023 4:20 PM EDT) HPV nRNA E6/E7 Not Detected Not Detected [facility] Comment:Methodology: Transcr iption-Mediated AmplificationThis assay detects E6/E7 viral messenger RNA (mRNA) from 14high-risk HPV types (16,18,31,33,35,39,45,51,52,56,58,59,66,68).Cervical sources are required for HPV testing.If a vaginal source from a patient who has had atotal hysterectomy with removal of cervix wassubmitted, please contact the testing laboratoryfor alternative testing options.For additional information, please refer tohttp://education.NuAx/faq/HMJ458c9(This link if provided for information/educational purposes only.)THIS TEST WAS PERFORMED AT:[facility] [place] [id number] CURIEL MD HPV mRNA E6/E7 [facility] HPV 16 RNA [facility] HPV 18/45 RNA [facility] Vaginal Fluid Cervix uteri structure / Unknown 11/15/2023 4:20 PM EDT 11/15/2023 6:14 PM EDT Narrative [facility] - 11/21/2023 3:05 PM EDT Collection Date: [id number] by: MAGO Contreras: Cervix us Keren Davis MD LAB CYTOLOGY ORDERABLES Final Result [facility] [address] [place] [address] [phone] * (ABNORMAL) Lipid Panel, Standard (03/06/2023 8:03 AM EST) Triglycerides 68 <150 mg/dL [facility] Comment:Desirable Triglyceri de: less than 150 mg/dLBorderline High Triglyceride 150-199 mg/dLHigh Triglyceride: 200-499 mg/dLVery High Triglyceride: greater than or equal to 5OO mg/dL Cholesterol 171 <200 mg/dL [facility] Comment:Desirable Cholestero l: less than 200 mg/dLBorderline High Cholesterol: 200-239 mg/dLHigh Cholesterol: greater than 239 mg/dL LDL Cholesterol Calculated 115(H) <100 mg/dL [facility] Comment:Desirable LDL: less than 100 mg/dLNear Optimal/Above Optimal LDL: 110- 129 mg/dLBorderline High LDL: 130-159 mg/dLHigh LDL: 160-189 mg/dLVery High LDL: greater than or equal to 190 mg/dL HDL Cholesterol 43 >40 mg/dL [facility] Comment:Desirable HDL: great er than 40 mg/dL Note: This HDL assay may give artificially low results in patients with liver disease. Blood Venous blood specimen / Unknown 03/06/2023 8:03 AM EST 03/06/2023 11:16 AM EST Maggi Sparrow MD LAB BLOOD ORDERABLES Final Res ult Performing Organization Address [facility] Co de Phone Number [facility] [address] [place] [address] [phone] * HEPATITIS C AB W/REFL TO HCV RNA, QN, PCR (09/20/2020 9:37 AM EDT) HEPATITIS C ANTIBODY NON-REACT JOHN NON-REACT JOHN [facility] INDEX 0.03 <1.00 [facility] Comment: HCV antibody was non-reactive. There is no laboratory evidence of HCV infection. In most cases, no further action is required. However, if recent HCV exposure is suspected, a test for HCV RNA (test code 48619) is suggested. For additional information please refer to http://education.NuAx/faq/KSC87h4 (This link is being provided for informational/ educational purposes only.) 09/20/2020 9:37 AM EDT Maggi Sparrow MD HISTORICAL/NON ORDERABLE LABS Final Result [facility] [address] from Last 3 Months or Most Recently Relevant to Health Maintenance [facility] [employer] [place] Care Teams Material Handler Loader Relationship Specialty Start Date End Date Maggi Sparrow MD [address] [place] [address] PCP - General Family Medicine 02/26/20
--- OUTSIDE RECORDS SUMMARY | 2025-01-16 12:42 | XMS_ITS | Encounter Summary ---
Author Organization [employer] Address [address] [facility] 7[address] [place] [address] Care Team Providers Care Strategic Marketing Associate Name Role Phone Maggi Sparrow MD Primary Care Provider [phone] Reason for Visit * Reason Onset Date Comments Appointment 10/11/2022 Encounter Details Date Type Department Care Team ([facility] st Contact Info) Description 10/11/2022 Telephone [facility] [address] [place] [address] Beny Bliss, DMD [address] [place] [address] Appointment Social History Tobacco Use Types Packs/Day [...] documented as of this encounter Care Teams Strategic Marketing Associate Relationship Specialty Start Date End Date Maggi Sparrow MD [address] [place] [address] PCP - General Family Medicine 02/26/20 documented as of this encounter
--- OUTSIDE RECORDS SUMMARY | 2025-01-16 12:42 | XMS_ITS | Encounter Summary ---
Author Organization [employer] Address [address] [facility] [address] [place] [address] Care Team Providers Care Sample Coordinator Name Role Phone Maggi Sparrow MD Primary Care Provider [phone] Encounter Details Date Type Department Care Team (Late st Contact Info) Description 10/09/2022 Abstract [facility] [address] [place] [address] Beny Bliss, DMD [address] [place] [address] Social History Tobacco Use Types Packs/Day Years [...] of Assessment Author Patient Health Questionnaire-2 Score 6 09/15 1:04 PM EDT Chito Herrera * If you checked off any problems on this questionnaire so far, Question Answer Date of Assessment Author How difficult have these problems made it for you to do your work, take care of things at home, or get along with other people? Somewhat difficult 10/10/2022 1:04 PM EDT Chito Herrera * Over the last 2 weeks, how often have you been bothered by any of the following problems? Question Answer Date of Assessment Author Feeling nervous, anxious, or on edge 1 09/15 1:05 PM EDT Chito Herrera Not being able to stop or co ntrol worrying 3 10/10/2022 1:05 PM EDT Chito Herrera Worrying too much about diff erent things 3 10/10/2022 1:05 PM EDT Chito Herrera Trouble relaxing 3 10/10/2022 1:05 PM EDT Chito Talamantes Being so restless that it is hard to sit still 3 10/10/2022 1:05 PM EDT Chito Herrera Becoming easily annoyed or irritable 3 09/15 1:05 PM EDT Chito Herrera Feeling afraid as if somethi ng awful might happen 3 10/10/2022 1:05 PM EDT Chito Herrera STAR-7 Total Score 19 10/10/2022 1:05 PM EDT Chito Herrera * Over the past 2 weeks, how often have you been bothered by any of the following problems? Question Answer Date of Assessment Author Little interest or pleasure in doing things Nearly every day 10/10/2022 1:04 PM EDT Chito Herrera Feeling down, depressed, or hopeless Nearly every day 10/10/2022 1:04 PM EDT Chito Herrera Trouble falling or staying asleep, or sleeping too much Nearly every day 10/10/2022 1:04 PM EDT Chito Herrera Feeling tired or having little energy Nearly every day 10/10/2022 1:04 PM EDT Chito Herrera Poor appetite or overeating Nearly every day 1:04 PM EDT Chito Herrera Feeling bad about yourself - or that you are a failure or have let yourself or your family down Not at all 10/10/2022 1:04 PM EDT Chito Herrera Trouble concentrating on things, such as reading the newspaper or watching television Not at all 10/10/2022 1:04 PM EDT Chito Herrera Moving or speaking so slowly that other people could have noticed? Or the opposite - being so fidgety or restless that you have been moving around a lot more than usual. More than half the days 10/10/2022 1:04 PM EDT Chito Herrera Thoughts that you would be better off or hurting yourself in some way Nearly every day 10/10/2022 1:04 PM EDT Chito Herrera Patient Health Questionnaire-9 Score 20 10/10/2022 1:04 PM EDT Chito Herrera documented as of this encounter Plan of Treatment Not on file documented as of this encounter Visit Diagnoses Not on filedocumented in this encounter Additional Health Concerns Assessment Noted Time PHQ-9 Depression Total Score: 14 023 11:54 AM EDT documented as of this encounter Care Teams Sample Coordinator Relationship Specialty Start Date End Date Maggi Sparrow MD [address] [place] [address] PCP - General Family Medicine 02/26/20 documented as of this encounter
--- OUTSIDE RECORDS SUMMARY | 2025-01-16 12:42 | XMS_ITS | Patient Health Record ---
Author Organization [facility] Address [address] [place] [address] Support Name Relationship Address Phone Jeromy Cordero Emergency Contact [address] [place] [phone] KATHERIN RUSS Guarantor Unknown [phone] Care Team Providers Care Steel Molder Name Role Phone Bryan (DO NOT USE) [facility] Primary Care Provi aisha Antolin Bowden Unavailable [phone] Allergies Allergen (clinical drug ingredient) Drug/Non Drug Allergy documented on EMR Reaction Allergy Type Onset Date Status penicillin G Penicillin G Sodium Unknown Drug Allergy Active Reason For Referral No Information Medications Medication SIG (Take, Route, Frequency, Duration) Notes Start Date End Date Status Omeprazole 20 MG 1 capsule Orally Once a day for 30 day(s) Stopped 11/29/18 Not-Taking Ranitidine HCl 300 MG 1 capsule Orally Twice a day for 30 day(s) 12/03/2018 Active Ranitidine HCl 150 MG 1 capsule at bedtime Orally Once a day for 30 day(s) Not-Taking Sucralfate 1 GM 1 tablet on an empty stomach Orally Twice a day Not-Taking Immunizations Vaccine Route Administration Date Status Comme nts Influenza Unknown 01/24/2018 Administered Social History Tobacco Use: Social History Observation Description Date Details (start date - stop date) Current Smoker NA - NA Tobacco Use/Smoking Question Answer Notes Patient is a current smoker How often do you smoke cigarettes? every day How many cigarettes a day do you smoke? 6-10 How soon after you wake up d o you smoke your first cigarette? 31-60 minutes Are you interested in quitting? Thinking about q uitting Alcohol Screen Question Answer Notes Did you have a drink containing alcohol in the p ast year? No Points 0 Interpretation Negative Section Notes: Nonsmoker; no alcohol. Former heavy coffee user--now 1 cup per day Problems Problem Type SNOMED Code ICD Code Onset Dates Problem Status W/U Status Risk Notes Problem 70345000 Heartburn (R12) Active confirmed Problem [id number] Gastroesophageal reflux disease, esophagitis presence not specified (K21.9) Active confirmed Plan Of Treatment Pending Test Test Name Order Date GI BIOPSY 12/27/2018 Future Test Test Name Order Date UPPER GI ENDOSCOPY 12/03/2018 Insurance Providers Payer Name Payer Address Payer Phone Subscriber Number Group Number Insured Name Patient Relationship to Insured Coverage Start Date Coverage End Date [facility] [address] [address] [place], [place] [id number] KATHERIN RUSS Self - patient is the insured Medical (General) History Medical History History ICD Code Denies CA,DM,CVA,Lung disease,renal dise ase GERD Surgical History Surgery Date(Month/Year) 1992
== END 2025-01-16 11:36 | disposition home or self-care (01) ==
LOC: HO.MAMMO 11:35
PROVIDERS: PCP General Practice; Visit Provider General Practice
DX: Z12.31 Encounter for screening mammogram for malignant neoplasm of breast (principal)
CPT/HCPCS: 77063; 77067

== ENCOUNTER → 2025-01-16 11:45 | Outpatient (BNV) | payer MEDICAID, SELFPAY | PROVIDERS: PCP General Practice; Visit Provider Internal Medicine | DX: Z12.31 Encounter for screening mammogram for malignant neoplasm of breast (principal) | CPT/HCPCS: 77063; 77067 ==

== ENCOUNTER 2025-01-27 10:06 | Outpatient (REF) | payer MEDICAID, SELFPAY ==
--- NOTE | ~2025-01-27 | XR_ITS ---
EXAMINATION: XR KNEE 4 OR MORE VIEWS RIGHT HISTORY: right knee pain COMPARISON: There are no prior studies available for comparison. FINDINGS: Four views of the right knee are submitted. Osseous mineralization is normal. There is no fracture or dislocation. The joint spaces are preserved. The soft tissues are unremarkable. There is no joint effusion. XR/XR knee RT 4V IMPRESSION: Unremarkable examination of the right knee. Electronically signed by: Antolin Zavala MD 01/27/2025 11:12 AM EDT
--- OUTSIDE RECORDS SUMMARY | 2025-01-27 10:00 | XMS_ITS | Encounter Summary ---
Author Organization [employer] Address [address] [facility] 7t [place] [address] Care Team Providers Care Weight Inspector Name Role Phone Maggi Sparrow MD Primary Care Provider [phone] Reason for Referral * Consultation (Routine) - Pending Review Specialty Diagnoses / Procedures Referred By Tegan madera Referred To Contact Orthopaedic Surgery Diagnoses Acute pain of right knee Ramesh Bunn MD [address] [place] [address] Phone: tel: fax: Referral ID Status Reason Start Date Expiration Date Visits Requested Visits Authorized [id number] Pending Review Specialty Services Required 01/27/2026 1 1 Reason for Visit * Reason Comments right knee pain swelling Encounter Details Date Type Department Care Team ([facility] st Contact Info) Description 01/27/2025 10:00 AM EDT Office Visit [facility] [address] [place] [address] [phone] Acute pain of right knee (Primary Dx) Social History Tobacco Use Types [...] your housing situation today? I have fannie sing 01/31/[address] you li [...] Sign Reading Time Taken Comments Blood Pressure 129/79 01/27/2025 9:47 AM EDT Pulse 82 01/27/2025 9:47 AM EDT Temperature 35.8 C (96.5 F) 01/27/2025 9:47 AM EDT Respiratory Rate 20 01/27/2025 9:47 AM EDT Oxygen Saturation 98% 01/27/2025 9:47 AM EDT Inhaled Oxygen Concentration - - Weight 115 kg (253 lb 3.2 oz) 01/27/2025 9:47 AM EDT Height 154.9 cm (5' 1 ) 01/27/2025 9:47 AM EDT Body Mass Index 47.84 01/27/2025 9:47 AM EDT documented in this encounter Miscellaneous Notes * Assessment & Plan Note - Ramesh Lopez MD - 01/27/2025 10:02 AM EDT Associated Problem(s): Acute pain of right knee Patient with c/o acute right knee pain x 3 weeks in the absence of any injury On exam evidence of a small joint efussion, No redness, no warmth, no bruise. No calf tenderness Symptoms and exam suggestive of DJD Plan: avoid repetitive motion, x-rays right knee, NSAIDS Ortho evaluation for consideration of steroid injection documented in this encounter Plan of Treatment Scheduled Referrals Name Type Priority Associated Diagnoses Order Schedule Referral to Orthopaedic Surgery Outpatient Referral Routine Acute pain of right knee Expected: 01/27/2025 (Approximate), Expires: 01/27/2026 documented as of this encounter Procedures Procedure Name Priority Date/Time Associated Diagnosis Comments XR KNEE 4+ VIEWS RIGHT Routine 01/27/2025 10:43 AM EDT Acute pain of right knee documented in this encounter Results * XR Knee 4+ Views Right (01/27/2025 10:43 AM EDT) Anatomical Region Laterality Modality Lower Extremities, Knee Right [facility] 01/27/2025 10:4 3 AM EDT Narrative 01/27/2025 11:15 AM EDT [address] [address] XRay Report Signed Patient: Violette Camacho V MR#: [id number] 477 : 1970 Acct:[id number] Age/Sex: 54 / F ADM Date: 01/27/25 Loc: HO.HHCX Attending Dr: Ramesh Quinonez MD Ordering Physician: Ramesh Quinonez MD Date of Service: 01/27/25 Procedure(s): XR knee RT 4V Accession Number(s): [id number] cc: Ramesh Quinonez MD; Maggi Sparrow Reason for Exam: right knee pain EXAMINATION: XR KNEE 4 OR MORE VIEWS RIGHT HISTORY: right knee pain COMPARISON: There are no prior studies available for comparison. FINDINGS: Four views of the right knee are submitted. Osseous mineralization is normal. There is no fracture or dislocation. The joint spaces are preserved. The soft tissues are unremarkable. There is no joint effusion. XR/XR knee RT 4V IMPRESSION: Unremarkable examination of the right knee. Electronically signed by: Antolin Zavala MD 01/27/2025 11:12 AM EDT RP Dictated By: Antolin Zavala MD Signed By: <Electronically signed by Antolin Zavala MD in OV> 01/27/25 1112 DD/ 1043 TD/TT: 01/27/25 1100 Fountain Supervisor: Procedure Note Donotuseinterpreter, Image - 01/27/2025 [place] [address] XRay Report Signed Patient: Violette Camacho VMR#: [id number] 477 : 1970Acct:[id number] Age/Sex: 54 / FADM Date: 01/27/25 Loc: HO.HHCX Attending Dr: Ramesh Quinonez MD Ordering Physician: Ramesh Quinonez MD Date of Service: 01/27/25 Procedure(s): XR knee RT 4V Accession Number(s): [id number] cc: Ramesh Quinonez MD; Maggi Sparrow Reason for Exam: right knee pain EXAMINATION: XR KNEE 4 OR MORE VIEWS RIGHT HISTORY: right knee pain COMPARISON: There are no prior studies available for comparison. FINDINGS: Four views of the right knee are submitted. Osseous mineralization is normal. There is no fracture or dislocation. The joint spaces are preserved. The soft tissues are unremarkable. There is no joint effusion. XR/XR knee RT 4V IMPRESSION: Unremarkable examination of the right knee. Electronically signed by: Antolin Zavala MD 01/27/2025 11:12 AM EDT RP Dictated By: Antolin Zavala MD Signed By: <Electronically signed by Antolin Zavala MD in OV> 01/27/25 1112 DD/ 1043 TD/TT: 10/14/25 1100 Fountain Supervisor: us Ramesh Lopez MD IMG XR PROCEDURES Fin al Result documented in this encounter Visit Diagnoses Diagnosis Acute pain of right knee- Primary documented in this encounter Additional Health Concerns Assessment Noted Time PHQ-9 Depression Total Score: 13 01/12/ 025 3:56 PM EDT documented as of this encounter Care Teams Weight Inspector Relationship Specialty Start Date End Date Maggi Sparrow MD [address] [place] [address] PCP - General Family Medicine 02/26/20 documented as of this encounter
--- OUTSIDE RECORDS SUMMARY | 2025-01-27 11:38 | XMS_ITS | Clinical Summary ---
Author Organization [facility] Address [address] [facility] [address] [place] [address] Phone Care Team Providers Care Event Services Manager Name Role Phone Pcp, Unknown Primary Care [...] file Medical Devices Not on file Insurance [facility] [employer] Care Teams Event Services Manager Relationship Specialty Start Date End Date Pcp, Unknown PCP - General 09/04/21 Additional Source Comments The information contained in this document represents components of the legal health record. It is not the complete legal health record.[facility]
--- OUTSIDE RECORDS SUMMARY | 2025-01-27 11:38 | XMS_ITS | Encounter Summary ---
Author Organization [employer] Address [address] [place] [address] Care Team Providers Care Stationary Engineer Name Role Phone Maggi Sparrow MD Primary Care Provider [phone] Encounter Details Date Type Department Care Team (Latest Contact Info) Description 01/27/2025 Travel Social History Tobacco Use Types Packs/Day [...] documented as of this encounter Care Teams Stationary Engineer Relationship Specialty Start Date End Date Maggi Sparrow MD [address] [place] [address] PCP - General Family Medicine 02/26/20 documented as of this encounter
--- OUTSIDE RECORDS SUMMARY | 2025-01-27 11:38 | XMS_ITS | Encounter Summary ---
Author Organization [employer] Address [address] [facility] 7t [place] [address] Care Team Providers Care Detective Bureau Chief Name Role Phone Maggi Sparrow MD Primary Care Provider [phone] Encounter Details Date Type Department Care Team ([facility] st Contact Info) Description 10/21/2024 Orders Only [facility] [address] [place], [place] [phone] Maggi Sparrow MD [address] [place], [place] [phone] Situational anxiety (Primary Dx) Social History Tobacco [...] documented as of this encounter Care Teams Detective Bureau Chief Relationship Specialty Start Date End Date Maggi Sparrow MD [address] [place] [address] PCP - General Family Medicine 02/26/20 documented as of this encounter
--- OUTSIDE RECORDS SUMMARY | 2025-01-27 11:38 | XMS_ITS | Encounter Summary ---
Author Organization [employer] Address [address] [facility] [address] [place] [address] Care Team Providers Care Machine Tank Operator Name Role Phone Maggi Sparrow MD Primary Care Provider Encounter Details Date Type Department Care Team (Late st Contact Info) Description 10/09/2022 Abstract [facility] [address] [place] [address] Beny Bliss, DMD [address] [place] [address] Social History Tobacco Use Types Packs/Day Years [...] documented as of this encounter Care Teams Machine Tank Operator Relationship Specialty Start Date End Date Maggi Sparrow MD [address] [place] [address] PCP - General Family Medicine 02/26/20 documented as of this encounter
--- OUTSIDE RECORDS SUMMARY | 2025-01-27 11:38 | XMS_ITS | Encounter Summary ---
Author Organization [employer] Address [address] [facility] 7t [place] [address] Care Team Providers Care Supply Chain Engineer Name Role Phone Maggi Sparrow MD Primary Care Provider [phone] Reason for Visit * Reason Onset Date Comments Appointment 10/11/2022 Encounter Details Date Type Department Care Team ([facility] st Contact Info) Description 10/11/2022 Telephone [facility] [address] [place] [address] Beny Bliss, DMD [address] [place] [address] Appointment Social History Tobacco Use Types Packs/Day [...] documented as of this encounter Care Teams Supply Chain Engineer Relationship Specialty Start Date End Date Maggi Sparrow MD [address] [place] [address] PCP - General Family Medicine 02/26/20 documented as of this encounter
--- OUTSIDE RECORDS SUMMARY | 2025-01-27 11:38 | XMS_ITS | Encounter Summary ---
Author Organization [employer] Address [address] [address] [place] [address] Care Team Providers Care Engine Cleaner Name Role Phone Maggi Sparrow MD Primary Care Provider [phone] Encounter Details Date Type Department Care Team ([facility] st Contact Info) Description 09/23/2023 Orders Only [facility] [address] [place], [place] [phone] Maggi Sparrow MD [address] [place], [place] [phone] Postmenopausal bleeding (Primary Dx) Social History Tobacco [...] documented as of this encounter Care Teams Engine Cleaner Relationship Specialty Start Date End Date Maggi Sparrow MD [address] [place] [address] PCP - General Family Medicine 02/26/20 documented as of this encounter
--- OUTSIDE RECORDS SUMMARY | 2025-01-27 11:38 | XMS_ITS | Patient Health Record ---
Author Organization [facility] Address [address] [place] [address] Support Name Relationship Address Phone Jeromy Cordero Emergency Contact [address] [facility] [address] [place] [phone] KATHERIN RUSS Guarantor Unknown [phone] Care Team Providers Care Riding Instructor Name Role Phone Bryan (DO NOT USE), [facility], [facility] Primary Care Provi aisha Antolin Bowden Unavailable [phone] Allergies Allergen (clinical drug ingredient) Drug/Non Drug Allergy documented on EMR Reaction Allergy Type Onset Date Status penicillin G Penicillin G Sodium Unknown Drug Allergy Active Reason For Referral No Information Medications Medication SIG (Take, Route, Frequency, Duration) Notes Start Date End Date Status Omeprazole 20 MG 1 capsule Orally Once a day; Duration: 30 day(s) Stopped 11/29/18 Not-Taking Ranitidine HCl 300 MG 1 capsule Orally Twice a day; Duration: 30 day(s) 12/03/2018 Active Ranitidine HCl 150 MG 1 capsule at bedtime Orally Once a day; Duration: 30 day(s) Not-Taking Sucralfate 1 GM 1 [...] Problem Status W/U Status Risk Notes Problem Heartburn (03249907) Heartburn (R12) Active confirmed Problem Gastroesophageal reflux disease (527855220) Gastroesophageal reflux disease, esophagitis presence not specified (K21.9) Active confirmed Plan Of Treatment Pending Test Test Name Order Date GI BIOPSY 12/27/2018 Future Test Test Name Order Date UPPER GI ENDOSCOPY 12/03/2018 Insurance Providers Payer Name Payer Address Payer Phone Subscriber Number Group Number Insured Name Patient Relationship to Insured Coverage Start Date Coverage End Date [facility] [address] [address] [place], [place] [phone] [id number] KATHERIN RUSS Self - patient is the insured Medical (General) History Medical History History ICD Code Denies CT,DM,CVA,Lung disease,renal dise ase GERD Surgical History Surgery Date(Month/Year) 1992
--- OUTSIDE RECORDS SUMMARY | 2025-01-27 11:38 | XMS_ITS | Encounter Summary ---
Author Organization [employer] Address [address] [facility] 7t [place] [address] Care Team Providers Care Safety Grooving Machine Operator Name Role Phone Maggi Sparrow MD Primary Care Provider [phone] Reason for Visit * Reason Onset Date Comments Med Refill 07/17/2023 Encounter Details Date Type Department Care Team ([facility] st Contact Info) Description 07/17/2023 Refill [facility] [address] [place] [address] Maggi Sparrow MD [address] [place] [address] Primary insomnia Social History Tobacco Use Types [...] documented as of this encounter Care Teams Safety Grooving Machine Operator Relationship Specialty Start Date End Date Maggi Sparrow MD [address] [place] [phone] PCP - General Family Medicine 02/26/20 documented as of this encounter
--- OUTSIDE RECORDS SUMMARY | 2025-01-27 11:38 | XMS_ITS | Encounter Summary ---
Author Organization [facility] Address [address] [facility] [address] [place] [phone] Phone Care Team Providers Care Fish Cake Maker Name Role Phone Pcp, Unknown Primary Care Provider Unavailabl e Encounter Details Date Type Department Care Team (Late st Contact Info) Description 09/04/2021 Procedure Pass [facility], Ct Scan - [address] [address] Social History Tobacco Use Types Packs/Day Years [...] 12:47 PM EDT Anna Chatterjee RN * [place] Suicide Severity Rating Scale (Screener/Recent Self-Report) Question [...] on filedocumented in this encounter Care Teams Fish Cake Maker Relationship Specialty Start Date End Date Pcp, Unknown PCP - General 09/04/21 documented as of this encounter Additional Source Comments The information contained in this document represents components of the legal health record. It is not the complete legal health record.[facility]
--- OUTSIDE RECORDS SUMMARY | 2025-01-27 11:39 | XMS_ITS | Clinical Summary ---
Author Organization [employer] Address [address] [facility] 7t [place] [address] Care Team Providers Care Medical Transcriptionist Name Role Phone Maggi Sparrow MD Primary Care Provider [phone] Allergies Active Allergy Reactions Criticality Noted Date [...] morning. 90 tablet 3 5 026 Active naproxen (Naprosyn) 500 MG tabletIndications :Acute pain of right knee Take 1 tablet (500 mg) by mouth 2 times daily. 60 tablet 5 Active famotidine (Pepcid) 40 MG tablet Take [...] within 12 hours or as directed by . 30 patch 1 4 025 Discontin ued(Thera py completed ) LORazepam (Ativan) 1 MG tabletIndications :Situational anxiety Take 1 tablet (1 mg) by mouth 1 (one) time for 1 dose. 1 tablet 5 025 Discontin ued(Thera py completed ) Active Problems Problem Noted Date Diagnosed Date Acute pain of right knee 01/27/2025 Assessment & Plan (01/27/2025 10:02 AM EDT): Patient with c/o acute right knee pain x 3 weeks in the absence of any injury On exam evidence of a small joint efussion, No redness, no warmth, no bruise. No calf tenderness Symptoms and exam suggestive of DJD Plan: avoid repetitive motion, x-rays right knee, NSAIDS Ortho evaluation for consideration of steroid injection PTSD (post-traumatic stress disorder) 01/13/2025 Endometrial stripe increased 01/13/2025 Overview (01/13/2025): Seen 08/2023, no biopsy done at 11/[address] Davis due to pt not able to tolerate procedure Assessment & Plan (01/13/2025 10:02 AM EDT): Referral replaced to plant and instrument engineer for EMB Moderate major depression (CMS/HCC) 01/12/2025 [...] -suspicious for lichen sclerosis -will refer to [facility] plant and instrument engineer for biopsy before initiating treatment -vaginal swab obtained for BV and yeast testing. Will treat accordingly if positive -vaginal health reviewed. Discouraged against use of soap intravaginally as to not alter vaginal pH -may take benadryl for itching until evaluated by plant and instrument engineer. Postmenopausal bleeding 09/03/2023 Assessment & Plan (11/15/2023 4:25 PM EDT): Patient request to procedure to stop when she was being sounded, complied with patient and stopped procedure. She reports she didn't tolerate the sound, at this moment will be better served in COMMUN[employer] EQUIPMENT [employer] office, could consider sedation to assist with [...] positive gastritis 09/27/2022 Overview (09/27/2022): EGD 12/2018 C: Esophagitis with No Niko's + Moderate Active [...] [place] Mother gave her away to the [facility] and was in Nursing Home from age 14 until 20 y/o. She reported sxs such as lack of motivation, depressed, sleep disturbance, little energy, poor appetite, trouble with concentration, thoughts without plan or intention, feeling nervous, irritability, fearful. She denies SI, HI, AVH or self-harm at this time. Symptoms do not appear to be due to substance use or other medical disorder. 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 Patient will benefit from Ind. Therapy and Medication Management. At this time Violette Camacho meets criteria for Visit Diagnoses: Problem List Items Addressed This Visit Other Mixed anxiety and depressive disorder Patient ready to address current needs Yes Strengths include Family support, and willing to engage in services. PLAN: 1. Follow up with [facility]: Recommended for follow-up: 10/06/22 at 1pm 2. [...] organization. Date Type Department Care Team Description 01/27/2025 10:00 AM EDT Office Visit [facility] [address] [place] [address] Acute pain of right knee (Primary Dx) 01/27/2025 Travel 01/12/2025 2:30 PM EDT Office Visit [facility] [address] [place] [phone] Maggi Sparrow MD Encounter for screening mammogram [...] Travel 12/25/2024 8:30 AM EDT Office Visit [facility] [address] [place] [address] Beny Bliss DMD Full coverage crown needed for root canal-treated tooth (Primary Dx) 11/26/2024 8:00 AM EDT Office Visit [facility] ADULT D[facility]AL [address] [place] [address] Beny Bliss DMD Full coverage crown needed for root canal-treated tooth (Primary Dx) 11/06/2024 [facility]phone [facility] [address] [place], [place] [phone] Maggi Sparrow MD Appt booked with pcp 10/30/2024 8:00 AM EDT Office Visit [facility] ADULT D[facility]AL [address] [place] [address] Beny Bliss DMD Symptomatic irreversible pulpitis (Primary Dx) from Last 3 Months Immunizations [...] Mass Index 47.84 01/27/2025 9:47 AM EDT Plan of Treatment Health Maintenance Due [...] 2024 09/15/2020, 08/18/2020 Influenza Vaccine (#1) 2024 3, 03/23/2020, 01/15/2018, Additional history exists Dental Oral Exam 01/02/2025 07/01/2024, 06/2022, 03/07/2022, Additional history exists Dental Prophylaxis 01/02/2025 07/01/2024, 11/23/2015 Dental X-Ray: Full Mouth 03/08/2025 03/07/2022, 04/0 10/2015 Dental X-Ray: Bitewings 07/02/2025 07/02/19, 03/07/2022, 07/22/2015 Depression Monitoring 07/12/2025 01/12/2025, 025 Mammogram 01/16/2026 01/16/2025, 12/16, 12/11/2022, Additional history exists Tobacco Screening 01/27/2026 01/27/2025 DTaP/Tdap/Td Vaccines (2 - Td or Tdap) [...] AM EDT Acute pain of right knee BI MAMMOGRAM SCREENING TOMOSYNTHESIS BILATERAL Routine 01/16/2025 11:49 AM EDT Encounter for screening mammogram for malignant neoplasm of breast CASE PRESENTATION, DETAILED AND EXTENSIVE TREATMENT PLANNING [...] coverage crown needed for root canal-treated tooth HPV MRNA E6/E7 REFLEX TO HPV 16, [...] Relevant to Health Maintenance Results * XR Knee 4+ Views Right (01/27/2025 10:43 AM EDT) Anatomical Region Laterality Modality Lower Extremities, Knee Right Radiogra phic Imaging 01/27/2025 10:4 3 AM EDT Narrative 01/27/2025 11:15 AM EDT [facility] [address] [place] [address] XRay Report Signed Patient: Violette Camacho V MR#: [id number] 477 : 1970 Acct:[id number] Age/Sex: 54 / F ADM Date: 01/27/25 Loc: HO.HHCX Attending Dr: Ramesh Quinonez MD Ordering Physician: Ramesh Quinonez MD Date of Service: 01/27/25 Procedure(s): XR knee RT 4V Accession Number(s): [id number] cc: Ramesh Quinonez MD; Maggi Sparrow Reason [...] Antolin Zavala MD 01/27/2025 11:12 AM EDT Dictated By: Antolin Zavaal MD Signed By: <Electronically signed by Antolin Zavala MD in OV> 01/27/25 1112 DD/ 1043 TD/TT: 01/27/25 1100 Station Detective: Procedure Note Donotuseinterpreter, Image - 01/27/2025 [facility] [address] [facility] [place], [place] [address] XRay Report Signed Patient: Violette Camacho VMR#: [id number] 477 : 1970Acct:[id number] Age/Sex: 54 / FADM Date: 01/27/25 Loc: HO.HHCX Attending Dr: Ramesh Quinonez MD Ordering Physician: Ramesh Quinonez MD Date of Service: 01/27/25 Procedure(s): XR knee RT 4V Accession Number(s): [id number] cc: Ramesh Quinonez MD; Maggi Sparrow Reason [...] Antolin Zavala MD 01/27/2025 11:12 AM EDT Dictated By: Antolin Zavala MD Signed By: <Electronically signed by Antolin Zavala MD in OV> 01/27/25 1112 DD/ 1043 TD/TT: 01/27/25 1100 Station Detective: us Ramesh [place] MD IMG XR PROCEDURES Fin al Result * BI Mammogram Screening Tomosynthesis Bilateral (01/16/2025 11:49 AM EDT) Anatomical Region Laterality Modality Breast Bilateral Mammography 01/16/2025 11:4 9 AM EDT Narrative 01/24/2025 2:56 PM EDT [address] [place] [address] Mammography Report Signed Patient: Violette Camacho V MR#: [id number] 477 : 1970 Acct:[id number] Age/Sex: 54 / F ADM Date: 01/16/25 Loc: JIMENEZ Attending Dr: Maggi Sparrow MD Ordering Physician: Maggi Sparrow Results: 1Negative Date of Service: 01/16/25 Follow Up: 1 Year From [facility] ina Mammogram Procedure(s): MM tomosynthesis screening BI Accession Number(s): [id number] cc: Maggi Sparrow Reason For Exam: routine breast cancer screening EXAMINATION: MM SCREENING DIGITAL BREAST TOMOSYNTHESIS, BILATERAL CLINICAL INFORMATION: Screening. Asymptomatic. COMPARISON: Mammography: Comparison is made with available priors TECHNIQUE: Digital breast mammography with tomosynthesis is performed in both the craniocaudal and mediolateral oblique views along with computer-aided detection (CAD). FINDINGS: The breasts are almost entirely fatty. There are no significant masses, abnormal calcifications, or other abnormalities. MM/MM tomosynthesis screening BI IMPRESSION: No mammographic evidence of malignancy. ASSESSMENT: BI-RADS Category 1: Negative RECOMMENDATION: Routine annual mammography screening. 1 year F/U This examination should not preclude the clinical evaluation of a suspicious palpable abnormality. This patient's information was entered into a reminder system with a target due date for their next mammogram. Electronically signed by: Kristie Mauricio DO 01/24/2025 02:53 PM EDT Dictated By: Kristie Mauricio DO Signed By: <Electronically signed by Kristie Mauricio DO in OV> 01/24/25 1453 DD/ 1149 TD/TT: 01/16/25 1155 Station Detective: Procedure Note Donotuseinterpreter, Image - 01/24/2025 [place] [facility] [address] [place], [place] [address] Mammography Report Signed Patient: Violette Camacho VMR#: [id number] 477 : 1970Acct:[id number] Age/Sex: 54 / FADM Date: 01/16/25 Loc: JIMENEZ Attending Dr: Maggi Sparrow MD Ordering Physician: Calixto Sparrowults: 1Negative Date of Service: 01/16/25Follow Up: 1 Year From Orig ina Mammogram Procedure(s): MM tomosynthesis screening BI Accession Number(s): [id number] cc: Maggi Sparrow Reason For Exam: routine breast cancer screening EXAMINATION: MM SCREENING DIGITAL BREAST TOMOSYNTHESIS, BILATERAL CLINICAL INFORMATION: Screening. Asymptomatic. COMPARISON: Mammography: Comparison is made with available priors TECHNIQUE: Digital breast mammography with tomosynthesis is performed in both the craniocaudal and mediolateral oblique views along with computer-aided detection (CAD). FINDINGS: The breasts are almost entirely fatty. There are no significant masses, abnormal calcifications, or other abnormalities. MM/MM tomosynthesis screening BI IMPRESSION: No mammographic evidence of malignancy. ASSESSMENT: BI-RADS Category 1: Negative RECOMMENDATION: Routine annual mammography screening. 1 year F/U This examination should not preclude the clinical evaluation of a suspicious palpable abnormality. This patient's information was entered into a reminder system with a target due date for their next mammogram. Electronically signed by: Kristie [place] DO 01/24/2025 02:53 PM EDT Dictated By: Kristie Mauricio DO Signed By: <Electronically signed by Kristie Mauricio DO in OV> 01/24/25 1453 DD/ 1149 TD/TT: 01/16/25 1155 Station Detective: Maggi Sparrow MD IMG BI PROCEDURES Final Result * Pap Smear (11/15/2023 4:20 PM EDT) SOURCE: SEE NOTE [facility] Comment:None given Report Status: TNP [facility] Clinical Information: SEE NOTE [facility] Comment:None given LMP: SEE NOTE [facility] Comment:NONE GIVEN Prev. PAP: SEE NOTE [facility] Comment:NONE GIVEN Prev. BX: SEE NOTE [facility] Comment:NONE GIVEN Statement Of Adequacy: SEE NOTE [facility] Comment:Satisfactory for edith luation.Endocervical/transformation zone componentpresent. General [facility]or[facility]: [facility] Interpretation/Result: SEE NOTE [facility] Comment:Cytology Results: Ne gative for intraepitheliallesion or malignancy. Cytology Comment SEE NOTE [facility] Comment:This Pap test has be en evaluated with computerassisted technology. Highway Traffic Control Technician: SEE NOTE [facility] Comment:CMB, CT(ASCP) CT Scr eening Location: [address] performed at: [employer], [address] [place] [address] CLIA No. [id number] Review [address] Traffic Control Technician: [facility] Pathologist [facility] PAP Infection [facility] See Note SEE NOTE [facility] Comment:EXPLANATORY NOTE:The Pap is a screening test for cervical cancer. It isnot a diagnostic test and is subject to false negativeand false positive results. It is most reliable when asatisfactory sample, regularly obtained, is submittedwith relevant clinical findings and history, and whenthe Pap result is evaluated along with historic andcurrent clinical information.THIS TEST WAS PERFORMED AT:[employer] [address] [id number] MERATI,MD Pap Vial Vaginal structure / Unknown 11/15/2023 4:20 PM EDT 11/15/2023 6:14 PM EDT Narrative [facility] - 11/21/2023 3:04 PM EDT SEE SCANNED RESULTS IN EMR us Keren Davis MD LAB PATHOLOGY ORDERABLES Ne l Result [facility] [address] [place] [address] [phone] * HPV mRNA E6/E7 w/Reflex to HPV Genotypes 16, 18/45 (11/15/2023 4:20 PM EDT) HPV nRNA E6/E7 Not Detected Not Detected [facility] Comment:Methodology: Transcr iption-Mediated AmplificationThis assay detects E6/E7 viral messenger RNA (mRNA) from 14high-risk HPV types (16,18,31,33,35,39,45,51,52,56,58,59,66,68).Cervical sources are required for HPV testing.If a vaginal source from a patient who has had atotal hysterectomy with removal of cervix wassubmitted, please contact the testing laboratoryfor alternative testing options.For additional information, please refer tohttp://education.[employer]/faq/BSD651v5(This link if provided for information/educational purposes only.)THIS TEST WAS PERFORMED AT:[facility] [place] [phone] CURIEL MD HPV mRNA E6/E7 TNP [facility] HPV 16 RNA [facility] HPV 18/45 RNA [facility] Vaginal Fluid Cervix uteri structure / Unknown 11/15/2023 4:20 PM EDT 11/15/2023 6:14 PM EDT Narrative [facility] - 11/21/2023 3:05 PM EDT Collection Date: [id number] by: MAGO Contreras: Cervix us Keren Davis MD LAB CYTOLOGY ORDERABLES Final Result [facility] [address] [place] [address] [phone] * (ABNORMAL) Lipid Panel, Standard (03/06/2023 8:03 AM EST) Triglycerides 68 <150 mg/dL [facility] Comment:Desirable Triglyceri de: less than 150 mg/dLBorderline High Triglyceride 150-199 mg/dLHigh Triglyceride: 200-499 mg/dLVery High Triglyceride: greater than or equal to 5OO mg/dL Cholesterol 171 <200 mg/dL [facility] Comment:Desirable Cholestero l: less than 200 mg/dLBorderline High Cholesterol: 200-239 mg/dLHigh Cholesterol: greater than 239 mg/dL LDL Cholesterol Calculated 115(H) <100 mg/dL [facility] Comment:Desirable LDL: less than 100 mg/dLNear Optimal/Above Optimal LDL: 110- 129 mg/dLBorderline High LDL: 130-159 mg/dLHigh LDL: 160-189 mg/dLVery High LDL: greater than or equal to 190 mg/dL HDL Cholesterol 43 >40 mg/dL [facility] Comment:Desirable HDL: great er than 40 mg/dL Note: This HDL assay may give artificially low results in patients with liver disease. Blood Venous blood specimen / Unknown 03/06/2023 8:03 AM EST 03/06/2023 11:16 AM EST us Maggi Sparrow MD LAB BLOOD ORDERABLES Final Res ult Performing Organization Address [facility] Co de Phone Number [facility] [address] [place] [phone] * HEPATITIS C AB W/REFL TO HCV RNA, QN, PCR (09/20/2020 9:37 AM EDT) HEPATITIS C ANTIBODY NON-REACT JOHN NON-REACT JOHN [facility] INDEX 0.03 <1.00 [facility] Comment: HCV antibody was non-reactive. There is no laboratory evidence of HCV infection. In most cases, no further action is required. However, if recent HCV exposure is suspected, a test for HCV RNA (test code 71629) is suggested. For additional information please refer to http://education.[employer]/faq/GFF56f9 (This link is being provided for informational/ educational purposes only.) 09/20/2020 9:37 AM EDT us Maggi Sparrow MD HISTORICAL/NON ORDERABLE LABS Final Result Performing Organization Address City/[facility] Co de Phone Number [facility] [address] from Last 3 Months or Most Recently Relevant to Health Maintenance Insurance DENTAL-[facility] MEDICAID STAND ADULT Care Teams Medical Transcriptionist Relationship Specialty Start Date End Date Maggi Sparrow MD [address] [place] [phone] PCP - General Family Medicine 02/26/20
== END 2025-01-27 10:07 | disposition home or self-care (01) ==
LOC: HO.HHCX 10:06
PROVIDERS: PCP General Practice; Visit Provider Internal Medicine
DX: M25.561 Pain in right knee (principal)
CPT/HCPCS: 73564

== ENCOUNTER → 2025-01-27 10:23 | Outpatient (BNV) | payer MEDICAID, SELFPAY | PROVIDERS: PCP General Practice; Visit Provider Radiology Diagnostic Radiology | DX: M25.561 Pain in right knee (principal) | CPT/HCPCS: 73564 ==

== ENCOUNTER 2025-01-28 08:39 | Outpatient (REF) | payer MEDICAID, SELFPAY ==
--- OUTSIDE RECORDS SUMMARY | 2025-01-27 10:00 | XMS_ITS | Encounter Summary ---
Author Organization [employer] Address [address] [place] [address] 7t [place] [address] Care Team Providers Care Supervisor Meter Shop Name Role Phone Maggi Sparrow MD Primary Care Provider [phone] Reason for Referral * Consultation (Routine) - Pending Review Specialty Diagnoses / Procedures Referred By Tegan madera Referred To Contact Orthopaedic Surgery Diagnoses Acute pain of right knee Ramesh Bunn MD [address] [place] [address] Phone: tel: fax: Referral ID Status Reason Start Date Expiration Date Visits Requested Visits Authorized [id number] Pending Review Specialty Services Required 01/27/2026 1 1 Reason for Visit * Reason Comments right knee pain swelling Encounter Details Date Type Department Care Team ([facility] st Contact Info) Description 01/27/2025 10:00 AM EDT Office Visit [facility] [address] [place] [phone] Ramesh Bunn MD [address] [place] [address] [phone] Acute pain of right knee (Primary Dx) [...] 9:47 AM EDT documented in this encounter Progress Notes * Ramesh Lopez MD - 01/27/2025 10:00 AM EDT SUBJECTIVE Violette Camacho is a 54 y.o. female who presents for right knee pain swelling. Knee Pain The incident occurred more than 1 week ago. There was no injury mechanism. The pain is present in the right knee. The pain is at a severity of 6/10. The pain is moderate. The pain has been Intermittent since onset. The symptoms are aggravated by movement. She has tried nothing for the symptoms. Review of Systems Constitutional: Negative for fever. HENT: Negative for sore throat. Respiratory: Negative for cough and shortness of breath. Cardiovascular: Negative for chest pain. Gastrointestinal: Negative for abdominal pain. Neurological: Negative for headaches. Allergies[1] OBJECTIVE Vitals: 01/27/25 0947 BP: 129/79 BP Location: Left arm Patient Position: Sitting BP Cuff Size: Large adult long Pulse: 82 Resp: 20 Temp: 96.5 ??F (35.8 ??C) TempSrc: Temporal SpO2: 98% Weight: 253 lb 3.2 oz (115 kg) Height: 5' 1 (1.549 m) Physical Exam Vitals reviewed. Constitutional: Appearance: Normal appearance. HENT: Head: Normocephalic and atraumatic. Right Ear: External ear normal. Left Ear: External ear normal. Nose: Nose normal. Mouth/Throat: Mouth: Mucous membranes are moist. Eyes: Conjunctiva/sclera: Conjunctivae normal. Cardiovascular: Rate and Rhythm: Normal rate and regular rhythm. Pulmonary: Effort: Pulmonary effort is normal. Breath sounds: Normal breath sounds. Musculoskeletal: Right knee: Effusion and crepitus present. No swelling, deformity or erythema. Decreased range of motion. Tenderness present over the lateral joint line. Instability Tests: Anterior drawer test negative. Posterior drawer test negative. Anterior Akhil test negative. Right lower leg: No swelling. No edema. Left lower leg: Normal. Right ankle: Normal. Left ankle: Normal. Skin: General: Skin is warm. Neurological: Mental Status: She is alert. Mental status is at baseline. Assessment/Plan Problem List Items Addressed This Visit Acute pain of right knee - Primary Patient with c/o acute right knee pain x 3 weeks in the absence of any injury On exam evidence of a small joint efussion, No redness, no warmth, no bruise. No calf tenderness Symptoms and exam suggestive of DJD Plan: avoid repetitive motion, x-rays right knee, NSAIDS Ortho evaluation for consideration of steroid injection Relevant Medications naproxen (Naprosyn) 500 MG tablet Other Relevant Orders XR Knee 4+ Views Right (Completed) Referral to Orthopaedic Surgery No future appointments. [1] Allergies Allergen Reactions Penicillins Turns red Other reaction(s): redness all over body, with burning sensation documented in this encounter Miscellaneous Notes * [...] Laterality Modality Lower Extremities, Knee Right Radiogra phic Imaging 01/27/2025 10:4 3 AM EDT Narrative 01/27/2025 11:15 AM EDT [address] [address] XRay Report Signed Patient: Violette Camacho V MR#: [id number] 477 : 1970 Acct:[id number] Age/Sex: 54 / F ADM Date: 01/27/25 Loc: JOANIE Attending Dr: Ramesh Quinonez MD Ordering Physician: Ramesh Quinonez MD Date of Service: 01/27/25 Procedure(s): XR knee RT 4V Accession Number(s): [id number] cc: Ramesh Quinonez MD; Maggi Sparrow Reason [...] 01/27/25 1112 DD/ 1043 TD/TT: 01/27/25 1100 Commercial Construction Superintendent: Procedure Note Donotuseinterpreter, Image - 01/27/[address] [address] XRay Report Signed Patient: Violette Camacho VMR#: [id number] 477 : 1970Acct:[id number] Age/Sex: 54 / FADM Date: 01/27/25 Loc: JOANIE Attending Dr: Ramesh Quinonez MD Ordering Physician: Ramesh Quinonez MD Date of Service: 01/27/25 Procedure(s): XR knee RT 4V Accession Number(s): [id number] cc: Ramesh Quinonez MD; Maggi Sparrow Reason [...] 01/27/25 1112 DD/ 1043 TD/TT: 01/27/25 1100 Commercial Construction Superintendent: us Ramesh Lopez MD IMG XR PROCEDURES Fin al Result documented in this encounter Visit Diagnoses Diagnosis Acute pain of right knee- Primary documented in this encounter Additional Health Concerns Assessment Noted Time PHQ-9 Depression Total Score: 13 01/12/ 025 3:56 PM EDT documented as of this encounter Care Teams Supervisor Meter Shop Relationship Specialty Start Date End Date Maggi Sparrow MD [address] [place] [address] PCP - General Family Medicine 02/26/20 documented as of this encounter
--- OUTSIDE RECORDS SUMMARY | 2025-01-28 09:09 | XMS_ITS | Encounter Summary ---
Author Organization [email or web address] Address [address] [facility] [address] [facility] [facility] [address] 7[address] [place] [address] Care Team Providers Care Staging Technician Name Role Phone Maggi Sparrow MD Primary Care Provider [phone] Encounter Details Date Type Department Care Team ([facility] st Contact Info) Description 09/23/2023 Orders Only [facility] [address] [place], [place] [phone] Maggi Sparrow MD [address] [place], [place] [phone] Postmenopausal bleeding (Primary Dx) Social History Tobacco [...] documented as of this encounter Care Teams Staging Technician Relationship Specialty Start Date End Date Maggi Sparrow MD [address] [place] [phone] PCP - General Family Medicine 02/26/20 documented as of this encounter
--- OUTSIDE RECORDS SUMMARY | 2025-01-28 09:09 | XMS_ITS | Encounter Summary ---
Author Organization [employer] Address [address] [facility] 7t [place] [address] Care Team Providers Care Deputy Juvenile Officer Name Role Phone Maggi Sparrow MD Primary Care Provider [phone] Encounter Details Date Type Department Care Team ([facility] st Contact Info) Description 10/21/2024 Orders Only [facility] [address] [place], [place] [phone] Maggi Sparrow MD [address] [place], [place] [phone] Situational anxiety (Primary Dx) Social History Tobacco [...] documented as of this encounter Care Teams Deputy Juvenile Officer Relationship Specialty Start Date End Date Maggi Sparrow MD [address] [place] [phone] PCP - General Family Medicine 02/26/20 documented as of this encounter
--- OUTSIDE RECORDS SUMMARY | 2025-01-28 09:09 | XMS_ITS | Encounter Summary ---
Author Organization [facility] Address [address] [facility] [address] [place] [phone] Phone Care Team Providers Care Process Controller Name Role Phone Pcp, Unknown Primary Care Provider Unavailabl e Encounter Details Date Type Department Care Team (Late st Contact Info) Description 09/04/2021 Procedure Pass [facility], Ct Scan - [address] [address] Social History Tobacco Use Types Packs/Day Years [...] 12:47 PM EDT Anna Chatterjee RN * [place] Suicide Severity Rating Scale (Screener/Recent Self-Report) Question [...] on filedocumented in this encounter Care Teams Process Controller Relationship Specialty Start Date End Date Pcp, Unknown PCP - General 09/04/21 documented as of this encounter Additional Source Comments The information contained in this document represents components of the legal health record. It is not the complete legal health record.[facility]
--- OUTSIDE RECORDS SUMMARY | 2025-01-28 09:09 | XMS_ITS | Clinical Summary ---
Author Organization [facility] Address [address] [place] [phone] Phone Care Team Providers Care Supervisor Logging Name Role Phone Pcp, Unknown Primary Care [...] file Medical Devices Not on file Insurance [facility] C3 ACO Care Teams Supervisor Logging Relationship Specialty Start Date End Date Pcp, Unknown PCP - General 09/04/21 Additional Source Comments The information contained in this document represents components of the legal health record. It is not the complete legal health record.[facility]
--- OUTSIDE RECORDS SUMMARY | 2025-01-28 09:09 | XMS_ITS | Encounter Summary ---
Author Organization [employer] Address [address] 7t [place] [address] Care Team Providers Care Front Tender Name Role Phone Maggi Sparrow MD Primary Care Provider [phone] Reason for Visit * Reason Onset Date Comments Appointment 10/11/2022 Encounter Details Date Type Department Care Team ([facility] st Contact Info) Description 10/11/2022 Telephone [facility] [address] [place] [address] Beny Bliss, DMD [address] [place] [address] Appointment Social History Tobacco Use Types Packs/Day [...] documented as of this encounter Care Teams Front Tender Relationship Specialty Start Date End Date Maggi Sparrow MD [address] [place] [address] PCP - General Family Medicine 02/26/20 documented as of this encounter
--- OUTSIDE RECORDS SUMMARY | 2025-01-28 09:09 | XMS_ITS | Encounter Summary ---
Author Organization [employer] Address [address] [facility] 7t [place] [address] Care Team Providers Care Budget Examiner Name Role Phone Maggi Sparrow MD Primary Care Provider [phone] Reason for Visit * Reason Onset Date Comments Med Refill 07/17/2023 Encounter Details Date Type Department Care Team ([facility] st Contact Info) Description 07/17/2023 Refill [facility] [address] [place] [address] Maggi Sparrow MD [address] [place] [address] Primary insomnia Social History Tobacco Use Types [...] documented as of this encounter Care Teams Budget Examiner Relationship Specialty Start Date End Date Maggi Sparrow MD [address] [place] [phone] PCP - General Family Medicine 02/26/20 documented as of this encounter
--- OUTSIDE RECORDS SUMMARY | 2025-01-28 09:09 | XMS_ITS | Patient Health Record ---
Author Organization [facility] Address [address] [place] [address] Support Name Relationship Address Phone Jeromy Cordero Emergency Contact [address] [facility] [address] [place] [phone] KATHERIN RUSS Guarantor Unknown [phone] Care Team Providers Care Food And Drug Research Scientist Name Role Phone Bryan (DO NOT USE), [facility] Primary Care Provi aisha Antolin Bowden Unavailable [phone] Allergies Allergen (clinical drug ingredient) Drug/Non Drug [...] Status W/U Status Risk Notes Problem Heartburn (58271190) Heartburn (R12) Active confirmed Problem Gastroesophageal reflux disease (882055238) Gastroesophageal reflux disease, esophagitis presence not specified (K21.9) Active confirmed Plan Of Treatment Pending Test Test Name Order Date GI BIOPSY 12/27/2018 Future Test Test Name Order Date UPPER GI ENDOSCOPY 12/03/2018 Insurance Providers Payer Name Payer Address Payer Phone Subscriber Number Group Number Insured Name Patient Relationship to Insured Coverage Start Date Coverage End Date [facility] [address] [address] [place], [place] [id number] KATHERIN RUSS Self - patient is the insured Medical (General) History Medical History History ICD Code Denies IN,DM,CVA,Lung disease,renal dise ase GERD Surgical History Surgery Date(Month/Year) 1992
--- OUTSIDE RECORDS SUMMARY | 2025-01-28 09:09 | XMS_ITS | Clinical Summary ---
Author Organization [employer] Address [address] 7t [place] [address] Care Team Providers Care Regrader Name Role Phone Maggi Sparrow MD Primary Care Provider [phone] Allergies Active Allergy Reactions Criticality Noted Date [...] (01/13/2025 10:02 AM EDT): Referral replaced to button sewer hand for EMB Moderate major depression (CMS/HCC) 01/12/2025 [...] lichen sclerosis -will refer [place] [facility] sewer hand for biopsy before initiating treatment -vaginal swab obtained for BV and yeast testing. Will treat accordingly if positive -vaginal health reviewed. Discouraged against use of soap intravaginally as to not alter vaginal pH -may take benadryl for itching until evaluated by button sewer hand. Postmenopausal bleeding 09/03/2023 Assessment & Plan (11/15/2023 4:25 PM EDT): Patient request to procedure to stop when she was being sounded, complied with patient and stopped procedure. 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 Mother gave her away to the [facility] and was in [facility] Living from age 14 until 20 y/o. She reported sxs such as lack of motivation, depressed, sleep disturbance, little energy, poor appetite, trouble with concentration, thoughts without plan or intention, feeling nervous, irritability, fearful. She denies SI, HI, AVH or self-harm at this time. Symptoms do not appear to be due to substance use or other medical disorder. 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 Patient will benefit from Ind. Therapy and Medication Management. At this time Violette Camacho meets criteria for Visit Diagnoses: Problem List Items Addressed This Visit Other Mixed anxiety and depressive disorder Patient ready to address current needs Yes Strengths include Family support, and willing to engage in services. PLAN: 1. Follow up with [facility]: Recommended for follow-up: 10/06/22 at 1pm 2. [...] Description 01/27/2025 10:00 AM EDT Office Visit [facility] [address] [place] [phone] Ramesh Bunn MD Acute pain of right knee (Primary Dx) 01/27/2025 Travel 01/12/2025 2:30 PM EDT Office Visit [facility] [address] [place] [address] Maggi Sparrow MD Encounter for screening mammogram [...] Travel 12/25/2024 8:30 AM EDT Office Visit [facility] [address] [place] [address] Beny Bliss DMD Full coverage crown needed for root canal-treated tooth (Primary Dx) 11/26/2024 8:00 AM EDT Office Visit [facility] [address] [facility] [place] [address] Beny Bliss DMD Full coverage crown needed for root canal-treated tooth (Primary Dx) 11/06/[address] [phone] Maggi Sparrow MD Appt booked with pcp 10/30/2024 8:00 AM EDT Office Visit [facility] [address] [place] [address] Beny Bliss DMD Symptomatic irreversible pulpitis (Primary [...] RADIOGRAPHIC IMAGES Routine 03/07/2022 12:00 AM EST CORY HISTORICAL HEPATITIS C AB W/REFL TO HCV RNA, QN, PCR Routine 09/20/2020 9:37 AM EDT from Last 3 Months or Most Recently Relevant to Health Maintenance Results * XR Knee 4+ Views Right (01/27/2025 10:43 AM EDT) Anatomical Region Laterality Modality Lower Extremities, Knee Right Radiogra phic Imaging 01/27/2025 10:4 3 AM EDT Narrative 01/27/2025 11:15 AM EDT [address] [address] XRay Report Signed Patient: Violette Camacho V MR#: [id number] : 1970 Acct:[id number] Age/Sex: 54 / F ADM Date: 01/27/25 Loc: .HHCX Attending Dr: Ramesh Quinonez MD Ordering Physician: Ramesh Quinonez MD Date of Service: 01/27/25 Procedure(s): XR knee RT 4V Accession Number(s): [id number] cc: Ramesh Quinonez MD; Maggi Sparrow Reason [...] 01/27/25 1112 DD/ 1043 TD/TT: 01/27/25 1100 Inspector Welded Parts: Procedure Note Donotuseinterpreter, Image - 01/27/2025 [facility] [address] [place] [address] XRay Report Signed Patient: Violette Camacho VMR#: [id number] : 1970Acct:[id number] Age/Sex: 54 / FADM Date: 01/27/25 Loc: HO.HHCX Attending Dr: Ramesh Quinonez MD Ordering Physician: Ramesh Quinonez MD Date of Service: 01/27/25 Procedure(s): XR knee RT 4V Accession Number(s): [id number] cc: Ramesh Quinonez MD; Maggi Sparrow Reason [...] 01/27/25 1112 DD/ 1043 TD/TT: 01/27/25 1100 Inspector Welded Parts: us Ramesh Lopez MD IMG XR PROCEDURES Fin al Result * BI Mammogram Screening Tomosynthesis Bilateral (01/16/2025 11:49 AM EDT) Anatomical Region Laterality Modality Breast Bilateral Mammography 01/16/2025 11:4 9 AM EDT Narrative 01/24/2025 2:56 PM EDT [address] [place] [address] Mammography Report Signed Patient: Violette Camacho V MR#: [id number] : 1970 Acct:[id number] Age/Sex: 54 / F ADM Date: 01/16/25 Loc: JIMENEZ Attending Dr: Maggi Sparrow MD Ordering Physician: Maggi Sparrow Results: 1Negative Date of Service: 01/16/25 Follow Up: 1 Year From Orig inal Mammogram Procedure(s): MM tomosynthesis screening BI Accession Number(s): [id number] cc: Maggi Sparrow Reason For Exam: routine [...] 01/24/25 1453 DD/ 1149 TD/TT: 01/16/25 1155 Inspector Welded Parts: Procedure Note Donotuseinterpreter, Image - 01/24/2025 [facility] [address] [place], [place] [address] Mammography Report Signed Patient: Violette Camacho VMR#: [id number] : 1970Acct:[id number] Age/Sex: 54 / FADM Date: 01/16/25 Loc: JIMENEZ Attending Dr: Maggi Sparrow MD Ordering Physician: Calixto Sparrowults: 1Negative Date of Service: 01/16/25Follow Up: 1 Year From Orig inal Mammogram Procedure(s): MM tomosynthesis screening BI Accession Number(s): [id number] cc: Maggi Sparrow Reason For Exam: routine [...] Kristie Mauricio DO 01/24/2025 02:53 PM EDT RP Dictated By: Kristie Mauricio DO Signed By: <Electronically signed by Kristie Mauricio DO in OV> 01/24/25 1453 DD/ 1149 TD/TT: 01/16/25 1155 Inspector Welded Parts: Maggi Sparrow MD IMG BI PROCEDURES Final Result * Pap Smear (11/15/2023 4:20 PM EDT) SOURCE: SEE NOTE [facility] Comment:None given Report Status: TNP [facility] Clinical Information: SEE NOTE [facility] Comment:None given LMP: SEE NOTE [facility] Comment:NONE GIVEN Prev. PAP: SEE NOTE [facility] Comment:NONE GIVEN Prev. BX: SEE NOTE [facility] Comment:NONE GIVEN Statement Of Adequacy: SEE NOTE [facility] Comment:Satisfactory for edith luation.Endocervical/transformation zone componentpresent. General Categorization: [facility] Interpretation/Result: SEE NOTE [facility] Comment:Cytology Results: Ne gative for intraepitheliallesion or malignancy. Cytology Comment SEE NOTE [facility] Comment:This Pap test has be en evaluated with computerassisted technology. Validation Manager: SEE NOTE [facility] Comment:CMB, CT(ASCP) CT Scr eening Location: iPayment [address] preparation performed at: [employer], [address] [place] [address] CLIA No. [id number] Review Validation Manager: [facility] Pathologist [facility] PAP Infection [facility] See Note SEE NOTE [facility] [...] historic andcurrent clinical information.THIS TEST WAS PERFORMED AT:[facility] [address] [id number] MERATI,MD Pap Vial Vaginal structure / Unknown 11/15/2023 4:20 PM EDT 11/15/2023 6:14 PM EDT Narrative [facility] - 11/21/2023 3:04 PM EDT SEE SCANNED RESULTS IN EMR us Keren Davis MD LAB PATHOLOGY ORDERABLES Ne stoll Result [facility] [address] [place] [address] [phone] * HPV mRNA E6/E7 w/Reflex to [...] alternative testing options.For additional information, please refer tohttp://education.[employer]faq/QJN323s4(This link if provided for information/educational purposes only.)THIS TEST WAS PERFORMED AT:[facility] [place] [phone] CURIEL MD HPV mRNA E6/E7 [facility] HPV 16 RNA [facility] HPV 18/45 RNA [facility] Vaginal Fluid Cervix uteri structure / Unknown 11/15/2023 4:20 PM EDT 11/15/2023 6:14 PM EDT Narrative [facility] - 11/21/2023 3:05 PM EDT Collection Date: [id number] by: MAGO Contreras: Cervix us Keren Davis MD LAB CYTOLOGY ORDERABLES Final Result [facility] [address] [place] [address] [phone] * (ABNORMAL) Lipid Panel, Standard (03/06/2023 8:03 AM EST) Triglycerides 68 <150 mg/dL [facility] Comment:Desirable Triglyceri de: less than [...] 190 mg/dL HDL Cholesterol 43 >40 mg/dL [facility] Comment:Desirable HDL: great er than 40 mg/dL Note: This HDL assay may give artificially low results in patients with liver disease. Blood Venous blood specimen / Unknown 03/06/2023 8:03 AM EST 03/06/2023 11:16 AM EST us Maggi Sparrow MD LAB BLOOD ORDERABLES Final Res ult Performing Organization Address [facility] Co de Phone Number [facility] [address] [place] [address] [phone] * HEPATITIS C AB W/REFL TO [...] a test for HCV RNA (test code 37542) is suggested. For additional information please refer to http://education.[employer]/faq/KXI35i9 (This link is being provided for informational/ educational purposes only.) 09/20/2020 9:37 AM EDT us Maggi Sparrow MD HISTORICAL/NON ORDERABLE LABS Final Result Performing Organization Address City/[facility]/ZIP Co de Phone Number [facility] [address] [place] [address], from Last 3 Months or Most Recently Relevant to Health Maintenance Insurance [facility] MEDICAID STAND ADULT Care Teams Regrader Relationship Specialty Start Date End Date Maggi Sparrow MD [address] [place] [address] PCP - General Family Medicine 02/26/20
--- OUTSIDE RECORDS SUMMARY | 2025-01-28 09:09 | XMS_ITS | Encounter Summary ---
Author Organization [employer] Address [address] 7[address] [place] [address] Care Team Providers Care Director Advertising Name Role Phone Maggi Sparrow MD Primary Care Provider [phone] Encounter Details Date Type Department Care Team [...] documented as of this encounter Care Teams Director Advertising Relationship Specialty Start Date End Date Maggi Sparrow MD [address] [place] [address] PCP - General Family Medicine 02/26/20 documented as of this encounter
--- OUTSIDE RECORDS SUMMARY | 2025-01-28 09:09 | XMS_ITS | Encounter Summary ---
Author Organization [employer] Address [address] [place] [address] Care Team Providers Care Inspector Scales Name Role Phone Maggi Sparrow MD Primary Care Provider [phone] Encounter Details Date Type Department Care Team (Late st Contact Info) Description 10/09/2022 Abstract [facility] [address] [place] [address] Beny Bliss, DMD [address] [place] [address] Social History Tobacco Use Types Packs/Day Years [...] documented as of this encounter Care Teams Inspector Scales Relationship Specialty Start Date End Date Maggi Sparrow MD [address] [place] [address] PCP - General Family Medicine 02/26/20 documented as of this encounter
[2025-01-28 11:42] LABS: Hemoglobin A1C 139.6536 umol/L
[2025-01-28 11:58] LABS: Alanine Aminotransferase 17 U/L (0-31); Albumin Level 3.9 g/dL (3.5-5.0); Alkaline Phosphatase 87 U/L (39-117); Anion Gap 10 (12-20); Aspartate Amino Transferase 23 U/L (5-31); Blood Urea Nitrogen 10 mg/dL (9-16); Calcium 8.9 mg/dL (8.4-10.2); Carbon Dioxide 26 mmol/L (22-29); Chloride 109 mmol/L (96-108); Estimated Glomerular Filt Rate > 60; Potassium 4.3 mmol/L (3.3-5.1); Sodium 141 mmol/L (135-145); Total Protein 6.7 g/dL (6.5-8.0)
== END 2025-01-28 08:40 | disposition home or self-care (01) ==
LOC: HO.HHCL 08:39
PROVIDERS: PCP General Practice; Visit Provider General Practice
DX: E66.813 Obesity, class 3 (principal); Z68.41 Body mass index [BMI] 40.0-44.9, adult
CPT/HCPCS: 36415; 80053; 83036; 84443

== ENCOUNTER 2025-03-25 15:47 | Emergency (ER) | payer MEDICAID, SELFPAY ==
--- NOTE | ~2025-03-25 | XR_ITS ---
EXAMINATION: XR CHEST CLINICAL INFORMATION: cough, congestion COMPARISON: 03/23/2020 TECHNIQUE: 2 views of the chest were obtained. FINDINGS: No significant abnormality is noted involving the heart, lungs, mediastinum, bony thorax or soft tissues. XR/XR chest 2V IMPRESSION: Unremarkable examination. Electronically signed by: Booker Alvarez MD 03/25/2025 04:47 PM [facility]
--- OUTSIDE RECORDS SUMMARY | 2025-03-25 15:20 | XMS_ITS | Encounter Summary ---
Author Organization [employer] Address [address] [facility] [address] [place] [address] Care Team Providers Care Bass Mechanism Maker Name Role Phone Maggi Sparrow MD Primary Care Provider [phone] Reason for Visit * Reason Comments Cough Encounter Details Date Type Department Care Team ([facility] Contact Info) Description 03/25/2025 3:20 PM EST Office Visit [facility] [address] [place] [phone] Deion Ryan MD [address] [place] [phone] Influenza A (Primary Dx); Rectal bleeding; Bronchospasm; Tachycardia; Tobacco dependence; Cough in adult patient Social History Tobacco Use Types Packs/Day Years Used Date Smoking Tobacco: Every Day Cigarettes Passive Smoke Exposure: Current Smokeless Tobacco: Never Tobacco Cessation:Ready to Q uit: Not Asked; Counseling Given: Not Answered Alcohol Use Standard Drinks/Week Comments Never 0 [...] Sign Reading Time Taken Comments Blood Pressure 117/78 03/25/2025 3:16 PM EST Pulse 113 03/25/2025 3:16 PM EST Temperature 36.9 C (98.5 F) 03/25/2025 3:16 PM EST Respiratory Rate 20 03/25/2025 3:16 PM EST Oxygen Saturation 97% 03/25/2025 3:16 PM EST Inhaled Oxygen Concentration - - Weight 110 kg (243 lb) 03/25/2025 3:16 PM EST Height - - Body Mass Index 45.91 02/10/2025 11:23 AM EDT documented in this encounter Progress Notes * Deion Ryan MD - 03/25/2025 3:20 PM EST Subjective Patient ID: Violette Camacho is a 54 y.o. female. HPI 3 days ago Violette had onset of dry cough, wheezing, SOB. The next day had onset of watery diarrhea,4x/day. Just prior to WIC visit, there was red blood on toilet paper when she wiped after episode of diarrhea. Has bodyaches. Last night woke with diaphoresis, had normal temp then. Drinking liquids, has had urinary frequency. Has not eaten food for past 3 days due to lack of appetitie. No vomiting. Taking NyQuil States h/o asthma as child. Lives with . Granddaughter was recently ill with KATELYN symptoms. LMP=irreg. 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 Smokes 1/2 PPD Patient Active Problem List Diagnosis Date Noted Acute pain of right knee 01/27/2025 PTSD (post-traumatic stress disorder) 01/13/2025 Endometrial stripe increased 01/13/2025 Moderate major depression (CMS/HCC) (HCC) 01/12/2025 Acute bilateral low back pain without sciatica 03/17/2024 Plantar wart of right foot 02/08/2024 Vaginal itching 09/28/2023 Postmenopausal bleeding 09/03/2023 Primary insomnia 03/10/2023 Perimenopause 09/27/2022 Encounter for screening colonoscopy 09/27/2022 Gastroesophageal reflux disease without esophagitis 09/27/2022 Helicobacter positive gastritis 09/27/2022 Mixed anxiety and depressive disorder 09/22/2022 Median nerve entrapment 09/21/2022 Heberden node 09/21/2022 Anxiety 05/07/2018 The following portions of the chart were reviewed this encounter and updated as appropriate: Review of Systems Constitutional: Positive for diaphoresis. Negative for fever. Respiratory: Positive for cough, shortness of breath and wheezing. Cardiovascular: Negative for chest pain. Gastrointestinal: Positive for blood in stool and diarrhea. Negative for abdominal pain. Skin: Negative for rash. Neurological: Negative for headaches. Objective Physical Exam Constitutional: Appearance: Normal appearance. HENT: Right Ear: Tympanic membrane, ear canal and external ear normal. Left Ear: Tympanic membrane, ear canal and external ear normal. Nose: Nose normal. Mouth/Throat: Mouth: Mucous membranes are moist. Pharynx: Oropharynx is clear. Eyes: Conjunctiva/sclera: Conjunctivae normal. Pupils: Pupils are equal, round, and reactive to light. Cardiovascular: Rate and Rhythm: Normal rate and regular rhythm. Heart sounds: No murmur heard. Pulmonary: Effort: Pulmonary effort is normal. Breath sounds: Wheezing (moderate diffuse bilateral expiratory) present. Musculoskeletal: General: Normal range of motion. Cervical back: No tenderness. Skin: Findings: No rash. Neurological: Mental Status: She is alert. Gait: Gait is intact. Psychiatric: Mood and Affect: Mood normal. Behavior: Behavior normal. Procedures Assessment/Plan Diagnoses and all orders for this visit: Influenza A Positive rapid influenza A test. Negative rapid COVID test. Discussed trying outpatient treatment versus going to the ED now. Patient feels too ill to return home at this time, and will go to the ED for further evaluation andtreatment. Rectal bleeding Violette declines a rectal exam. States she believes the bleeding is from the irritation of constantly wiping after multiple episodes of watery diarrhea. Bronchospasm Initially ordered albuterol neb and prednisone in walk-in clinic, but patient has decided to go to the ED prefers to wait until then to receive treatment. - albuterol (2.5 MG/3ML) 0.083% nebulizer solution 2.5 mg - predniSONE (Deltasone) tablet 20 mg Tachycardia Afebrile. Presumptively related to dehydration despite drinking fluids at home. Going to ED now. Tobacco dependence Prescribed nicotine patches and lozenges. - Influenza B (ID NOW Rapid Molecular) - Influenza A (ID NOW Rapid Molecular) - POCT Rapid COVID Ag - POCT ID NOW Rapid Strep A manually resulted Other orders - nicotine (Nicoderm CQ) 14 MG/24HR patch; Place 1 patch on the skin 1 (one) time each day at the same time. - nicotine (Nicoderm CQ) 21 MG/24HR patch; Place 1 patch on the skin 1 (one) time each day at the same time. - nicotine (Nicoderm CQ) 7 MG/24HR patch; Place 1 patch on the skin 1 (one) time each day at the same time. - nicotine polacrilex (Commit) 4 MG lozenge; Dissolve 1 lozenge (4 mg) in the mouth every 2 (two) hours if needed for smoking cessation. documented in this encounter Plan of Treatment Not on file documented as of this encounter Procedures Procedure Name Priority Date/Time Associated Diagnosis Comments POCT INFLUENZA B (ID NOW RAPID MOLECULAR) Routine 03/25/2025 3:20 PM EST Cough in adult patient POCT RAPID COVID ANTIGEN Routine 03/25/2025 3:20 PM EST Cough in adult patient POCT INFLUENZA A (ID NOW RAPID MOLECULAR) Routine 03/25/2025 3:19 PM EST Cough in adult patient POC MORENO ID NOW STREP A Routine 03/25/2025 3:19 PM EST Cough in adult patient documented in this encounter Results * POCT Rapid COVID Ag (03/25/2025 3:20 PM EST) [facility] Rapid COVID Ag Negative Swab 03/25/2025 3:20 PM EST us Deion Ryan MD POINT OF CARE TEST ENTER/EDIT OR DERABLES Final Result * Influenza B (ID NOW Rapid Molecular) (03/25/2025 3:20 PM EST) [facility] Influenza B Negative Negative, Indeterminate [facility] Swab 03/25/2025 3:20 PM EST us Deion Ryan MD POINT OF CARE TEST ENTER/EDIT OR DERABLES Final Result Performing Organization Address [facility] de Phone Number [facility] [address] [place] [phone] * POCT ID NOW Rapid Strep A manually resulted (03/25/2025 3:19 PM EST) [facility] Rapid Strep A Screen Negative Negative, None Detected Swab 03/25/2025 3:19 PM EST us Deion Ryan MD POINT OF CARE TEST ENTER/EDIT OR DERABLES Final Result * (ABNORMAL) Influenza A (ID NOW Rapid Molecular) (03/25/2025 3:19 PM EST) [facility] Influenza A Positive( A) Negative, Indeterminate [facility] Swab 03/25/2025 3:19 PM EST us Deion Ryan MD POINT OF CARE TEST ENTER/EDIT OR DERABLES Final Result Performing Organization Address [facility] de Phone Number [facility] [address] [place] [address] [place] [phone] documented in this encounter Visit Diagnoses Diagnosis Influenza A- Primary Influenza with other respiratory manifestations Rectal bleeding Hemorrhage of rectum and anus Bronchospasm Acute bronchospasm Tachycardia Unspecified tachycardia Tobacco dependence Tobacco use disorder Cough in adult patient documented in this encounter Additional Health Concerns Assessment Noted Time PHQ-9 Depression Total Score: 13 025 3:56 PM EDT documented as of this encounter Care Teams Bass Mechanism Maker Relationship Specialty Start Date End Date Maggi Sparrow MD [address] [place] [phone] PCP - General Family Medicine 02/26/20 documented as of this encounter
[2025-03-25 15:53] VITALS: BP 148/60; PULSE 109; RESP 20; TEMP 37.1; O2SAT 96; BMI 45.6
--- NOTE | 2025-03-25 15:55 | ED.GENADULT ---
HPI - General Adult General Chief complaint: Upper Respiratory Symptoms Stated complaint: dry cough wheezing and sob Related Data Home Medications ?Medication ?Instructions ?Recorded ?Confirmed trazodone 50 mg tablet 50 mg PO BEDTIME PRN 05/08/23 10/01/24 Previous Rx's ?Medication ?Instructions ?Recorded cholecalciferol (vitamin D3) 50 2,000 unit PO DAILY #90 caps 06/10/24 mcg (2,000 unit) capsule (Vitamin D3) esomeprazole magnesium 40 mg 40 mg PO DAILY #90 caps 12/08/24 capsule,delayed release (Nexium) famotidine 40 mg tablet 40 mg PO BEDTIME #30 tabs 12/08/24 Allergies Allergy/AdvReac Type Severity Reaction Status Date / Time Penicillins Allergy Unknown Verified 03/25/25 15:59 PMFSH Past Medical History Surgical History Hx of colonoscopy History of esophagogastroduodenoscopy (EGD) Hx of section Family History Family History Mother Cancer Social History Social History Patient Tobacco Use Status: Current everyday Tobacco user Years Smoked: since 19 yrs old Advance Directives: No Advance Directives Information Provided: No Do you have a plan to hurt others: No Plan Physical Exam ED Vital Signs: Vital Signs - 24 hr 03/25/25 15:53 Temperature 98.8 F Pulse Rate 109 H Respiratory Rate 20 Blood Pressure 148/60 H Pulse Oximetry 96 Oxygen Delivery Method Room Air BMI result Body Mass Index 45.6 Course Course Course Narrative: This is an RME: Additional HPI, ROS, PE not included below will be deferred to primary provider. RME assessment and note performed by: Montserrat Omalley PA-C This is 28-uzzg-stk-female, with a hx of GERD, who presents to the ER with a complaint of wheezing, cough, congestion, diarrhea. patient went to an urgent care and tested positive for flu A. Was told to come to the ED because of dehydration . Plan: Labs Reevaluation(s) Reevaluation #1: Patient left without completing treatment. Medical Decision Making Lab Data 03/25/25 16:32 03/25/25 16:32 Labs: Lab Results 03/25/25 Range/Units 16:32 WBC 4.9 (4.8-10.8) X10*3/uL RBC 5.68 H (4.20-5.50) X10*6/uL Hgb 16.0 (12.0-16.0) g/dl Hct 47.3 H (37.0-47.0) % MCV 83.3 (80.0-98.0) fL MCH 28.2 (27.0-33.0) pg MCHC 33.8 (31.0-35.0) g/dl RDW 13.8 (11.0-16.0) % Plt Count 285 (160-400) X10*3/uL MPV 8.4 L (9.4-12.3) fL Immature Gran % (Auto) 0.2 (0.0-0.4) % Neut % (Auto) 46.2 (45-73) % Lymph % (Auto) 40.9 H (20-40) % Lasalle % (Auto) 11.7 H (2-11) % Eos % (Auto) 0.4 (0-4) % Baso % (Auto) 0.6 (0-2) % Lymph # (Auto) 2.0 (1.2-4.9) X10*3/uL [place]alle # (Auto) 0.6 (0.1-1.2) X10*3/uL Eos # (Auto) 0.0 (0.0-0.4) X10*3/uL Baso # (Auto) 0.0 (0.0-0.2) X10*3/uL Abs Immat Gran (auto) 0.01 (0.00-0.03) X10*3/uL Absolute Neuts (auto) 2.3 (2.0-8.3) x10*3/uL Absolute Nucleated RBC 0.000 (0.0-0.012) X10*3/uL Nucleated RBC % (auto) 0.0 (0.0-0.2) /100WBC Sodium 139 (135-145) mmol/L Potassium 4.2 (3.3-5.1) mmol/L Chloride 103 (96-108) mmol/L Carbon Dioxide 26 (22-29) mmol/L Anion Gap 14 (12-20) BUN 12 (9-16) mg/dL Creatinine 0.77 (0.5-1.4) mg/dL Estim Creat Clear Calc 97.8 Estimated GFR > 60 Random Glucose 102 (60-115) mg/dL Calcium 9.9 D (8.4-10.2) mg/dL Magnesium 2.2 (1.6-2.6) mg/dL Total Bilirubin 0.2 (0.0-1.0) mg/dL Direct Bilirubin < 0.2 (0.0-0.5) mg/dL AST 28 (5-31) U/L ALT 17 (0-31) U/L Alkaline Phosphatase 95 (39-117) U/L Troponin I High Sens < 2.7 (<3.5-17.0) ng/L Total Protein 7.6 (6.5-8.0) g/dL Albumin 4.5 (3.5-5.0) g/dL Lipase 18 (8-78) U/L Influenza Type A (PCR) POSITIVE A (Negative) Influenza Type B (PCR) NEGATIVE (Negative) RSV RNA Qual (PCR) NEGATIVE (Negative) SARS-CoV-2 RNA (RT-PCR) NEGATIVE (Negative) Discharge Plan Discharge Clinical Impression: Cough Patient Disposition: Left W/O Completing Treatment Prescriptions: No Action cholecalciferol (vitamin D3) [Vitamin D3] 50 mcg (2,000 unit) capsule 2,000 unit PO DAILY Qty: 90 3RF esomeprazole magnesium [Nexium] 40 mg capsule,delayed release(DR/EC) 40 mg PO DAILY Qty: 90 3RF famotidine 40 mg tablet 40 mg PO BEDTIME Qty: 30 4RF trazodone 50 mg tablet 50 mg PO BEDTIME PRN Discharge Date/Time: 03/25/25 21:07
--- NOTE | 2025-03-25 16:01 | ECG_ITS ---
Test Reason : tachycardia Blood Pressure : */* mmHG Vent. Rate : 98 BPM Atrial Rate : 98 BPM P-R Int : 132 ms QRS Dur : 68 ms QT Int : 352 ms P-R-T Axes : 72 69 28 degrees QTcB Int : 449 ms Normal sinus rhythm Biatrial enlargement Abnormal ECG When compared with ECG of 28-Dec-2019 07:22, No significant change was found Referred By: Montserrat Omalley Electronically Signed By: HILTON MCLEAN MD
[2025-03-25 16:42] LABS: MANUAL DIFF FLAG NO
[2025-03-25 16:46] LABS: Hematocrit 47.3 % (37.0-47.0); Hemoglobin 16.0 g/dl (12.0-16.0); Imm Gran Abs Auto 0.01 X10*3/uL (0.00-0.03); Imm Gran Pct Auto 0.2 % (0.0-0.4); Lymphocytes Absolute Auto 2.0 X10*3/uL (1.2-4.9); Mean Corpuscular HGB Conc 33.8 g/dl (31.0-35.0); Mean Corpuscular Hemoglobin 28.2 pg (27.0-33.0); Mean Corpuscular Volume 83.3 fL (80.0-98.0); NRBC Abs Auto 0.000 X10*3/uL (0.0-0.012); NRBC Pct Auto 0.0 /100WBC (0.0-0.2); Platelet Count 285 X10*3/uL (160-400); Red Blood Count 5.68 X10*6/uL (4.20-5.50); White Blood Count 4.9 X10*3/uL (4.8-10.8)
[2025-03-25 16:58] LABS: Alanine Aminotransferase 17 U/L (0-31); Albumin Level 4.5 g/dL (3.5-5.0); Alkaline Phosphatase 95 U/L (39-117); Anion Gap 14 (12-20); Aspartate Amino Transferase 28 U/L (5-31); Blood Urea Nitrogen 12 mg/dL (9-16); Calcium 9.9 mg/dL (8.4-10.2); Carbon Dioxide 26 mmol/L (22-29); Chloride 103 mmol/L (96-108); Creatinine Clr Calc Pharmacy 97.8; Estimated Glomerular Filt Rate > 60; Lipase 18 U/L (8-78); Magnesium 2.2 mg/dL (1.6-2.6); Potassium 4.2 mmol/L (3.3-5.1); Sodium 139 mmol/L (135-145); Total Protein 7.6 g/dL (6.5-8.0)
[2025-03-25 17:11] LABS: Troponin-I High Sensitivity < 2.7 ng/L (<3.5-17.0)
[2025-03-25 17:20] LABS: Resp Syncy Virus RNA Qual PCR NEGATIVE (Negative); SARS COV2 PCR INHOUSE NEGATIVE (Negative)
--- OUTSIDE RECORDS SUMMARY | 2025-03-26 01:01 | XMS_ITS | Encounter Summary ---
Author Organization [employer] Address [address] [place] [address] Care Team Providers Care Reeling Operator Name Role Phone Maggi Sparrow MD Primary Care Provider [phone] Encounter Details Date Type Department Care Team ([facility] st Contact Info) Description 09/23/2023 Orders Only [facility] MEDICINE [address] [place], [place] [phone] Maggi Sparrow MD [address] [place], [place] [phone] Postmenopausal bleeding (Primary Dx) Social History Tobacco [...] documented as of this encounter Care Teams Reeling Operator Relationship Specialty Start Date End Date Maggi Sparrow MD [address] [place] [phone] PCP - General Family Medicine 02/26/20 documented as of this encounter
--- OUTSIDE RECORDS SUMMARY | 2025-03-26 01:01 | XMS_ITS | Encounter Summary ---
Author Organization [employer] Address [address] [facility] [address] [place] [address] Care Team Providers Care Brake Lining Finisher Name Role Phone Maggi Sparrow MD Primary Care Provider [phone] Reason for Visit * Reason Onset Date Comments Appointment 10/11/2022 Encounter Details Date Type Department Care Team ([facility] st Contact Info) Description 10/11/2022 Telephone [facility] ADULT DENTAL [address] [place] [address] Beny Bliss, DMD [address] [place] [address] Appointment Social History Tobacco Use Types Packs/Day [...] documented as of this encounter Care Teams Brake Lining Finisher Relationship Specialty Start Date End Date Maggi Sparrow MD [address] [place] [address] PCP - General Family Medicine 02/26/20 documented as of this encounter
--- OUTSIDE RECORDS SUMMARY | 2025-03-26 01:01 | XMS_ITS | Encounter Summary ---
Author Organization [facility] Address [address] [facility] [address] [place] [phone] Phone Care Team Providers Care Range Aid Name Role Phone Pcp, Unknown Primary Care Provider Maggi Rodriguez MD Primary Care Provider + Encounter Details Date Type Department Care Team (Late st Contact Info) Description 09/04/2021 Procedure Pass [facility], Ct Scan - [address] [address] Social History Tobacco Use Types Packs/Day Years [...] 12:47 PM EDT Anna Chatterjee RN * Harmony Suicide Severity Rating Scale (Screener/Recent Self-Report) Question [...] (Past 1 Month) Yes 09/04/2021 12:47 PM FABT Anna Chatterjee RN 4. Active Suicidal Ideation with Some Intent to Act, Without Specific Plan (Past 1 Month) No 09/04/2021 12:47 PM FABT Anna Chatterjee RN 6. Suicidal Behavior (Lifetime) No 05/22/202 2 12:47 PM EDT Anna Chatterjee RN documented as of this encounter Plan of Treatment Not on file documented as of this encounter Visit Diagnoses Not on filedocumented in this encounter Care Teams Range Aid Relationship Specialty Start Date End Date Pcp, Unknown PCP - General 09/04/21 03/13/25 Maggi Sparrow MD [address] [place] [phone] PCP - General Family Medicine 03/14/25 documented as of this encounter Additional Source Comments The information contained in this document represents components of the legal health record. It is not the complete legal health record.[facility]
--- OUTSIDE RECORDS SUMMARY | 2025-03-26 01:01 | XMS_ITS | Patient Health Record ---
Author Organization [facility] Address [address] [place] [address] Support Name Relationship Address Phone Jeromy Cordero Emergency Contact [address] [place] [phone] KATHERIN RUSS Guarantor Unknown [phone] Care Team Providers Care Optometry Professor Name Role Phone Bryan (DO NOT USE) [facility] Primary Care Provi aisha Antolin Bowden Unavailable [phone] Allergies Allergen (clinical drug ingredient) Drug/Non Drug Allergy documented on EMR Reaction Allergy Type Onset Date Status penicillin G Penicillin G Sodium Unknown Drug Allergy Active Reason For Referral No Information Medications Medication SIG (Take, Route, Frequency, Duration) Notes Start Date End Date Status Omeprazole 20 MG Capsule Delayed Release 1 capsule Orally Once a day; Duration: 30 day(s) Stopped 11/29/18 Not-Taking/PRN Ranitidine HCl 300 MG Capsule 1 capsule Orally Twice a day; Duration: 30 day(s) 12/03/2018 Active Ranitidine HCl 150 MG Capsule 1 capsule at bedtime Orally Once a day; Duration: 30 day(s) Not-Taking/PRN Sucralfate 1 GM Tablet 1 tablet on an empty stomach Orally Twice a day Not-Taking/IN N Immunizations Vaccine Route Administration Date Status Comme nts Influenza Unknown 01/24/2018 Administered Social History Tobacco Use: Social History Observation Description Date Details (start date - stop date) Current Smoker NA - NA Social History Drugs/Alcohol: Social Info Question Answer Notes Alcohol Screen Did you have a drink containing alcohol in the past year? No Points 0 Interpretation Negative Tobacco Use: Social Info Question Answer Notes Tobacco Use/Smoking Patient is a current smoker How often do you smoke cigarettes? every day How many cigarettes a day do you smoke? 6-10 How soon after you wake up do you smoke your first cigarette? 31-60 minutes Are you interested in quitting? 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 Former heavy coffee user--now 1 cup per day Problems Problem Type SNOMED Code ICD Code Onset Dates Problem Status W/U Status Risk Notes Problem Heartburn (67086974) Heartburn (R12) Active confirmed Problem Gastroesophageal reflux disease (479387823) Gastroesophageal reflux disease, esophagitis presence not specified (K21.9) Active confirmed Plan Of Treatment Pending Test Test Name Order Date GI BIOPSY 12/27/2018 Future Test Test Name Order Date UPPER GI ENDOSCOPY 12/03/2018 Insurance Providers Payer Name Payer Address Payer Phone Subscriber Number Group Number Insured Name Patient Relationship to Insured Coverage Start Date Coverage End Date [facility] [address] [address] [place], [place] [phone] [id number] KATHERIN RUSS Self - patient is the insured Medical (General) History Medical History History ICD Code Denies MO,DM,CVA,Lung disease,renal dise ase GERD Surgical History Surgery Date(Month/Year) 1992
--- OUTSIDE RECORDS SUMMARY | 2025-03-26 01:01 | XMS_ITS | Clinical Summary ---
Author Organization [facility] Address [address] [place] [address] Phone Care Team Providers Care Microfilm Mounter Name Role Phone Maggi Sparrow MD Primary Care Provider + Allergies Active Allergy Reactions Criticality Noted Date Comments Penicillins 09/04/2021 Medications methylPREDNISol one (MEDROL DOSEPACK) 4 mg tablet follow package directions 21 tablet Active Encounters Date Type Department Care Team Description 03/14/2025 1:17 PM EST - 03/14/2025 1:45 PM EST Emergency [facility] [address] [place] [address] Anthony Cardenas MD Discharge Disposition: Home or Self Care from Last 3 Months Social History Tobacco Use Types Packs/Day Years Used Date Smoking Tobacco: Every Day Cigarettes Smokeless Tobacco: Never Tobacco Cessation:Ready to Q uit: Not Asked; Counseling Given: Not Answered Alcohol Use Standard Drinks/Week Comments Not Currently 0 (1 standard drink = 0.6 oz pur e alcohol) Education Answer Date Recorded Are you interested in more education? Not on alfredito e 08/12/2022 Are you concerned about learning? Not on file 08/12/2022 No 08/12/2022 No 08/12/2022 Food Answer Date Recorded Within the past 6 months we worried whether our food would run out before we got money to buy more. Never True 03/14/2025 Within the past 6 months the food we bought just didn't last and we didn't have enough money to get more. Never True Residential Stability Answer Date Recor ded What is your housing situation today? I have fannie sing 03/14/2025 How many times have you move d in the past 12 months? Zero (I did not move) 03/14/2025 Paying for Meds Answer Date Recorded Do you have trouble paying for medicines? No 03/14/2025 Paying Utility Bills Answer Date Record ed Do you have trouble paying your heating or elect ricity bill? No 03/14/2025 Transportation Answer Date Recorded Has the lack of transportati on kept you from medical appointments or from getting medications? No 03/14/2025 Digital Access Answer Date Recorded No 03/14/2025 Yes 03/14/2025 Do you have reliable internet access at home? Ye s 03/14/2025 Do you have a device (e.g., phone, tablet, computer) with a working camera? Yes 03/14/2025 Intimate Partner Violence Answer Date R ecorded Are you denied basic needs s uch as food, clothing, or medical care? No 03/14/2025 In the past 12 months have y ou been in a relationship with a person who hurts, threatens, or tries to control you? No 03/14/2025 Are you denied basic needs s uch as food, clothing, or medical care? No 03/14/2025 In the past 12 months have y ou been in a relationship with a person who hurts, threatens, or tries to control you? No 03/14/2025 Comments No Sex and Gender Information Value Date Recorded Sex Assigned at Not on file Legal Sex Female 12:41 PM EDT Gender Identity Not on file Sexual Orientation Not on file Last Filed Vital Signs Vital Sign Reading Time Taken Comments Blood Pressure 111/77 03/14/2025 1:40 PM EST Pulse 87 03/14/2025 1:40 PM EST Temperature 36.7 C (98.1 F) 03/14/2025 1:40 PM EST Respiratory Rate 18 03/14/2025 1:40 PM EST Oxygen Saturation 99% 03/14/2025 1:40 PM EST Inhaled Oxygen Concentration - - Weight 102.1 kg (225 lb) 03/14/2025 1:05 PM EST Height 175.3 cm (5' 9 ) 03/14/2025 1:05 PM EST Body Mass Index 33.23 03/14/2025 1:05 PM EST Plan of Treatment Health Maintenance Due Date Last Done Comments DEPRESSION SCREENING 1984 SMOKING Hx and SMOKELESS TOBACCO SCREENING 1985 HEPATITIS C SCREENING 1990 HIV ONE-TIME SCREENING (18-6 5 YEARS) 1990 PNEUMOCOCCAL VACCINES (50+ years) (1 of 2 - PCV) 1991 PAP SMEAR 1993 COLOGUARD 2017 COLONOSCOPY 2017 COLORECTAL CANCER SCREENING 2017 FIT TEST 2017 FOBT 2017 SIGMOIDOSCOPY 2017 VIRTUAL COLONOSCOPY 2017 ZOSTER VACCINES (1 of 2) 2022 SCREENING FOR DIABETES 09/04/2024 09/04/2021 INFLUENZA VACCINE (#1) 2024 COVID-19 VACCINE (1 - 2024-2 6 season) 2024 Adult Td,Tdap Booster 02/07/2026 02/08/2016 MAMMOGRAM 01/16/2027 01/16/2025, 12/11/2022, 09/18/2018 LIPID PANEL 03/06/2028 03/06/2023 RSV VACCINE (1 - 1-dose 75+ series) 2047 HEPATITIS A VACCINES Aged Out No long er eligible based on patient's age to complete this topic HIB VACCINES Aged Out No longer eligi ble based on patient's age to complete this topic MENINGOCOCCAL VACCINES (ACWY) Aged Out No longer eligible based on patient's age to complete this topic MENINGOCOCCAL VACCINES (B) Aged Out N o longer eligible based on patient's age to complete this topic Medical Devices Not on file Procedures Procedure Name Priority Date/Time Associated Diagnosis Comments XR FINGER 2 OR MORE VIEWS (RIGHT) Routine 03/14/2025 1:17 PM EST from Last 3 Months Results * XR FINGER 2 OR MORE VIEWS (RIGHT) (03/14/2025 1:17 PM EST) Anatomical Region Laterality Modality Hand Right Computed Radiogr aphy 03/14/2025 1:57 PM EST Impressions 03/14/2025 1:58 PM EST No fracture or dislocation. Narrative 03/14/2025 1:58 PM EST XR FINGER 2 OR MORE VIEWS (RIGHT) Referring clinician's provided indication for this examination in Epic: Pain COMPARISON: None FINDINGS: No acute fracture, traumatic malalignment, or dislocation. No significant degenerative changes. No obvious soft tissue hematoma. No retained radiopaque foreign body. Procedure Note Laila Pearl MD - 03/14/2025 XR FINGER 2 OR MORE VIEWS (RIGHT) Referring clinician's provided indication for this examination in Epic:Pain COMPARISON: None FINDINGS: No acute fracture, traumatic malalignment, or dislocation. No significantdegenerative changes. No obvious soft tissue hematoma. No retainedradiopaque foreign body. IMPRESSION: No fracture or dislocation. Anna Bernal PA-C IMG XR UPPER EXT REMITY Final Result from Last 3 Months Insurance [employer] [place] [address] [address] C[employer] C3 A[employer] C3 [facility]CO [facility] C3 ACO Care Teams Microfilm Mounter Relationship Specialty Start Date End Date Maggi Sparrow MD [address] [place] [phone] PCP - General Family Medicine 03/14/25 Additional Source Comments The information contained in this document represents components of the legal health record. It is not the complete legal health record.[facility]
--- OUTSIDE RECORDS SUMMARY | 2025-03-26 01:01 | XMS_ITS | Encounter Summary ---
Author Organization [employer] Address [address] [place] [address] Care Team Providers Care Security Intern Name Role Phone Maggi Sparrow MD Primary Care Provider [phone] Encounter Details Date Type Department Care Team ([facility] st Contact Info) Description 10/21/2024 Orders Only [facility] MEDICINE [address] [place], [place] [phone] Maggi Sparrow MD [address] [place], [place] [phone] Situational anxiety (Primary Dx) Social History Tobacco [...] Procedure Name Priority Date/Time Associated Diagnosis Comments CBC WITH AUTO DIFFERENTIAL Routine 03/25/2025 4:32 PM EST Situational anxiety documented in this encounter Results * (ABNORMAL) CBC auto differential (03/25/2025 4:32 PM EST) White Blood Count 4.9 4.8 - 10.8 X10*3/uL [facility] Red Blood Count 5.68(H) 4.20 - 5.50 X10*6/uL [facility] Hemoglobin 16.0 12.0 - 16.0 g/dl [facility] Hematocrit 47.3(H) 37.0 - 47.0 % [facility] Mean Corpuscular Volume 83.3 80.0 - 98.0 fL [facility] Mean Corpuscular Hemoglobin 28.2 27.0 - 33.0 pg [facility] Mean Corpuscular HGB Conc 33.8 31.0 - 35.0 g/dl [facility] Red Cell Distribution Width 13.8 11.0 - 16.0 % [facility] Platelet Count 285 160 - 400 X10*3/uL [facility] Mean Platelet Volume 8.4(L) 9.4 - 12.3 fL [facility] Neutrophils Percent Auto 46.2 45 - 73 % [facility] Imm Gran Pct Auto 0.2 0.0 - 0.4 % [facility] Lymphocytes Percent Auto 40.9(H) 20 - 40 % [facility] Monocytes Percent Auto 11.7(H) 2 - 11 % [facility] Eosinophils Percent Auto 0.4 0 - 4 % [facility] Basophils Percent Auto 0.6 0 - 2 % [facility] NRBC Pct Auto 0.0 0.0 - 0.2 /100WBC [facility] Neutrophils Absolute Auto 2.3 2.0 - 8.3 x10*3/uL [facility] Imm Gran Abs Auto 0.01 0.00 - 0.03 X10*3/uL [facility] Lymphocytes Absolute Auto 2.0 1.2 - 4.9 X10*3/uL [facility] Monocytes Absolute Auto 0.6 0.1 - 1.2 X10*3/uL [facility] Eosinophils Absolute Auto 0.0 0.0 - 0.4 X10*3/uL [facility] Basophils Absolute Auto 0.0 0.0 - 0.2 X10*3/uL [facility] NRBC Abs Auto 0.000 0.0 - 0.012 X10*3/uL [facility] 03/25/2025 4:32 PM EST 03/25/2025 4:39 PM EST us Generic External Data Provider LAB BLOOD ORDERAB LES Final Result Performing Organization Address City/State/[facility] Co de Phone Number [facility] [address] [place] [phone] documented in this encounter Visit Diagnoses Diagnosis Situational anxiety- Primary documented in this encounter Additional Health Concerns Assessment Noted Time PHQ-9 Depression Total Score: 0 08/31/19 24 3:19 PM EDT documented as of this encounter Care Teams Security Intern Relationship Specialty Start Date End Date Maggi Sparrow MD [address] [place] [address] PCP - General Family Medicine 02/26/20 documented as of this encounter
--- OUTSIDE RECORDS SUMMARY | 2025-03-26 01:01 | XMS_ITS | Encounter Summary ---
Author Organization [employer] Address [address] [place] [address] Care Team Providers Care Iron Worker Apprentice Name Role Phone Maggi Sparrow MD Primary Care Provider [phone] Encounter Details Date Type Department Care Team (Latest Contact Info) Description 03/25/2025 Travel Social History Tobacco Use Types Packs/Day [...] documented as of this encounter Care Teams Iron Worker Apprentice Relationship Specialty Start Date End Date Maggi Sparrow MD [address] [place] [address] PCP - General Family Medicine 02/26/20 documented as of this encounter
--- OUTSIDE RECORDS SUMMARY | 2025-03-26 01:01 | XMS_ITS | Encounter Summary ---
Author Organization [employer] Address [address] [place] [address] Care Team Providers Care Bandoleer Straightener Stamper Name Role Phone Maggi Sparrow MD Primary Care Provider [phone] Reason for Visit * Reason Onset Date Comments ER Expect 03/25/2025 Encounter Details Date Type Department Care Team ([facility] Contact Info) Description 03/25/2025 Telephone [facility] MEDICINE [address] [place] [address] Jane Montana, RN [address] [place] [address] ER Expect Social History Tobacco Use Types Packs/Day Years [...] encounter Miscellaneous Notes * Telephone Encounter - Jane Montana RN - 03/25/2025 3:56 PM EST Telephone call placed to [facility] ED. Spoke to Bruno to give an expect. Informed pt presented to [facility] today with wheezing. Tachycardic at 113bpm, diarrhea with blood on toilet paper earlier today. Pt positive for flu A. Plan was neb treatment and prednisone but pt declined and decided togo to the ED. Pt arriving by private vehicle shortly. Bruno verbalized understanding. documented in this encounter Plan of Treatment Not on file documented as of this encounter Visit Diagnoses Not on filedocumented in this encounter Additional Health Concerns Assessment Noted Time PHQ-9 Depression Total Score: 13 025 3:56 PM EDT documented as of this encounter Care Teams Bandoleer Straightener Stamper Relationship Specialty Start Date End Date Maggi Sparrow MD [address] [place] [address] PCP - General Family Medicine 02/26/20 documented as of this encounter
--- OUTSIDE RECORDS SUMMARY | 2025-03-26 01:01 | XMS_ITS | Encounter Summary ---
Author Organization [employer] Address [address] 7t [place] [address] Care Team Providers Care Floor Clerk Name Role Phone Maggi Sparrow MD Primary Care Provider [phone] Reason for Visit * Reason Onset Date Comments Med Refill 07/17/2023 Encounter Details Date Type Department Care Team ([facility] st Contact Info) Description 07/17/2023 Refill [facility] MEDICINE [address] [place] [address] Maggi Sparrow MD [address] [place] [address] Primary insomnia Social History Tobacco Use Types [...] documented as of this encounter Care Teams Floor Clerk Relationship Specialty Start Date End Date Maggi Sparrow MD [address] [place] [phone] PCP - General Family Medicine 02/26/20 documented as of this encounter
--- OUTSIDE RECORDS SUMMARY | 2025-03-26 01:01 | XMS_ITS | Encounter Summary ---
Author Organization [employer] Address [address] [place] [address] Care Team Providers Care Superintendent Marine Name Role Phone Maggi Sparrow MD Primary Care Provider [phone] Encounter Details Date Type Department Care Team (Late st Contact Info) Description 10/09/2022 Abstract [facility] ADULT DENTAL [address] [place] [address] Beny Bliss, DMD [address] [place] [address] Social History Tobacco Use Types Packs/Day Years [...] 09/15 1:04 PM EDT Chito Herrera * How difficult have these problems made it for you to do your work, take care of things at home, or get along with other people? Answer Date of Assessment Author Somewhat difficult 10/10/2022 1:04 PM EDT Chito [...] documented as of this encounter Care Teams Superintendent Marine Relationship Specialty Start Date End Date Maggi Sparrow MD [address] [place] [phone] PCP - General Family Medicine 02/26/20 documented as of this encounter
--- OUTSIDE RECORDS SUMMARY | 2025-03-26 01:01 | XMS_ITS | Encounter Summary ---
Author Organization [employer] Address [address] [place] [address] Care Team Providers Care Environmental Associate Name Role Phone Maggi Sparrow MD Primary Care Provider [phone] Encounter Details Date Type Department Care Team (Late st Contact Info) Description 03/25/2025 Orders Only [facility] External Provider, [facility] Social History Tobacco Use Types Packs/Day Years [...] Name Priority Date/Time Associated Diagnosis Comments XR CHEST 2 VIEWS Routine 03/25/2025 4:41 PM EST HIGH SENSITIVITY TROPONIN I Routine 03/25/2025 4:32 PM EST SARS COV2/INFLUENZA A/B AND RSV RNA QL NAAT Routine 03/25/2025 4:32 PM EST MAGNESIUM Routine 03/25/2025 4:32 PM EST LIPASE Routine 03/25/2025 4:32 PM EST HEPATIC FUNCTION PANEL Routine 03/25/2025 4:32 PM EST BASIC METABOLIC PANEL Routine 03/25/2025 4:32 PM EST documented in this encounter Results * XR Chest 2 Views (03/25/2025 4:41 PM EST) Anatomical Region Laterality Modality Chest Radiographic Clari ging 03/25/2025 4:41 PM EST Narrative 03/25/2025 4:50 PM EST [address] [address] XRay Report Signed Patient: Violette Camacho V MR#: [id number] : 1970 Acct:[id number] Age/Sex: 54 / F ADM Date: 03/25/25 Loc: HO.ED Attending Dr: Ordering Physician: Montserrat Omalley Date of Service: 03/25/25 Procedure(s): XR chest 2V Accession Number(s): [id number] cc: Maggi Sparrow; Montserrat Omalley Reason for Exam: cough, congestion EXAMINATION: XR CHEST CLINICAL INFORMATION: cough, congestion COMPARISON: 03/23/2020 TECHNIQUE: 2 views of the chest were obtained. FINDINGS: No significant abnormality is noted involving the heart, lungs, mediastinum, bony thorax or soft tissues. XR/XR chest 2V IMPRESSION: Unremarkable examination. Electronically signed by: Booker Alvarez MD 03/25/2025 04:47 PM EST RP Dictated By: Booker Alvarez MD Signed By: <Electronically signed by Booker Alvarez MD in OV> 03/25/25 1647 DD/ 1641 TD/TT: 03/25/25 1640 Electrical Discharge Machine Operator: Procedure Note Donotuseinterpreter, Image - 03/25/2025 [place] [address] XRay Report Signed Patient: Violette Camacho VMR#: [id number] : 1970Acct:[id number] Age/Sex: 54 / FADM Date: 03/25/25 Loc: .ED Attending Dr: Ordering Physician: Montserrat Omalley Date of Service: 03/25/25 Procedure(s): XR chest 2V Accession Number(s): [id number] cc: Maggi Sparrow; Montserrat Omalley Reason for Exam: cough, congestion EXAMINATION: XR CHEST CLINICAL INFORMATION: cough, congestion COMPARISON: 03/23/2020 TECHNIQUE: 2 views of the chest were obtained. FINDINGS: No significant abnormality is noted involving the heart, lungs, mediastinum, bony thorax or soft tissues. XR/XR chest 2V IMPRESSION: Unremarkable examination. Electronically signed by: Booker Alvarez MD 03/25/2025 04:47 PM EST RP Dictated By: Booker Alvarez MD Signed By: <Electronically signed by Booker Alvarez MD in OV> 03/25/25 1647 DD/ 1641 TD/TT: 03/25/25 1640 Electrical Discharge Machine Operator: [facility] External Provider IMG XR PROCEDURES Final Result * (ABNORMAL) SARS-CoV-2 RNA, Influenza A/B, and RSV RNA, Ql NAAT (03/25/2025 4:32 PM EST) Influenza A PCR POSITIVE(A) Negative [facility] Influenza B PCR NEGATIVE Negative [facility] Resp Syncy Virus RNA Qual PCR NEGATIVE Negative [facility] SARS COV2 PCR NEGATIVE Negative [facility] Comment:All test results mus t be correlated with clinical findings.Negative results do not preclude SARS-CoV2, influenza Avirus, influenza B virus and/or RSV infectionand should not be used as the sole basis for treatment orother patient management decisions. Negative results must becombined with clinical observations, patient history, andepidemiological information.This test has not been evaluated for monitoring treatment ofinfection.This test has been authorized by the FDA under an EmergencyUse Authorization (EUA) for use by authorized laboratories.Testing performed on the [employer] GeneXpert utilizingreal-time RT-PCR.All SARS CoV2 and positive influenza A/B results arereported to [facility]. 03/25/2025 4:32 PM EST 03/25/2025 4:39 PM EST Generic External Data Provider LAB MICROBIOLOGY - GENERAL ORDERABLES Final Result [facility] [address] [place] [phone] * High Sensitivity Troponin I (03/25/2025 4:32 PM EST) TROPONIN I HIGH SENSITIVITY <2.7 <3.5 - 17.0 ng/L [facility] Comment:The Manning high sens itivity Troponin-I results should beused in conjunction with other diagnostic information suchas ECG, clinical observations and information, and patientsymptoms to aid in the diagnosis of VA. 03/25/2025 4:32 PM EST 03/25/2025 4:39 PM EST us Generic External Data Provider LAB BLOOD ORDERAB LES Final Result Performing Organization Address [facility] Co de Phone Number [facility] [address] [place] [phone] * Lipase (03/25/2025 4:32 PM EST) Lipase 18 8 - 78 U/L [facility] 03/25/2025 4:32 PM EST 03/25/2025 4:39 PM EST Generic External Data Provider LAB BLOOD ORDERAB LES Final Result Performing Organization Address [facility] Co tn Phone Number [facility] [address] [place] [phone] * Magnesium (03/25/2025 4:32 PM EST) Magnesium 2.2 1.6 - 2.6 mg/dL [facility] 03/25/2025 4:32 PM EST 03/25/2025 4:39 PM EST Generic External Data Provider LAB BLOOD ORDERAB LES Final Result Performing Organization Address [facility] de Phone Number [facility] [address] [place] [phone] * Basic Metabolic Panel (03/25/2025 4:32 PM EST) Sodium 139 135 - 145 mmol/L [facility] Potassium 4.2 3.3 - 5.1 mmol/L [facility] Chloride 103 96 - 108 mmol/L [facility] Carbon Dioxide 26 22 - 29 mmol/L [facility] Anion Gap 14 12 - 20 [facility] Urea Nitrogen (BUN) 12 9 - 16 mg/dL [facility] Creatinine, Serum 0.77 0.5 - 1.4 mg/dL [facility] Creatinine Clr Calc Pharmacy 97.8 [facility] Comment:Provided height and weight: 154.94 cm,109.5 kg.eGFR (calculated from the MDRD study equation) and eCrCl(calculated from the Cockcroft-Gault equation) are based ondifferent parameters and may not yield comparable results.If eCrCl result is absurd, please check patient'sheight/weight. Estimated Glomerular Filt Rate >60 [facility] Comment:Chronic Kidney Disea se: Estimated GFR < 60 mL/min/1.87o1Ienzvl Kidney Disease: Estimated GFR < 15 mL/min/1.73m2 Glucose 102 60 - 115 mg/dL [facility] Calcium 9.9 8.4 - 10.2 mg/dL [facility] 03/25/2025 4:32 PM EST 03/25/2025 4:39 PM EST us Generic External Data Provider LAB BLOOD ORDERAB LES Final Result [facility] [address] [place] [address] [phone] * Hepatic Function Panel (03/25/2025 4:32 PM EST) Bilirubin, Total 0.2 0.0 - 1.0 mg/dL [facility] Bilirubin, Direct <0.2 0.0 - 0.5 mg/dL [facility] Aspartate Amino Transferase 28 5 - 31 U/L [facility] Alanine Aminotransferase 17 0 - 31 U/L [facility] Total Protein 7.6 6.5 - 8.0 g/dL [facility] Albumin Level 4.5 3.5 - 5.0 g/dL [facility] Alkaline Phosphatase 95 39 - 117 U/L [facility] 03/25/2025 4:32 PM EST 03/25/2025 4:39 PM EST us Generic External Data Provider LAB BLOOD ORDERAB LES Final Result [facility] [address] [place] [phone] [phone] documented in this encounter Visit Diagnoses Not on filedocumented in this encounter Additional Health Concerns Assessment Noted Time PHQ-9 Depression Total Score: 13 01/12/ 025 3:56 PM EDT documented as of this encounter Care Teams Environmental Associate Relationship Specialty Start Date End Date Maggi Sparrow MD [address] [place] [address] PCP - General Family Medicine 02/26/20 documented as of this encounter
--- OUTSIDE RECORDS SUMMARY | 2025-03-26 01:02 | XMS_ITS | Clinical Summary ---
Author Organization [employer] Address [address] [facility] [address] [place] [address] Care Team Providers Care Head Knitting Machine Fixer Name Role Phone Maggi Sparrow MD Primary Care Provider [phone] Allergies Active Allergy Reactions Criticality Noted Date [...] by mouth Once per day. 4 Active Spacer/Aero-Hold ing Chambers (AeroChamber Holding Chamber) device 1 each 1 (one) time if needed (Use with albuterol inhaler as instructed) for up to 1 dose. 1 each 4 Active Salicylic Acid 40 % pads Apply 1 Pad topically if needed at bedtime (wart). 30 each 3 5 Active PARoxetine (Paxil) 10 MG tablet Take 1 tablet (10 mg) by mouth in the morning. 90 tablet 3 5 026 Active cyclobenzaprine (Flexeril) 5 MG tablet Take 1 tablet (5 mg) by mouth at bedtime. 30 tablet 5 026 Active Diclofenac Sodium (Voltaren Arthritis Pain) 1 % gel Apply 1 Application topically Once per day. 100 g 3 5 Active capsaicin (Capzasin-HP) 0.1 % cream Apply topically 2 times daily. Apply thin layer by topical route up to 4 times daily for pain. 45 g 3 5 Active traZODone (Desyrel) 50 MG tablet Take 1 tablet (50 mg) by mouth at bedtime. 90 tablet 3 5 Active nicotine (Nicoderm CQ) 14 MG/24HR patch Place 1 patch on the skin 1 (one) time each day at the same time. 14 patch 5 026 Active nicotine (Nicoderm CQ) 21 MG/24HR patch Place 1 patch on the skin 1 (one) time each day at the same time. 42 patch 03/25/2025 5:46 PM EST Active nicotine (Nicoderm CQ) 7 MG/24HR patch Place 1 patch on the skin 1 (one) time each day at the same time. 14 patch 5 026 Active nicotine polacrilex (Commit) 4 MG lozenge Dissolve 1 lozenge (4 mg) in the mouth every 2 (two) hours if needed for smoking cessation. 100 lozenge 1 03/25/2025 5:46 PM EST 5 026 Active acetaminophen-co deine (Tylenol w/ Codeine #3) 300-30 MG tabletIndication s:Meralgia paresthetica of right side Take 1 tablet by mouth every 12 (twelve) hours if needed for severe pain. 30 tablet 5 025 Hospital, Clinic, or Other Facility Administered Medication Ordered Dose Route Frequency Start Date End Date Status albuterol (2.5 MG/3ML) 0.083% nebulizer solution 2.5 mgIndications:Bronchos pasm 2.5 mg NEBULIZATION Once 03/25/2025 Active predniSONE (Deltasone) tablet 20 mgIndications:Bronchos pasm 20 mg PO Once 03/25/2025 Active Active Problems Problem Noted Date Diagnosed Date Tobacco dependence 03/25/2025 Acute pain of right knee 01/27/2025 Assessment [...] (01/13/2025 10:02 AM EDT): Referral replaced to gathering machine feeder for EMB Moderate major depression (CMS/HCC) 01/12/2025 Assessment & Plan (01/13/2025 10:06 AM EDT): Severe symptoms currently, including passive SI, wanting pain to end , Francisco Javier in with patient immediately after [...] for lichen sclerosis -will refer to [facility] gathering machine feeder for biopsy before initiating treatment -vaginal swab obtained for BV and yeast testing. Will treat accordingly if positive -vaginal health reviewed. Discouraged against use of soap intravaginally as to not alter vaginal pH -may take benadryl for itching until evaluated by gathering machine feeder. Postmenopausal bleeding 09/03/2023 Assessment & Plan (11/15/2023 4:25 PM EDT): Patient request to procedure to stop when she was being sounded, complied with patient and stopped procedure. She reports she didn't tolerate the sound, at this moment will be better served in FLOOR COVERER office, could consider sedation to assist with [...] CBC without anemia today Primary insomnia 03/10/2023 Perimenopause 09/27/2022 Assessment & Plan (09/27/2022 [...] gastritis 09/27/2022 Overview (09/27/2022): EGD 12/2018 [facility]: Esophagitis with No Niko's + Moderate Active [...] [place]. Mother gave her away to the [facility] and was in [place] from age [...] other medical disorder. 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 Patient will benefit from Ind. Therapy and Medication Management. At this time Violette Camacho meets criteria for Visit Diagnoses: Problem List Items Addressed This Visit Other Mixed anxiety and depressive disorder Patient ready to address current needs Yes Strengths include Family support, and willing to engage in services. PLAN: 1. Follow up with [facility]: Recommended for follow-up: 10/06/22 at 1pm 2. Patient goal is to learn coping skills to manage her sxs and control her anger 3. Behavioral Recommendations a. Ind. Therapy b. Med. management c. Coping skills Median nerve entrapment 09/21/2022 [place] node 09/21/2022 Anxiety 05/07/2018 Resolved Problems Problem Noted Date Diagnosed Date Resolved Date Overweight 03/10/2023 02/11/2025 Obesity (BMI 30-39.9) 03/26/20182022 Sore throat 03/04/2018 03/05/2023 Impacted cerumen 03/04/2018 02/11/2025 Acute conjunctivitis 02/21/2018 025 Acute maxillary sinusitis 02/21/2018 Pain in finger 12/31/2017 03/05/2023 Mood disorder 12/31/2017 03/05/2023 Tobacco dependence syndrome 07/16/2015 11/13/2022 Obesity 07/16/2015 03/05/2023 Encounters * This document contains information received from the source organization and may not represent a complete record from that organization. Date Type Department Care Team Description 03/25/2025 3:20 PM EST Office Visit [facility] [address] [place] [phone] Deion Ryan MD Influenza A (Primary Dx); Rectal bleeding; Bronchospasm; Tachycardia; Tobacco dependence; Cough in adult patient 03/25/2025 Orders Only [facility] External Provider, [facility] 03/25/2025 Telephone [facility] [address] [place] [phone] Jane Montana RN ER Expect 03/25/2025 Travel 02/10/2025 11:15 AM EDT Office Visit [address] [address] Maggi Sparrow MD Meralgia paresthetica of right side (Primary Dx); Gastroesophageal reflux disease without esophagitis; PTSD (post-traumatic stress disorder); Moderate major depression (CMS/HCC) (HCC); Perimenopause; Acute bilateral low back pain without sciatica 02/10/2025 Travel 02/09/[address] [address] Maggi Sparrow MD Chart Prep 02/03/2025 Travel 01/27/2025 10:00 AM EDT Office Visit [facility] [address] [place] [address] Ramesh Bunn MD Acute pain of right knee (Primary Dx) 01/27/2025 Travel 01/12/2025 2:30 PM EDT Office Visit [facility] [address] [place] [address] Maggi Sparrow MD Encounter for screening mammogram [...] Travel 12/25/2024 8:30 AM EDT Office Visit [facility] [address] [place] [address] Beny Bliss DMD Full coverage crown needed for root canal-treated tooth (Primary Dx) from Last 3 Months Immunizations [...] (243 lb) 03/25/2025 3:16 PM EST Height 154.9 cm (5' 1 ) 02/10/2025 11:23 AM EDT Body Mass Index 45.91 02/10/2025 11:23 AM EDT Plan of Treatment Health Maintenance Due Date Last Done Comments CT Colonography 1972 Colonoscopy 1972 Colorectal Cancer Screening 1972 FIT DNA/Cologuard 1972 FIT 1972 FOBT 1972 HIV Screening 1972 Sigmoidoscopy 1972 Alcohol/Substance Use Screening 1984 Family Planning (PISQ) 1987 Hepatitis B Vaccines (1 of 3 - 19+ 3-dose series) 1991 Pneumococcal Vaccine: 50+ Years (1 of 2 - PCV) 1991 RSV Patients and Patients Aged 60 years or older (1 - Risk 50-74 years 1-dose series) 2022 Zoster Vaccines (1 of 2) 2022 SDOH Screening 09/23/2023 09/22/2022 COVID-19 Vaccine (3 - season) 2024 09/15/2020, 08/18/2020 Influenza Vaccine (#1) 2024 , 03/23/2020, 01/15/2018, Additional history exists Dental Oral Exam 01/02/2025 07/01/2024, 06/2022, 03/07/2022, Additional history exists Dental Prophylaxis 01/02/2025 07/01/2024, 11/23/2015 Dental X-Ray: Full Mouth 03/08/2025 022, 03/07/2022, 07/22/2015 Dental X-Ray: Bitewings 07/02/2025 07/02/19 25, 03/07/2022, 07/22/2015 Depression Monitoring 07/12/2025 01/12/2025, 025 Mammogram 01/16/2026 01/16/2025, 12/16, 12/11/2022, Additional history exists Disability Screening 02/03/2026 02/03/2025 DTaP/Tdap/Td Vaccines (2 - Td or Tdap) 02/07/2026 02/08/2016 Tobacco Screening 03/25/2026 03/25/2025 Lipid Panel 03/06/2028 03/06/2023 Cervical Cancer Screening 11/14/2028 HPV/Cotest 11/14/2028 11/15/2023, 08/31/2023 Pap Smear 11/14/2028 11/15/2023, 08/14, 09/20/2020 Hepatitis C Screening Completed 09/20/2020 HIB Vaccines [...] TROPONIN I Routine 03/25/2025 4:32 PM EST LIPASE Routine 03/25/2025 4:32 PM EST MAGNESIUM Routine 03/25/2025 4:32 PM EST BASIC METABOLIC PANEL Routine 03/25/2025 4:32 PM EST HEPATIC FUNCTION PANEL Routine 4:32 PM EST CBC WITH AUTO DIFFERENTIAL Routine 03/25/2025 4:32 PM EST Situational anxiety SARS COV2/INFLUENZA A/B AND RSV RNA QL NAAT Routine 03/25/2025 4:32 PM EST POCT RAPID COVID ANTIGEN Routine 03/25/2025 3:20 PM EST Cough in adult patient POCT INFLUENZA B (ID NOW RAPID MOLECULAR) Routine 03/25/2025 3:20 PM EST Cough in adult patient POC MORENO ID NOW STREP A Routine 03/25/2025 3:19 PM EST Cough in adult patient POCT INFLUENZA A (ID NOW RAPID MOLECULAR) Routine 03/25/2025 3:19 PM EST Cough in adult patient TSH W/REFLEX TO FT4 Routine 01/28/2025 8 :49 AM EDT Class 3 severe obesity without serious comorbidity with body mass index (BMI) of 40.0 to 44.9 in adult, unspecified obesity type (HCC) COMPREHENSIVE METABOLIC PANEL Routine 01/28/2025 8:49 AM EDT Class 3 severe obesity without serious comorbidity with body mass index (BMI) of 40.0 to 44.9 in adult, unspecified obesity type (HCC) HEMOGLOBIN A1C Routine 01/28/2025 8:49 AM EDT Class 3 severe obesity without serious comorbidity with body mass index (BMI) of 40.0 to 44.9 in adult, unspecified obesity type (HCC) XR KNEE 4+ VIEWS RIGHT Routine 10:43 AM EDT Acute pain of right [...] Relevant to Health Maintenance Results * XR Chest 2 Views (03/25/2025 4:41 PM EST) Anatomical Region Laterality Modality Chest Radiographic Clari ging 03/25/2025 4:41 PM EST Narrative 03/25/2025 4:50 PM EST [address] [address] XRay Report Signed Patient: Violette Camacho V MR#: [id number] 477 : 1970 Acct:[id number] Age/Sex: 54 / F ADM Date: 03/25/25 Loc: HO.ED Attending Dr: Ordering Physician: Montserrat Omalley Date of Service: 03/25/25 Procedure(s): XR chest 2V Accession Number(s): [id number] cc: Maggi Sparrow; Montserrat Omalley Reason for [...] 03/25/25 1647 DD/ 1641 TD/TT: 03/25/25 1640 [employer] Granite Polisher: Procedure Note Donotuseinterpreter, Image - 03/25/[address] [address] XRay Report Signed Patient: Violette Camacho VMR#: [id number] 477 : 1970Acct:[id number] Age/Sex: 54 / FADM Date: 03/25/25 Loc: HO.ED Attending Dr: Ordering Physician: Montserrat Omalley Date of Service: 03/25/25 Procedure(s): XR chest 2V Accession Number(s): [id number] cc: Maggi Sparrow; Montserrat Omalley Reason for Exam: cough, congestion EXAMINATION: XR CHEST CLINICAL INFORMATION: cough, congestion COMPARISON: 03/23/2020 TECHNIQUE: 2 views of the chest were obtained. FINDINGS: No significant abnormality is noted involving the heart, lungs, mediastinum, bony thorax or soft tissues. XR/XR chest 2V IMPRESSION: Unremarkable examination. Electronically signed by: Booker Alvarez MD 03/25/2025 04:47 PM EST Dictated By: Booker Alvarez MD Signed By: <Electronically signed by Booker Alvarez MD in OV> 03/25/25 1647 DD/ 1641 TD/TT: 03/25/25 1640 [employer] Gran[employer]isher: [facility] External Provider IMG XR PROCEDURES Final Result * High Sensitivity Troponin I (03/25/2025 4:32 PM EST) TROPONIN I HIGH SENSITIVITY <2.7 <3.5 - 17.0 ng/L [facility] Comment:The [place] high sens itivity Troponin-I results should beused in conjunction with other diagnostic information suchas ECG, clinical observations and information, and patientsymptoms to aid in the diagnosis of [place]. 03/25/2025 4:32 PM EST 03/25/2025 4:39 PM EST Generic External Data Provider LAB BLOOD ORDERAB LES Final Result [facility] [address] [place] [phone] * (ABNORMAL) SARS-CoV-2 RNA, Influenza A/B, and RSV RNA, Ql NAAT (03/25/2025 4:32 PM EST) [facility] Influenza A PCR POSITIVE(A) Negative [facility] Influenza B PCR NEGATIVE Negative [facility] Resp Syncy Virus RNA Qual PCR NEGATIVE Negative [facility] SARS COV2 PCR NEGATIVE Negative [facility] Comment:All test results mus t be [...] use by authorized laboratories.Testing performed on the [employer] GeneXpert utilizingreal-time RT-PCR.All SARS CoV2 and positive influenza A/B results arereported to [facility]. 03/25/2025 4:32 PM EST 03/25/2025 4:39 PM EST us Generic External Data Provider LAB MICROBIOLOGY - GENERAL ORDERABLES Final Result [facility] [address] [place] [address] [phone] * (ABNORMAL) CBC auto differential (03/25/2025 4:32 PM EST) [facility] White Blood Count 4.9 4.8 - 10.8 X10*3/uL [facility] Red Blood Count 5.68(H) 4.20 - 5.50 X10*6/uL [facility] Hemoglobin 16.0 12.0 - 16.0 g/dl [facility] Hematocrit 47.3(H) 37.0 - 47.0 % [facility] Mean Corpuscular Volume 83.3 80.0 - 98.0 fL [facility] Mean Corpuscular Hemoglobin 28.2 27.0 - 33.0 pg [facility] Mean Corpuscular HGB Conc 33.8 31.0 - 35.0 g/dl [facility] Red Cell Distribution Width 13.8 11.0 - 16.0 % [facility] Platelet Count 285 160 - 400 X10*3/uL [facility] Mean Platelet Volume 8.4(L) 9.4 - 12.3 fL [facility] Neutrophils Percent Auto 46.2 45 - 73 % [facility] Imm Gran Pct Auto 0.2 0.0 - 0.4 % [facility] Lymphocytes Percent Auto 40.9(H) 20 - 40 % [facility] Monocytes Percent Auto 11.7(H) 2 - 11 % [facility] Eosinophils Percent Auto 0.4 0 - 4 % [facility] Basophils Percent Auto 0.6 0 - 2 % [facility] NRBC Pct Auto 0.0 0.0 - 0.2 /100WBC [facility] Neutrophils Absolute Auto 2.3 2.0 - 8.3 x10*3/uL [facility] Imm Gran Abs Auto 0.01 0.00 - 0.03 X10*3/uL [facility] Lymphocytes Absolute Auto 2.0 1.2 - 4.9 X10*3/uL [facility] Monocytes Absolute Auto 0.6 0.1 - 1.2 X10*3/uL [facility] Eosinophils Absolute Auto 0.0 0.0 - 0.4 X10*3/uL [facility] Basophils Absolute Auto 0.0 0.0 - 0.2 X10*3/uL [facility] NRBC Abs Auto 0.000 0.0 - 0.012 X10*3/uL [facility] 03/25/2025 4:32 PM EST 03/25/2025 4:39 PM EST us Generic External Data Provider LAB BLOOD ORDERAB LES Final Result [facility] [address] [place] [phone] * Magnesium (03/25/2025 4:32 PM EST) Magnesium 2.2 1.6 - 2.6 mg/dL [facility] 03/25/2025 4:32 PM EST 03/25/2025 4:39 PM EST Generic External Data Provider LAB BLOOD ORDERAB LES Final Result Performing Organization Address City/[facility]/ZIP Co de Phone Number [facility] [address] [place] [phone] * Lipase (03/25/2025 4:32 PM EST) Lipase 18 8 - 78 U/L [facility] 03/25/2025 4:32 PM EST 03/25/2025 4:39 PM EST Generic External Data Provider LAB BLOOD ORDERAB LES Final Result Performing Organization Address [facility] Co de Phone Number [facility] [address] [place] [phone] * Hepatic Function Panel (03/25/2025 4:32 PM EST) Bilirubin, Total 0.2 0.0 - 1.0 mg/dL [facility] Bilirubin, Direct <0.2 0.0 - 0.5 mg/dL [facility] Aspartate Amino Transferase 28 5 - 31 U/L [facility] Alanine Aminotransferase 17 0 - 31 U/L [facility] Total Protein 7.6 6.5 - 8.0 g/dL [facility] Albumin Level 4.5 3.5 - 5.0 g/dL [facility] Alkaline Phosphatase 95 39 - 117 U/L [facility] 03/25/2025 4:32 PM EST 03/25/2025 4:39 PM EST us Generic External Data Provider LAB BLOOD ORDERAB LES Final Result Performing Organization Address City/[facility]/ZIP Co de Phone Number [facility] [address] [place] [phone] * Basic Metabolic Panel (03/25/2025 4:32 PM EST) Sodium 139 135 - 145 mmol/L [facility] Potassium 4.2 3.3 - 5.1 mmol/L [facility] Chloride 103 96 - 108 mmol/L [facility] Carbon Dioxide 26 22 - 29 mmol/L [facility] Anion Gap 14 12 - 20 [facility] Urea Nitrogen (BUN) 12 9 - 16 mg/dL [facility] Creatinine, Serum 0.77 0.5 - 1.4 mg/dL [facility] Creatinine Clr Calc Pharmacy 97.8 [facility] Comment:Provided height and weight: 154.94 cm,109.5 kg.eGFR (calculated from the MDRD study equation) and eCrCl(calculated from the Cockcroft-Gault equation) are based ondifferent parameters and may not yield comparable results.If eCrCl result is absurd, please check patient'sheight/weight. Estimated Glomerular Filt Rate >60 [facility] Comment:Chronic Kidney Disea se: Estimated GFR < 60 mL/min/1.52g1Klrgwt Kidney Disease: Estimated GFR < 15 mL/min/1.73m2 Glucose 102 60 - 115 mg/dL [facility] Calcium 9.9 8.4 - 10.2 mg/dL [facility] 03/25/2025 4:32 PM EST 03/25/2025 4:39 PM EST us Generic External Data Provider LAB BLOOD ORDERAB LES Final Result Performing Organization Address City/[facility]/ZIP Co de Phone Number [facility] [address] [place] [phone] * Influenza B (ID NOW Rapid Molecular) (03/25/2025 3:20 PM EST) [facility] Influenza B Negative Negative, Indeterminate [facility] Swab 03/25/2025 3:20 PM EST us Deion Ryan MD POINT OF CARE TEST ENTER/EDIT OR DERABLES Final Result Performing Organization Address [facility] de Phone Number [facility] [address] [place] [phone] * POCT Rapid COVID Ag (03/25/2025 3:20 PM EST) [facility] Rapid COVID Ag Negative Swab 03/25/2025 3:20 PM EST us Deion Ryan MD POINT OF CARE TEST ENTER/EDIT OR DERABLES Final Result * (ABNORMAL) Influenza A (ID NOW Rapid Molecular) (03/25/2025 3:19 PM EST) [facility] Influenza A Positive( A) Negative, Indeterminate [facility] Swab 03/25/2025 3:19 PM EST Result Anne Ryan MD POINT OF CARE TEST ENTER/EDIT OR DERABLES Final Result Performing Organization Address [facility] de Phone Number [facility] [address] [place] [phone] * POCT ID NOW Rapid Strep A manually resulted (03/25/2025 3:19 PM EST) [facility] Rapid Strep A Screen Negative Negative, None Detected Swab 03/25/2025 3:19 PM EST Result Anne Ryan MD POINT OF CARE TEST ENTER/EDIT OR DERABLES Final Result * TSH W/Reflex to FT4 (01/28/2025 8:49 AM EDT) [facility] TSH reflex Free T4 1.29 0.32 - 4.0 uIU/mL [facility] Blood Venous blood specimen / Unknown 01/28/2025 8:49 AM EDT 01/28/2025 11:06 AM EDT Maggi Sparrow MD LAB BLOOD ORDERABLES Final Res ult Performing Organization Address [facility] de Phone Number [facility] [address] [place] [phone] * Hemoglobin A1c (01/28/2025 8:49 AM EDT) Hemoglobin A1c 5.6 <6.0 % [facility] Comment:Hemoglobin A1C Refer ence Range Adults: 4.8 - 6.0 % Non diabetic: < 6.0 % Goal: < 7.0 %Additional Action Suggested: > 8.0 %Note: Hemoglobin A1c results are invalid for patients with abnormal amounts of HbF. Blood transfusions may impact the HbA1c concentration in the patient sample. Estimated Average Glucose 114 mg/dL [facility] Comment:eAG = Estimated ave rage glucose which is %A1C expressed asaverage glucose, using the formula of the I4L-YpytgfhBbzljge Glucose study (ADAG), Diabetes Care, Vol.31,#8,2007 Blood Venous blood specimen / Unknown 01/28/2025 8:49 AM EDT 01/28/2025 11:06 AM EDT Maggi Sparrow MD LAB BLOOD ORDERABLES Final Res ult Performing Organization Address [facility] Co de Phone Number [facility] [address] [place] [phone] * (ABNORMAL) Comprehensive Metabolic Panel (01/28/2025 8:49 AM EDT) Sodium 141 135 - 145 mmol/L [facility] Potassium 4.3 3.3 - 5.1 mmol/L [facility] Chloride 109(H) 96 - 108 mmol/L [facility] Carbon Dioxide 26 22 - 29 mmol/L [facility] Anion Gap 10(L) 12 - 20 [facility] Urea Nitrogen (BUN) 10 9 - 16 mg/dL [facility] Creatinine, Serum 0.65 0.5 - 1.4 mg/dL [facility] Estimated Glomerular Filt Rate >60 [facility] Comment:Chronic Kidney Disea se: Estimated GFR < 60 mL/min/1.61j4Kaejam Kidney Disease: Estimated GFR < 15 mL/min/1.73m2 Glucose 101 60 - 115 mg/dL [facility] Calcium 8.9 8.4 - 10.2 mg/dL [facility] Bilirubin, Total 0.3 0.0 - 1.0 mg/dL [facility] Aspartate Amino Transferase 23 5 - 31 U/L [facility] Alanine Aminotransferase 17 0 - 31 U/L [facility] Total Protein 6.7 6.5 - 8.0 g/dL [facility] Albumin Level 3.9 3.5 - 5.0 g/dL [facility] Alkaline Phosphatase 87 39 - 117 U/L [facility] Blood Venous blood specimen / Unknown 01/28/2025 8:49 AM EDT 01/28/2025 11:06 AM EDT us Maggi Sparrow MD LAB BLOOD ORDERABLES Final Res ult [facility] [address] [place] [phone] [phone] * XR Knee 4+ Views Right (01/27/2025 10:43 AM EDT) Anatomical Region Laterality Modality Lower Extremities, Knee Right Radiogra phic Imaging 01/27/2025 10:4 3 AM EDT Narrative 01/27/2025 11:15 AM EDT [facility] [address] [place] [address] XRay Report Signed Patient: Violette Camacho V MR#: [id number] 477 : 1970 Acct:[id number] Age/Sex: 54 / F ADM Date: 01/27/25 Loc: FRANCESCAX Attending Dr: Ramesh Quinonez MD Ordering Physician: Ramesh Quinonez MD Date of Service: 01/27/25 Procedure(s): XR knee RT 4V Accession Number(s): [id number] cc: Ramesh Quinonez MD; Maggi Sparrow Reason [...] 01/27/25 1112 DD/ 1043 TD/TT: 01/27/25 1100 [employer]isher: Procedure Note Donotuseinterpreter, Image - 01/27/[address] [address] XRay Report Signed Patient: Violette Camacho VMR#: [id number] 477 : 1970Acct:[id number] Age/Sex: 54 / FADM Date: 01/27/25 Loc: NICKCX Attending Dr: Ramesh Quinonez MD Ordering Physician: Ramesh Quinonez MD Date of Service: 01/27/25 Procedure(s): XR knee RT 4V Accession Number(s): [id number] cc: Ramesh Quinonez MD; Maggi Sparrow Reason [...] 01/27/25 1112 DD/ 1043 TD/TT: 01/27/25 1100 [employer]isher: us Ramesh Lopez MD IMG XR PROCEDURES Fin al Result * BI Mammogram Screening Tomosynthesis Bilateral (01/16/2025 11:49 AM EDT) Anatomical Region Laterality Modality Breast Bilateral Mammography 01/16/2025 11:4 9 AM EDT Narrative 01/24/2025 2:56 PM EDT [facility]'[address] [place] [address] Mammography Report Signed Patient: Violette Camacho V MR#: [id number] 477 : 1970 Acct:[id number] Age/Sex: 54 / F ADM Date: 01/16/25 Loc: HO.MAMMO Attending Dr: Maggi Sparrow MD Ordering Physician: Maggi Sparrow Results: 1Negative Date of Service: 01/16/25 Follow Up: 1 Year From [facility] Mammogram Procedure(s): MM tomosynthesis screening BI Accession Number(s): [id number] cc: Maggi Sparrow Reason For Exam: routine [...] 01/24/25 1453 DD/ 1149 TD/TT: 01/16/25 1155 [employer]isher: Procedure Note Donotuseinterpreter, Image - 01/24/2025 [facility] [address] [place], [place] [address] Mammography Report Signed Patient: Violette Camacho VMR#: [id number] 477 : 1970Acct:[id number] Age/Sex: 54 / FADM Date: 01/16/25 Loc: HO.MAMMO Attending Dr: Maggi Sparrow MD Ordering Physician: Calixto Sparrowults: 1Negative Date of Service: 01/16/25Follow Up: 1 Year From Orig inal Mammogram Procedure(s): MM tomosynthesis screening BI Accession Number(s): [id number] cc: Maggi Sparrow Reason For Exam: routine [...] 01/24/25 1453 DD/ 1149 TD/TT: 01/16/25 1155 [place] And Granite Polisher: Maggi Sparrow MD IMG BI PROCEDURES Final Result * Pap Smear (11/15/2023 4:20 PM EDT) SOURCE: SEE NOTE [facility] Comment:None given Report Status: [facility] Clinical Information: SEE NOTE [facility] Comment:None given LMP: SEE NOTE [facility] Comment:NONE GIVEN Prev. PAP: SEE NOTE [facility] Comment:NONE GIVEN Prev. BX: SEE NOTE [facility] Comment:NONE GIVEN Statement Of Adequacy: SEE NOTE [facility] Comment:Satisfactory for edith luation.Endocervical/transformation zone componentpresent. General Categorization: [facility] Interpretation/Result: SEE NOTE [facility] Comment:Cytology Results: Ne gative for intraepitheliallesion or malignancy. Cytology Comment SEE NOTE [facility] Comment:This Pap test has be en evaluated with computerassisted technology. Asset Protection Professional: SEE NOTE [facility] Comment:CMB, CT(ASCP) CT Scr eening Location: [facility] [address] [address]Zudqb preparation performed at: [facility], [address] [place] [id number] CLIA No. [id number] Review Asset Protection Professional: [facility] Pathologist [facility] PAP Infection [facility] See Note SEE [facility] Comment:EXPLANATORY NOTE:The Pap is a screening test for cervical cancer. It isnot a diagnostic test and is subject to false negativeand false positive results. It is most reliable when asatisfactory sample, regularly obtained, is submittedwith relevant clinical findings and history, and whenthe Pap result is evaluated along with historic andcurrent clinical information.THIS TEST WAS PERFORMED AT:[facility] [address] [id number] MERATI,MD Pap Vial Vaginal structure / Unknown 11/15/2023 4:20 PM EDT 11/15/2023 6:14 PM EDT Narrative [facility] - 11/21/2023 3:04 PM EDT SEE SCANNED RESULTS IN EMR us Keren Davis MD LAB PATHOLOGY ORDERABLES Ne stoll Result [facility] [address] [place] [phone] * HPV mRNA E6/E7 w/Reflex to HPV Genotypes 16, 18/45 (11/15/2023 4:20 PM EDT) HPV nRNA E6/E7 Not Detected Not Detected [facility] Comment:Methodology: Transcr iption-Mediated AmplificationThis assay detects E6/E7 viral messenger RNA (mRNA) from 14high-risk HPV types (16,18,31,33,35,39,45,51,52,56,58,59,66,68).Cervical sources are required for HPV testing.If a vaginal source from a patient who has had atotal hysterectomy with removal of cervix wassubmitted, please contact the testing laboratoryfor alternative testing options.For additional information, please refer tohttp://education.[employer]/faq/KDH925y1(This link if provided for information/educational purposes only.)THIS TEST WAS PERFORMED AT:[facility] [address] [id number] CURIEL MD HPV mRNA E6/E7 TNP [facility] HPV 16 RNA TNP [facility] HPV 18/45 RNA [facility] Vaginal Fluid Cervix uteri structure / Unknown 11/15/2023 4:20 PM EDT 11/15/2023 6:14 PM EDT Narrative [facility] - 11/21/2023 3:05 PM EDT Collection Date: [id number] by: MAGO Contreras: Cervix us Keren Davis MD LAB CYTOLOGY ORDERABLES Final Result Performing Organization Address [facility] Co de Phone Number [facility] [address] [place] [phone] * (ABNORMAL) Lipid Panel, Standard (03/06/2023 8:03 AM EST) Triglycerides 68 <150 mg/dL [facility] Comment:Desirable Triglyceri de: less than 150 mg/dLBorderline High Triglyceride 150-199 mg/dLHigh Triglyceride: 200-499 mg/dLVery High Triglyceride: greater than or equal to 5OO mg/dL Cholesterol 171 <200 mg/dL [facility] Comment:Desirable Cholestero l: less than 200 mg/dLBorderline High Cholesterol: 200-239 mg/dLHigh Cholesterol: greater than 239 mg/dL LDL Cholesterol Calculated 115(H) <100 mg/dL [facility] Comment:Desirable LDL: less than 100 mg/dLNear Optimal/Above Optimal LDL: 110- 129 mg/dLBorderline High LDL: 130-159 mg/dLHigh LDL: 160-189 mg/dLVery High LDL: greater than or equal to 190 mg/dL HDL Cholesterol 43 >40 mg/dL [facility] Comment:Desirable HDL: great er than 40 mg/dL Note: This HDL assay may give artificially low results in patients with liver disease. Blood Venous blood specimen / Unknown 03/06/2023 8:03 AM EST 03/06/2023 11:16 AM EST us Maggi Sparrow MD LAB BLOOD ORDERABLES Final Res ult Performing Organization Address [facility]/ZIP Co de Phone Number [facility] [address] [place] [phone] * HEPATITIS C AB W/REFL TO HCV RNA, QN, PCR (09/20/2020 9:37 AM EDT) HEPATITIS C ANTIBODY NON-REACT JOHN NON-REACT JOHN [facility] INDEX 0.03 <1.00 [facility] Comment: HCV antibody was non-reactive. There is no laboratory evidence of HCV infection. In most cases, no further action is required. However, if recent HCV exposure is suspected, a test for HCV RNA (test code 44154) is suggested. 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
== END 2025-03-25 21:07 | disposition left against medical advice (07) ==
LOC: HO.ED 20:53
PROVIDERS: Physician Assistant Medical; Emergency Provider Emergency Medicine; PCP General Practice
DX: J10.1 Influenza due to other identified influenza virus with other respiratory manifestations (principal); R05.9 Cough, unspecified; R06.02 Shortness of breath; Z03.818 Encounter for observation for suspected exposure to other biological agents ruled out; Z79.899 Other long term (current) drug therapy
CPT/HCPCS: 36415; 71046; 80048; 80076; 83690; 83735; 84484; 85025; 87637; 93005; 99283

== ENCOUNTER → 2025-03-25 15:59 | Outpatient (BNV) | payer MEDICAID, SELFPAY | PROVIDERS: PCP General Practice; Visit Provider Radiology Diagnostic Radiology | DX: R05.9 Cough, unspecified (principal); R09.89 Other specified symptoms and signs involving the circulatory and respiratory systems | CPT/HCPCS: 71046 ==

== ENCOUNTER → 2025-03-25 16:01 | Outpatient (BNV) | payer MEDICAID, SELFPAY | PROVIDERS: Emergency Provider Emergency Medicine; PCP General Practice; Visit Provider Internal Medicine Cardiovascular Disease | DX: I51.7 Cardiomegaly (principal) | CPT/HCPCS: 93010 ==